=== PATIENT | male | born 1960 | race Caucasian/White ===

== ENCOUNTER 2019-01-29 16:12 | Inpatient (IN) | payer OTHER ==
[~2019-01-29] VITALS: Ht 177.8 cm; Wt 98.8 kg
[2019-01-29] VITALS (17 sets, daily range): BP systolic 98–142; BP diastolic 64–102; PULSE 56–97; RESP 18–21; Ht 177.8 cm; Wt 98.8 kg
[2019-01-29] MEDS ORDERED: ONDANSETRON 4 MG INJ IV STA (16:13)
[2019-01-29] MEDS ORDERED: morphine 4 MG/ML VIAL IV STA (16:13)
[2019-01-29] MEDS ORDERED: FUROSEMIDE 20 MG INJ IV STA (16:13)
[2019-01-29] MEDS ORDERED: NITROGLYCERIN 50 MG/D5W (PMX) 250 ML IV STA (16:13)
[2019-01-29] MEDS ORDERED: ASPIRIN 325 MG TAB PO STA (16:13)
[2019-01-29] MEDS ORDERED: DEXAMETHASONE 10 MG/ML 1 ML INJ IV STA (16:14)
[2019-01-29] MEDS ORDERED: MAGNESIUM SULFATE 2 GM/50 ML 50 ML IVPB STA (16:14)
[2019-01-29] MEDS ORDERED: ALBUTEROL 0.5% (NEB) 2.5 MG/0.5 ML AMP INH STA (16:14)
[2019-01-29] MEDS ORDERED: IPRATROPIUM (NEB) 0.5 MG/2.5 ML AMP INH STA (16:14)
[2019-01-29] MEDS ORDERED: NITROGLYCERIN (SL) 0.4 MG TAB SL PRN (16:30)
[2019-01-29] MEDS ORDERED: PROPOFOL 100 ML ONE (16:39)
[2019-01-29] MEDS ORDERED: PROPOFOL 100 ML IV STA (16:40)
[2019-01-29] MEDS ORDERED: CEFEPIME 2GM/50 ML (PMX) 50 ML IVPB STA (16:44)
[2019-01-29] MEDS ORDERED: SOD CHLORIDE 0.9% 1,000 ML IV STA (16:44)
[2019-01-29] MEDS ORDERED: MIDAZOLAM (DRIP) 50 mg/50 mL 50 ML IV STA (16:44)
[2019-01-29] MEDS ORDERED: FENTAnyl 50 MCG/ML VIAL ONE (16:49)
[2019-01-29] MEDS ORDERED: MIDAZOLAM 1 MG/ML 2 ML INJ ONE (16:55)
[2019-01-29] MEDS ORDERED: FENTAnyl 50 MCG/ML VIAL IV ONE ×2 (17:00→18:30)
[2019-01-29] MEDS ORDERED: SUCCINYLCHOLINE CHLORIDE 100 MG/5 ML SYG IV ONE ×2 (17:00→21:00)
[2019-01-29] MEDS ORDERED: FENTAnyl (DRIP) 1000 mcg/100mL 100 ML IV ONE (17:00)
[2019-01-29] MEDS ORDERED: ETOMIDATE 20 MG INJ IV ONE (17:00)
[2019-01-29] MEDS ORDERED: VANCOMYCIN 1 GM (PMX) 250 ML IVPB ONE (17:00)
[2019-01-29] MEDS ORDERED: MIDAZOLAM 1 MG/ML 2 ML INJ IV ONE ×3 (17:00→18:30)
[2019-01-29] MEDS ORDERED: NORepinephrine 8MG/250 ML (PMX 250 ML ONE (17:05)
[2019-01-29] MEDS ORDERED: ALBU90AE INHALATION (17:22)
[2019-01-29] MEDS ORDERED: ATOR20TA38 PO (17:23)
[2019-01-29] MEDS ORDERED: AZIT250T13 PO (17:24)
[2019-01-29] MEDS ORDERED: BUDE6HFA INHALATION (17:24)
[2019-01-29] MEDS ORDERED: DABI150C PO (17:25)
[2019-01-29] MEDS ORDERED: FURO20TA3 PO (17:25)
[2019-01-29] MEDS ORDERED: GUAI400T22 PO (17:26)
[2019-01-29] MEDS ORDERED: [UNRECOGNIZED DRUG - CODE] PO (17:26)
[2019-01-29] MEDS ORDERED: IRON200V IV (17:28)
[2019-01-29] MEDS ORDERED: LOPE-123 PO (17:28)
[2019-01-29] MEDS ORDERED: LURA40TA PO (17:29)
[2019-01-29] MEDS ORDERED: METF500T24 PO (17:29)
[2019-01-29] MEDS ORDERED: METO-336 PO (17:29)
[2019-01-29] MEDS ORDERED: OMEP40CA6 PO (17:30)
[2019-01-29] MEDS ORDERED: PRED10TA PO (17:32)
[2019-01-29] MEDS ORDERED: SPIR25TA PO (17:33)
[2019-01-29] MEDS ORDERED: VIA100 PO (17:33)
[2019-01-29] MEDS ORDERED: TRAZ-111 PO (17:34)
[2019-01-29] MEDS ORDERED: TIOT18CA INHALATION (17:34)
[2019-01-29] MEDS ORDERED: VALS160T20 PO (17:34)
[2019-01-29] MEDS ORDERED: NORepinephrine 8MG/250 ML (PMX 250 ML IV STA (17:39)
[2019-01-29] MEDS ORDERED: SODIUM CHLORIDE 0.9% 1L BAG IV* STA (17:39)
[2019-01-29] MEDS ORDERED: MIDAZOLAM 1 MG/ML 5 ML INJ IV ONE (18:30)
--- NOTE | 2019-01-29 19:03 | ERD ---
ER Documentation Chief Complaint Chief Complaint sob today, field ekg showed STEMI HPI 58-year-old gentleman presents via EMS for respiratory failure. History is provided by EMS and patient. Patient has a known history of CHF and COPD. It appears the patient has shortness of breath over the past 12 to 24 hours with significant work of breathing requiring positive pressure ventilation via EMS. Upon arrival the patient is in respiratory distress and blood pressure is greater than 200. Patient states this feels more like a COPD exacerbation and CHF but does note lower extremity pitting edema. He denies any chest pain or pr essure. No fevers or chills or cough. Remainder of HPI is very limited given critical nature of the patient. ROS Limited as documented above Medications Home Meds Reported Medications Valsartan* (Diovan*) 160 Mg Tablet, 160 MG PO BID, TAB 01/29/19 Trazodone Hcl* (Trazodone Hcl*) 50 Mg Tablet, 50 MG PO QHS, #30 TAB 01/29/19 Tiotropium [place]* (Spiriva*) 18 Mcg Cap.w.dev, 1 CAP INHALATION DAILY, #30 CAP 01/29/19 Spironolactone* (Aldactone*) 25 Mg Tablet, 25 MG PO DAILY, #30 TAB 01/29/19 Sildenafil Citrate* (Viagra*) 100 Mg Tablet, 100 MG PO TID PRN for FOR PULMONAREY HTN, TAB 01/29/19 Prednisone* (Prednisone*) 10 Mg Tab, 10 MG PO DIRECTED, TAB 2TAB DAILY-FOR 2 DAYS 1TAB DAILY-FOR 2 DAYS 01/29/19 Omeprazole* (Omeprazole*) 40 Mg Capsule.dr, 40 MG PO DAILY, #30 CAP 01/29/19 Metoprolol Succinate* (Toprol XL*) 100 Mg Tab.sr.24h, 100 MG PO DAILY, #30 TAB 01/29/19 Metformin Hcl* (Metformin Hcl*) 500 Mg Tablet, 500 MG PO WITH BREAKFAST DINNE, #60 TAB 01/29/19 Lurasidone Hcl (LATUDA) 40 Mg Tablet, 40 MG PO DAILY, #30 TAB 01/29/19 Loperamide Hcl* (Loperamide Hcl*) 2 Mg Cap, 2 MG PO Q6H, CAP 01/29/19 Iron Sucrose (Venofer) 200 Mg/10 Ml Vial, 10 ML IV Q7D, VIAL 01/29/19 Imatinib Mesylate* (Gleevec*) 100 Mg Tablet, 200 MG PO BID, TAB 01/29/19 Guaifenesin* (Refenesen*) 400 Mg Tablet, 400 MG PO BID PRN for COUGH, TAB 01/29/19 Furosemide* (Furosemide*) 20 Mg Tablet, 20 MG PO BID, #30 TAB 01/29/19 Dabigatran Etexilate Mesylate* (Pradaxa*) 150 Mg Capsule, 150 MG PO Q12H, CAP 01/29/19 Budesonide-Formoterol Fumarate* (Symbicort*) 160-4.5 Hfa.aer.ad, 2 PUFF INHALATION BID, #1 EACH 01/29/19 Azithromycin* (Azithromycin*) 250 Mg Tablet, 250 MG PO DAILY, #4 TAB THREE TIMES A WEEK FOR COPD 01/29/19 Atorvastatin Calcium* (Atorvastatin Calcium*) 20 Mg Tablet, 20 MG PO QHS, #30 TAB 01/29/19 Albuterol Sulfate (Proair Respiclick) 90 Mcg Aer.pow.ba, 2 PUFF INHALATION Q4 PRN for SHORTNESS OF BREATH, #1 BOTTLE 01/29/19 Allergies Allergies: Coded Allergies: No Known Allergy (Unverified , 01/29/19) PMhx/Soc History of Surgery: Yes (neck surgery) Hx Respiratory Disorders: Yes (copd) Hx Cardiac Disorders: Yes (chf) Smoking Status: Unknown if ever smoked FmHx Family History: No diabetes Physical Exam Vitals Vital Signs Date Temp Pulse Resp B/P (MAP) Pulse Ox O2 O2 Flow FiO2 Time Delivery Rate 01/29/19 99 10 100 100 17:05 01/29/19 122 99 100 16:23 01/29/19 121 30 111/82 99 CPAP 16:20 (92) 01/29/19 98.5 125 28 151/104 91 16:14 (120) Physical Exam General: Extreme respiratory distress and diaphoresis Head: Normocephalic, atraumatic. Eyes: Pupils equally reactive, EOM intact ENT: Moist mucous membranes Neck: Supple, no lymphadenopathy Respiratory: Decreased aeration bilaterally with increased work of breathing Cardiovascular: Tachycardia, no murmurs, rubs, or gallops Abdominal: Soft, non-tender, non-distended, no peritoneal signs : Deferred MSK: Bilateral lower extremity pitting edema, no unilateral swelling, 5/5 strength Neurologic: Alert and oriented, moving all extremities, limited exam Skin: No rash Psych: Normal mood Result Diagram: 01/29/19 1617 01/29/19 1617 Results 24 hrs Laboratory Tests Test 01/29/19 16:17 01/29/19 16:26 01/29/19 16:39 White Blood Count 28.8 10^3/ul Red Blood Count 3.79 10^6/ul Hemoglobin 12.4 g/dl Hematocrit 37.2 % Mean Corpuscular Volume 98.2 fl Mean Corpuscular Hemoglobin 32.7 pg Mean Corpuscular 33.3 g/dl Hemoglobin Concent Red Cell Distribution Width 11.9 % Platelet Count 290 10^3/UL Mean Platelet Volume 8.9 fl Immature Granulocytes % 1.200 % Neutrophils % % Segmented Neutrophils % (Manual) 93 % Band Neutrophils % (Manual) 1 % Lymphocytes % % Lymphocytes % (Manual) 6 % Monocytes % % Eosinophils % % Basophils % % Nucleated Red Blood Cells % 0.0 /100WBC Immature Granulocytes # 0.350 10^3/ul Neutrophils # 10^3/ul Neutrophils # (Manual) 26.8 10^3/ul Band Neutrophils # 0.2 10^3/ul Lymphocytes (Manual) 1.7 10^3/ul Lymphocytes # 10^3/ul Monocytes # 10^3/ul Eosinophils # 10^3/ul Basophils # 10^3/ul Nucleated Red Blood Cells # 10^3/ul Platelet Estimate NORMAL Prothrombin Time 13.0 Sec Prothrombin Time Ratio 1.0 INR International Normalized Ratio 0.97 Activated Partial Thromboplast 23.3 Sec Time Sodium Level 140 mmol/L Potassium Level 4.8 mmol/L Chloride Level 95 mmol/L Carbon Dioxide Level 37 mmol/L Anion Gap 8 Blood Urea Nitrogen 26 mg/dl Creatinine 0.82 mg/dl Est Glomerular Filtrat Rate mL/min > 60 mL/min Glucose Level 195 mg/dl Calcium Level 8.5 mg/dl Total Bilirubin 1.8 mg/dl Direct Bilirubin 0.00 mg/dl Indirect Bilirubin 1.8 mg/dl Aspartate Amino Transf (AST/SGOT) 58 IU/L Alanine 50 IU/L Aminotransferase (ALT/SGPT) Alkaline Phosphatase 90 IU/L Troponin I 0.047 ng/ml 0.046 ng/ml B-Type Natriuretic Peptide 1930 PG/ML Total Protein 6.4 g/dl Albumin 3.5 g/dl Globulin 2.90 g/dl Albumin/Globulin Ratio 1.20 POC Venous Lactate 2.6 mmol/L Creatine Kinase 394 IU/L Creatine Kinase Index 1.7 Creatinine Kinase MB (Mass) 6.57 ng/ml Current Medications Medications Dose Sig/Barb Start Time Status Last (Trade) Ordered Route PRN Stop Time Admin Dose Reason Admin Aspirin 325 mg ONCE STAT 01/29/19 DC (Aspirin) PO 16:13 01/29/19 16:14 1 tab Q5M UP TO 3 01/29/19 Nitroglycerin DOSES PRN 16:30 SL .CHEST (Nitroglyceri PAIN n (Sl Tab) 0.4 Mg) 250 ml @ 6 ONCE STAT 01/29/19 01/29/19 Nitroglycerin mls/hr IV 16:13 16:16 / Dextrose 01/31/19 09:52 Morphine 4 mg ONCE STAT 01/29/19 DC Sulfate IV 16:13 (morphine) 01/29/19 16:52 Ondansetron 4 mg ONCE STAT 01/29/19 DC HCl (Zofran IV 16:13 Inj) 01/29/19 16:14 Furosemide 60 mg ONCE STAT 01/29/19 DC (Lasix) IV 16:13 01/29/19 16:14 Albuterol 15 mg ONCE STAT 01/29/19 DC 01/29/19 (Proventil INH 16:14 16:22 0.5% (Neb)) 01/29/19 16:16 Ipratropium 2 mg ONCE STAT 01/29/19 DC 01/29/19 [place] INH 16:14 16:23 (Atrovent 01/29/19 16:17 0.02% (Neb)) 10 mg ONCE STAT 01/29/19 DC 01/29/19 Dexamethasone IV 16:14 16:53 (Decadron) 01/29/19 16:17 Magnesium 50 ml @ 25 ONCE STAT 01/29/19 DC 01/29/19 Sulfate mls/hr IVPB 16:14 16:52 01/29/19 18:13 Propofol 100 ml @ ud STK-MED 01/29/19 DC ONCE .ROUTE 16:39 01/29/19 16:40 Etomidate 20 mg ONCE ONCE 01/29/19 DC 01/29/19 (Amidate) IV 17:00 16:31 01/29/19 17:01 120 mg ONCE ONCE 01/29/19 DC 01/29/19 Succinylcholi IV 17:00 16:31 ne Chloride 01/29/19 17:01 (Anectine Syringe) Propofol 100 ml @ 3 ONCE STAT 01/29/19 DC mls/hr IV 16:40 01/29/19 16:52 Fentanyl 100 ml @ 5 CONTINUOUS 01/29/19 01/29/19 mls/hr DRIP ONCE 17:00 17:19 IV 01/30/19 12:59 Cefepime HCl 50 ml @ ONCE STAT 01/29/19 DC 01/29/19 100 mls/hr IVPB 16:44 17:44 01/29/19 17:13 Vancomycin 250 ml @ ONCE ONCE 01/29/19 01/29/19 HCl 125 mls/hr IVPB 17:00 18:22 01/29/19 18:59 Sodium 1,000 ml @ Q1H STAT 01/29/19 DC 01/29/19 Chloride 1,000 mls/hr IV 16:44 16:44 01/29/19 17:43 Fentanyl 100 mcg ONCE ONCE 01/29/19 DC 01/29/19 (Sublimaze) IV 17:00 17:06 01/29/19 17:01 Midazolam 2 mg ONCE ONCE 01/29/19 DC 01/29/19 HCl IV 17:00 17:06 (Versed) 01/29/19 17:01 Midazolam 50 ml @ 3 ONCE STAT 01/29/19 01/29/19 HCl mls/hr IV 16:44 17:25 01/30/19 09:23 Fentanyl 100 mcg STK-MED 01/29/19 DC (Sublimaze) ONCE .ROUTE 16:49 01/29/19 16:50 Midazolam 2 mg STK-MED 01/29/19 DC HCl ONCE .ROUTE 16:55 (Versed) 01/29/19 16:56 250 ml @ ud STK-MED 01/29/19 DC Norepinephrin ONCE .ROUTE 17:05 e 01/29/19 17:06 Sodium 2,000 ml BOLUS OVER 2 01/29/19 DC 01/29/19 Chloride HOURS STAT 17:39 17:30 (NS) IV* 01/29/19 17:41 250 ml @ ONCE STAT 01/29/19 01/29/19 Norepinephrin 7.5 mls/hr IV 17:39 17:30 e 01/31/19 02:58 Fentanyl 100 mcg ONCE ONCE 01/29/19 DC 01/29/19 (Sublimaze) IV 18:30 18:34 01/29/19 18:31 Midazolam 4 mg ONCE ONCE 01/29/19 DC HCl IV 18:30 (Versed) 01/29/19 18:30 Midazolam 2 mg ONCE ONCE 01/29/19 DC 01/29/19 HCl IV 18:30 17:12 (Versed) 01/29/19 18:31 Midazolam 4 mg ONCE ONCE 01/29/19 DC 01/29/19 HCl IV 18:30 18:34 (Versed) 01/29/19 18:31 Procedures/MDM EKG, MONITORS, & DIAGNOSTIC IMAGING: EKG #1 EKG: I reviewed and interpreted a 12-lead EKG. Rhythm: Sinus tachycardia, wide complex, possible left bundle branch block ST Changes: No contiguous ST segment elevations T waves: No contiguous T wave inversions Impression: Abnormal EKG EKG #2 EKG: I reviewed and interpreted a 12-lead EKG. Rhythm: Sinus tachycardia, left bundle branch block ST Changes: No contiguous ST segment elevations T waves: No contiguous T wave inversions Impression: Abnormal EKG Chest x-ray #1 Chest x-ray: I reviewed and interpreted a 1 view of the chest Mediastinum: No enlargement Cardiac silhouette: No cardiomegaly Airspace: Interstitial process, expanded lung reilly Bones: No evidence of fracture Chest x-ray #2 Chest x-ray: I reviewed and interpreted a 1 view of the chest Mediastinum: No enlargement Cardiac silhouette: No cardiomegaly Airspace: Endotracheal tube in good position, large right-sided pneumothorax Bones: No evidence of fracture Chest x-ray #3 Chest x-ray: I reviewed and interpreted a 1 view of the chest Mediastinum: No enlargement Cardiac silhouette: No cardiomegaly Airspace: Endotracheal tube in good position, resolution of large right-sided pneumothorax Bones: No evidence of fracture PROCEDURES: Intubation Note: Indication: Airway protection Consent: This was an emergent situation, implied consent was observed RSI Medications: Etomidate 20 mg, succinylcholine 120 mg Tube size: 8.0 Secured at: 24 at the mouth Procedure: Endotracheal intubation was performed. The patient was preoxygenated with supplemental oxygen, the room was set up with emergency airway equipment including [id number], suction, and adjunct airways. Direct visualization of the cords was performed with direct laryngoscopy using [video laryngoscope], however I was unable to manipulate the endotracheal tube to the vocal cords given positioning and body habitus of the patient. A bougie was inserted without difficulty and a 7.5 endotracheal tube was inserted without difficulty. However, the balloon of the endotracheal tube seem to have burst and would not stay inflated. The endotracheal tube was exchanged over a bougie with an 8.0 endotracheal tube successfully. Balloon was inflated. Bougie rem katie intact. Bilateral breath sounds were auscultated, color change was observed. The tube was then secured in a postintubation chest x-ray was ordered. The patient tolerated the procedure well there were no complications. Central Line Note: Consent: [Critical patient, unable to obtain informed consent] Indication: Critically ill patient requiring specialized vascular access for fluid or pressor management Location: Right femoral vein Indication: Difficult access given recent chest tube placement and intubation Procedure: Sterile procedure was observed throughout insertion of the central line. The insertion site was prepped with sterile solution. [place] technique was performed. Insertion of a needle into the vein was obtained with return of dark, nonpulsatile blood. The wire was then threaded through the needle without complication. A small skin incision was made, the needle was removed intact, dilation of the vein was performed and insertion of a triple lumen catheter was completed. The catheter was then sutured to the skin. All 3 ports naheed back and flushed without difficulty. A sterile dressing was applied. The patient tolerated the procedure well there were no complications. Chest Tube Placement by me: Patient was critically ill and intubated and cannot provide informed consent. Informed consent assumed. A sterile field was prepped Anesthesia: Patient intubated with sedation and pain medications intravenously Location: Mid-Anterior Axillary Line, approximate 5th intercostal Device: 20 [place] chest tube Technique: Vertical incision, blunt dissection above the superior rib border, tactile confirmation Results: Chest tube fogging Secured with suture and taping. No complications. Attached to hospital for special care. LAB INTERPRETATION: I reviewed the laboratory testing and it shows significant leukocytosis of 28.8 hemoglobin 12.4. Elevated lactic acid of 2.6, no evidence of renal failure. Indeterminate troponin of 0.047 downtrending. Elevated BNP of 1930 MEDICAL DECISION MAKING: The patient presents with significant hypertension, shortness of breath and respiratory failure. The patient was placed on positive pressure ventilation here in the emergency room setting. Given the patient's presentation of severe hypertension, peripheral edema and decreased duration the initial concern was for hypertensive emergency and acute flash pulmonary edema or CHF exacerbation. There is additional concern for COPD exacerbation. The patient was treated for both. Patient initially had an abnormal EKG that was reading acute [place]. However, the EKG did not seem to meet STEMI criteria. An emergent phone call was placed to Dr. Lees, on-call stamp maker. Initial conversation occurred around 4:16 PM. He agrees that the EKG does not fit criteria for STEMI or Supervisor Cloth Winding activation. Patient had no active chest pain or pressure. He recommends medical management, blood pressure control and reassessment. ER COURSE: * Based on the initial assessment the patient was treated for flash pulmonary edema with positive pressure ventilation, preload and afterload reduction including nitroglycerin, Lasix. * The patient had a dramatic improvement of blood pressure but still had significant respiratory distress. He was receiving in-line breathing treatments, steroids, magnesium. I did not feel that epinephrine was appropriate given his possible concomitant CHF and flash pulmonary edema. * The patient shortly after started to inform me that he was feeling tired and did not think that he could breathe on his own any longer. Decision was made to intubate. The patient was explained the risk benefits alternatives and he is agreeable. * Patient was intubated as documented above. * Chest x-ray after intubation showed large right-sided pneumothorax. Likely secondary to barotrauma secondary to positive pressure ventilation from BiPAP and ventilator. * A right-sided chest tube was inserted with inflation of 1 confirmed with chest x-ray imaging. The patient was hypotensive possibly secondary to pneumothorax but additionally possibly secondary to hypovolemia * There is initial concern that the patient would not tolerate volume given hesitation of pulmonary edema however at this point the patient is intubated. A full 30/kg bolus of saline was provided. Blood cultures were taken. Patient was given broad-spectrum antibiotics. I am not convinced this is infectious in etiology. Empiric coverage appropriate. * Patient's blood pressure warranted a central line and a femoral line was placed. Levo was initiated * At this time the patient is critically ill requiring pressors, antibiotics, respiratory support chest tube and central line. CONSULTATION: [None] DISPOSITION PLAN: Accepting care team and consultations: I discussed the current laboratory data, diagnostic imaging and emergency care provided. Admitting team: Dr. Doulgas Admitting team indication: Insurance directed Critical Care Note: Total time: 60min Indication/Organ System Threat: Acute respiratory failure, hypovolemia, shock, right-sided pneumothorax I spent the above amount of critical care time with the patient, not including billable procedures. This included chart review, consultations, repeat bedside evaluations, and titration of appropriate medications to prevent cardiopulmonary or respiratory collapse. Departure Diagnosis: Primary Impression: Acute respiratory failure Respiratory failure complication: hypoxia Qualified Codes: J96.01 - Acute respiratory failure with hypoxia Additional Impressions: Hypertensive emergency COPD exacerbation Pneumothorax, right Shock SIRS (systemic inflammatory response syndrome) Condition: Critical TI POLANCO MD January 29, 2019 19:02
--- NOTE | 2019-01-29 19:17 | HP ---
Date/Time of Note Date/Time of Note DATE: 01/29/19 TIME: 19:08 Assessment/Plan VTE Prophylaxis SCD applied (from Nsg): Yes Pharmacological prophylaxis: heparin Lines/Catheters IV Catheter Type (from Nrsg): Saline Lock Assessment/Plan Hospital Course 58 yo male with likley COPD and CHF though exact history unknown who presented w ith respiratory distress and hypercapneic respiratory failure. Was on BIPAP when decompensated and found to have pneumothorax. Now intubated and with R chest tube Acute hypercapenic respiratory failure: - likely from COPD per reports and respriatory acidosis. will give Bronchodilatros, steroids, abx - Mechanical ventilation per pulmonary Pneumothorax: - Chest tube per pulmonary Further management pendign clinical course To ICU Result Diagram: 01/29/19 1617 01/29/19 1617 Results 24hrs Laboratory Tests Test 01/29/19 16:17 01/29/19 16:26 01/29/19 16:39 01/29/19 16:40 White Blood Count 28.8 H Red Blood Count 3.79 L Hemoglobin 12.4 L Hematocrit 37.2 L Mean Corpuscular 98.2 Volume Mean Corpuscular 32.7 Hemoglobin Mean Corpuscular 33.3 Hemoglobin Concen t Red Cell 11.9 Distribution Width Platelet Count 290 Mean Platelet 8.9 Volume Immature 1.200 H Granulocytes % Neutrophils % Segmented 93 H Neutrophils % (Manual) Band Neutrophils 1 % (Manual) Lymphocytes % Lymphocytes % 6 L (Manual) Monocytes % Eosinophils % Basophils % Nucleated Red 0.0 Blood Cells % Immature 0.350 H Granulocytes # Neutrophils # Neutrophils # 26.8 H (Manual) Band Neutrophils 0.2 # Lymphocytes 1.7 (Manual) Lymphocytes # Monocytes # Eosinophils # Basophils # Nucleated Red Blood Cells # Platelet Estimate NORMAL Prothrombin Time 13.0 Prothrombin Time 1.0 Ratio INR International 0.97 Normalized Ratio Activated 23.3 Partial Thrombopl ast Time Sodium Level 140 Potassium Level 4.8 Chloride Level 95 L Carbon Dioxide 37 H Level Anion Gap 8 Blood Urea 26 H Nitrogen Creatinine 0.82 Est Glomerular > 60 Filtrat Rate mL/min Glucose Level 195 Calcium Level 8.5 Total Bilirubin 1.8 H Direct Bilirubin 0.00 Indirect 1.8 H Bilirubin Aspartate Amino 58 H Transf (AST/SGOT) Alanine 50 Aminotransferase (ALT/SGPT) Alkaline 90 Phosphatase Troponin I 0.047 0.046 B-Type 1930 H Natriuretic Peptide Total Protein 6.4 Albumin 3.5 Globulin 2.90 Albumin/Globulin 1.20 Ratio POC Venous 2.6 *H Lactate Creatine Kinase 394 H Creatine Kinase 1.7 Index Creatinine Kinase 6.57 H MB (Mass) Blood Gas Blood arterial Specimen Source Arterial Blood 01/29/2019 6:35:5 Date Drawn 1 PM Arterial Blood pH 7.237 *L (Temp corrected) Arterial Blood 67.2 H pCO2 (Temp correct) Arterial Blood 432.9 H pO2 (Temp corrected) Arterial Blood 28.0 H HCO3 Arterial Blood -0.5 Base Excess Arterial Blood 99.0 H Oxygen Saturation Adeel Test ACCEPTAB Arterial Blood Left Radial Gas Puncture Site Arterial 0.3 Blood Carboxyhemo globin Arterial Blood 0.3 Methemoglobin Blood Gas A-a O2 212.9 H Differential Oxyhemoglobin 98.4 Percent Blood Gas 37.0 Temperature Blood Gas 10.0 Respiration Rate Blood Gas Actual 10 Respiration Rate Blood Gas VENT - AC Modality FiO2 100.0 Blood Gas Tidal 800.0 Volume Blood Gas Low 5.0 PEEP Setting Blood Gas DR. POLANCO Critical Value Read Back Blood Gas José Manuel Notified Whom Blood Gas 01/29/2019 6:49:2 Notified Time 1 PM HPI/ROS Admit Date/Time Admit Date/Time Hx of Present Illness 58 yo male with unknown PMH who presented with respiratory distress From EMS notes patient was in respiratory distress in the field. Was wheeizng. Given BIPAP in the field and bronchodilators. On arrival here was given BIPAP for suspected COPD vs CHF. Then decompensated and XR showed large pneumothorax. Emergently intubated and now a R chest tube has been placed Pateint sedated on the ventilator at this time ROS Constitutional: no complaints, improved Eyes: no complaints ENT: no complaints Respiratory: no complaints Cardiovascular: no complaints Gastrointestinal: no complaints Genitourinary: no complaints Musculoskeletal: no complaints Skin: no complaints Neurologic: no complaints Endocrine: no complaints Lymphatic: no complaints Psychological: no complaints, nl mood/affect Immunologic: no complaints PMH/Family/Social Past Medical History Medical History: no pertinent history Medications Current Medications Nitroglycerin (Nitroglycerin (Sl Tab) 0.4 Mg) 1 tab Q5M UP TO 3 DOSES PRN SL .CHEST PAIN; Start 01/29/19 at 16:30 Nitroglycerin/ Dextrose 250 ml @ 6 mls/hr ONCE STAT IV Last administered on 01/29/19at 16:16; Admin Dose 30 MLS/HR; Start 01/29/19 at 16:13; Stop 01/31/19 at 09:52 Fentanyl 100 ml @ 5 mls/hr CONTINUOUS DRIP ONCE IV Last administered on 01/29/19at 17:19; Admin Dose 5 MLS/HR; Start 01/29/19 at 17:00; Stop 01/30/19 at 12:59 Midazolam HCl 50 ml @ 3 mls/hr ONCE STAT IV Last administered on 01/29/19at 17:25; Admin Dose 3 MLS/HR; Start 01/29/19 at 16:44; Stop 01/30/19 at 09:23 Norepinephrine 250 ml @ 7.5 mls/hr ONCE STAT IV Last administered on at 17:30; Admin Dose 7.5 MLS/HR; Start 01/29/19 at 17:39; Stop 01/31/19 at 02:58 Coded Allergies: No Known Allergy (Unverified , 01/29/19) Past Surgical History Past Surgical Hx: no surgical history Family History Significant Family History: no pertinent family hx Social History Alcohol Use: none Smoking Status: Unknown if ever smoked Drug Use: none Exam/Review of Systems Vital Signs Vitals Vital Signs Date Temp Pulse Resp B/P (MAP) Pulse Ox O2 O2 Flow FiO2 Time Delivery Rate 01/29/19 56 16 100 40 19:04 01/29/19 64/42 (49) Mechanical 18:45 Ventilator 01/29/19 98.5 16:14 Exam Exam Intubated, sedated Lungs clear anteriorly R sided chest tube RRR Soft nt nd Ext with mild edema, RE Strauss MD January 29, 2019 19:17
[2019-01-29] MEDS ORDERED: NACL 0.9% 3 ML SYG IV SCH (19:30)
[2019-01-29] MEDS ORDERED: LEVOFLOXACIN 750MG/D5W (PMX) 150 ML IVPB SCH (19:30)
[2019-01-29] MEDS ORDERED: NITROGLYCERIN (SL) 0.4 MG TAB ONE (21:00)
[2019-01-29] MEDS ORDERED: ETOMIDATE 20 MG INJ ONE (21:00)
[2019-01-29] MEDS ORDERED: ALBUTEROL/IPRATROPIUM (NEB) 3 ML AMP HHN SCH (21:00)
[2019-01-29] MEDS: MIDAZOLAM (DRIP) 50 mg/50 mL 50 ML IV SCH (21:35)
[2019-01-29] MEDS: METHYLPREDNISOLONE 40 MG INJ IV SCH (21:35)
[2019-01-29] MEDS: ALBUTEROL HFA 8 GM INHALER INH SCH (21:49)
[2019-01-29] MEDS: IPRATROPIUM (HFA) 12.9 GM INHALER INH SCH (21:49)
[2019-01-30] VITALS (97 sets, daily range): BP systolic 76–137; BP diastolic 49–117; PULSE 52–128; RESP 13–33
[2019-01-30] MEDS: FENTAnyl (DRIP) 1000 mcg/100mL 100 ML IV SCH ×3 (00:45→19:56)
[2019-01-30] MEDS: NORepinephrine 8MG/250 ML (PMX 250 ML IV SCH ×2 (00:57→11:09)
[2019-01-30] MEDS: IPRATROPIUM (HFA) 12.9 GM INHALER INH SCH ×6 (01:10→21:29)
[2019-01-30] MEDS: ALBUTEROL HFA 8 GM INHALER INH SCH ×3 (01:10→09:06)
[2019-01-30] MEDS: PROPOFOL 100 ML IV SCH ×2 (03:00→13:06)
[2019-01-30] MEDS: MIDAZOLAM (DRIP) 50 mg/50 mL 50 ML IV SCH ×4 (03:59→19:53)
[2019-01-30] MEDS: FUROSEMIDE 20 MG INJ IV SCH ×2 (05:21→18:03)
[2019-01-30] MEDS: METHYLPREDNISOLONE 40 MG INJ IV SCH ×3 (05:21→23:17)
--- NOTE | 2019-01-30 10:51 | PN ---
Date/Time of Note Date/Time of Note DATE: 01/30/19 TIME: 10:42 Assessment/Plan VTE Prophylaxis Risk score (from Ns)>0 risk: 5 SCD applied (from Ns): Yes Pharmacological prophylaxis: other Lines/Catheters IV Catheter Type (from Nrsg): Central Line Central line still needed: Yes Urinary Cath still in place: Yes Reason Cath still needed: urinary retention Assessment/Plan Hospital Course S: Patient still intubated, unable to get ABG this morning. About to be started on tube feeds. On pressor support as well. O: VS- see below PE: Intubated, sedated Lungs clear anteriorly R sided chest tube in place RRR Soft nt nd Ext with mild edema, wamr A/P: 58 yo male with likely COPD and CHF though exact history unknown who presented with respiratory distress and hypercapneic respiratory failure. Was on BIPAP when decompensated and found to have pneumothorax, intubated and with R chest tube. # Acute hypercapenic respiratory failure- likely from COPD per reports and respiratory acidosis -slowly improving -For now continue as needed Bronchodilatros, steroids, abx -Monitor white blood cell, continue mechanical ventilation per pulmonary # Pneumothorax: Found on chest x-ray yesterday, although chest x-ray this mo rning appears to not show any more pneumothorax. Chest tube placed yesterday in the ER. -Monitor, will consult CTS team for chest tube management -Also follow up pulmonary recommendations #Leukocytosis: No fevers. Patient is on steroids, however white blood cell count hovering in the 28-30 range. -Continue broad-spectrum antibiotics, also check UA and follow-up blood culture results -Consider infectious disease consult Dispo: Further management pending clinical course Result Diagram: 01/30/19 0446 01/30/19 0446 Results 24hrs Laboratory Tests Test 01/29/19 16:17 01/29/19 16:26 01/29/19 16:39 01/29/19 16:40 White Blood 28.8 H Count Red Blood Count 3.79 L Hemoglobin 12.4 L Hematocrit 37.2 L Mean 98.2 Corpuscular Volume Mean 32.7 Corpuscular Hemoglobin Mean 33.3 Corpuscular Hemoglobin Conc ent Red Cell 11.9 Distribution Width Platelet Count 290 Mean Platelet 8.9 Volume Immature 1.200 H Granulocytes % Neutrophils % 89.0 H Segmented 93 H Neutrophils % (Manual) Band 1 Neutrophils % (Manual) Lymphocytes % 5.9 L Lymphocytes % 6 L (Manual) Monocytes % 3.6 Eosinophils % 0.1 Basophils % 0.2 Nucleated Red 0.0 Blood Cells % Immature 0.350 H Granulocytes # Neutrophils # 25.7 H Neutrophils # 26.8 H (Manual) Band 0.2 Neutrophils # Lymphocytes 1.7 (Manual) Lymphocytes # 1.7 Monocytes # 1.1 H Eosinophils # 0.0 Basophils # 0.1 Nucleated Red 0.0 Blood Cells # Platelet NORMAL Estimate Prothrombin 13.0 Time Prothrombin 1.0 Time Ratio INR 0.97 International Normalized Rati o Activated 23.3 Partial Thrombo plast Time Sodium Level 140 Potassium Level 4.8 Chloride Level 95 L Carbon Dioxide 37 H Level Anion Gap 8 Blood Urea 26 H Nitrogen Creatinine 0.82 Est Glomerular > 60 Filtrat Rate mL/min Glucose Level 195 Calcium Level 8.5 Total Bilirubin 1.8 H Direct 0.00 Bilirubin Indirect 1.8 H Bilirubin Aspartate Amino 58 H Transf (AST/SGO T) Alanine 50 Aminotransferas e (ALT/SGPT) Alkaline 90 Phosphatase Troponin I 0.047 0.046 B-Type 1930 H Natriuretic Peptide Total Protein 6.4 Albumin 3.5 Globulin 2.90 Albumin/Globuli 1.20 n Ratio POC Venous 2.6 *H Lactate Creatine Kinase 394 H Creatine Kinase 1.7 Index Creatinine 6.57 H Kinase MB (Mass) Blood Gas Blood Specimen arterial Source Arterial Blood 01/29/2019 6:35 Date Drawn :51 PM Arterial Blood 7.237 *L pH (Temp corrected ) Arterial Blood 67.2 H pCO2 (Temp correct) Arterial Blood 432.9 H pO2 (Temp corrected ) Arterial Blood 28.0 H HCO3 Arterial Blood -0.5 Base Excess Arterial Blood 99.0 H Oxygen Saturati on Adeel Test ACCEPTAB Arterial Blood Left Radial Gas Puncture Site Arterial 0.3 Blood Carboxyhe moglobin Arterial Blood 0.3 Methemoglobin Blood Gas A-a 212.9 H O2 Differential Oxyhemoglobin 98.4 Percent Blood Gas 37.0 Temperature Blood Gas 10.0 Respiration Rate Blood Gas 10 Actual Respiration Rat e Blood Gas VENT - AC Modality FiO2 100.0 Blood Gas Tidal 800.0 Volume Blood Gas Low 5.0 PEEP Setting Blood Gas DR. POLANCO Critical Value Read Back Blood Gas José Manuel Notified Whom Blood Gas 01/29/2019 6:49 Notified Time :21 PM Test 01/29/19 18:54 01/29/19 19:30 01/30/19 01:04 01/30/19 04:46 Lactic Acid 2.4 *H 1.1 Level Blood Gas Blood arterial Specimen Source Arterial Blood 01/29/2019 7:45: Date Drawn 14 PM Arterial Blood 7.331 L pH (Temp corrected ) Arterial Blood 55.3 H pCO2 (Temp correct) Arterial Blood 113.0 H pO2 (Temp corrected ) Arterial Blood 28.6 H HCO3 Arterial Blood 1.8 Base Excess Arterial Blood 97.0 Oxygen Saturati on Adeel Test N/A Arterial Blood Right Brachial Gas Puncture Site Arterial 0.3 Blood Carboxyhe moglobin Arterial Blood 0.3 Methemoglobin Blood Gas A-a 108.6 H O2 Differential Oxyhemoglobin 96.4 Percent Blood Gas 37.0 Temperature Blood Gas 16.0 Respiration Rate Blood Gas 16 Actual Respiration Rat e Blood Gas VENT - AC Modality FiO2 40.0 Blood Gas Tidal 600.0 Volume Blood Gas Low 5.0 PEEP Setting Blood Gas MG Notified Whom Blood Gas 01/29/2019 7:52: Notified Time 10 PM Magnesium Level 2.6 H Creatine Kinase 299 H 233 H Creatine Kinase 3.3 3.6 Index Creatinine 9.72 H 8.46 H Kinase MB (Mass) Troponin I 0.050 0.054 White Blood 30.4 H Count Red Blood Count 3.19 L Hemoglobin 10.4 L Hematocrit 31.9 L Mean 100.0 Corpuscular Volume Mean 32.6 Corpuscular Hemoglobin Mean 32.6 Corpuscular Hemoglobin Conc ent Red Cell 12.2 Distribution Width Platelet Count 246 Mean Platelet 9.3 Volume Immature 1.300 H Granulocytes % Neutrophils % 96.5 H Lymphocytes % 0.8 L Monocytes % 1.3 Eosinophils % 0.0 Basophils % 0.1 Nucleated Red 0.0 Blood Cells % Immature 0.410 H Granulocytes # Neutrophils # 29.3 H Lymphocytes # 0.3 L Monocytes # 0.4 Eosinophils # 0.0 Basophils # 0.0 Nucleated Red 0.0 Blood Cells # Sodium Level 139 Potassium Level 4.8 Chloride Level 103 Carbon Dioxide 27 # Level Anion Gap 9 Blood Urea 24 H Nitrogen Creatinine 0.70 Est Glomerular > 60 Filtrat Rate mL/min Glucose Level 222 H Hemoglobin A1c 8.1 H Calcium Level 7.9 L Total Bilirubin 1.0 Direct 0.00 Bilirubin Indirect 1.0 Bilirubin Aspartate Amino 45 Transf (AST/SGO T) Alanine 74 H Aminotransferas e (ALT/SGPT) Alkaline 76 Phosphatase Total Protein 4.7 #L Albumin 2.7 L Globulin 2.00 Albumin/Globuli 1.35 n Ratio Test 01/30/19 07:00 Blood Gas Blood arterial Specimen Source Arterial Blood 01/30/2019 7:29: Date Drawn 50 AM Arterial Blood 7.373 pH (Temp corrected ) Arterial Blood 49.2 H pCO2 (Temp correct) Arterial Blood 66.3 L pO2 (Temp corrected ) Arterial Blood 28.0 H HCO3 Arterial Blood 2.1 Base Excess Arterial Blood 91.4 L Oxygen Saturati on Adeel Test ACCEPTAB Arterial Blood Left Radial Gas Puncture Site Arterial 0.3 Blood Carboxyhe moglobin Arterial Blood 0.4 Methemoglobin Blood Gas A-a 89.8 H O2 Differential Oxyhemoglobin 90.8 L Percent Blood Gas 37.0 Temperature Blood Gas 18.0 Respiration Rate Blood Gas 18 Actual Respiration Rat e Blood Gas VENT - AC Modality FiO2 30.0 Blood Gas Tidal 600.0 Volume Blood Gas Low 5.0 PEEP Setting Blood Gas TM Notified Whom Blood Gas 01/30/2019 7:55: Notified Time 32 AM Exam/Review of Systems Exam Vitals Vital Signs Date Temp Pulse Resp B/P (MAP) Pulse Ox O2 O2 Flow FiO2 Time Delivery Rate 01/30/19 67 18 96/67 (77) 99 10:15 01/30/19 Mechanical 10:00 Ventilator 01/30/19 30 09:40 01/30/19 97.7 07:00 Intake and Output 01/29/19 01/29/19 01/30/19 1515:00 23:00 07:00 IntakeIntake Total 3113 ml 240 ml OutputOutput Total 110 ml 293 ml BalanceBalance 3003 ml -53 ml Results Results 24hrs Laboratory Tests Test 01/29/19 16:17 01/29/19 16:26 01/29/19 16:39 01/29/19 16:40 White Blood 28.8 H Count Red Blood Count 3.79 L Hemoglobin 12.4 L Hematocrit 37.2 L Mean 98.2 Corpuscular Volume Mean 32.7 Corpuscular Hemoglobin Mean 33.3 Corpuscular Hemoglobin Conc ent Red Cell 11.9 Distribution Width Platelet Count 290 Mean Platelet 8.9 Volume Immature 1.200 H Granulocytes % Neutrophils % 89.0 H Segmented 93 H Neutrophils % (Manual) Band 1 Neutrophils % (Manual) Lymphocytes % 5.9 L Lymphocytes % 6 L (Manual) Monocytes % 3.6 Eosinophils % 0.1 Basophils % 0.2 Nucleated Red 0.0 Blood Cells % Immature 0.350 H Granulocytes # Neutrophils # 25.7 H Neutrophils # 26.8 H (Manual) Band 0.2 Neutrophils # Lymphocytes 1.7 (Manual) Lymphocytes # 1.7 Monocytes # 1.1 H Eosinophils # 0.0 Basophils # 0.1 Nucleated Red 0.0 Blood Cells # Platelet NORMAL Estimate Prothrombin 13.0 Time Prothrombin 1.0 Time Ratio INR 0.97 International Normalized Rati o Activated 23.3 Partial Thrombo plast Time Sodium Level 140 Potassium Level 4.8 Chloride Level 95 L Carbon Dioxide 37 H Level Anion Gap 8 Blood Urea 26 H Nitrogen Creatinine 0.82 Est Glomerular > 60 Filtrat Rate mL/min Glucose Level 195 Calcium Level 8.5 Total Bilirubin 1.8 H Direct 0.00 Bilirubin Indirect 1.8 H Bilirubin Aspartate Amino 58 H Transf (AST/SGO T) Alanine 50 Aminotransferas e (ALT/SGPT) Alkaline 90 Phosphatase Troponin I 0.047 0.046 B-Type 1930 H Natriuretic Peptide Total Protein 6.4 Albumin 3.5 Globulin 2.90 Albumin/Globuli 1.20 n Ratio POC Venous 2.6 *H Lactate Creatine Kinase 394 H Creatine Kinase 1.7 Index Creatinine 6.57 H Kinase MB (Mass) Blood Gas Blood Specimen arterial Source Arterial Blood 01/29/2019 6:35 Date Drawn :51 PM Arterial Blood 7.237 *L pH (Temp corrected ) Arterial Blood 67.2 H pCO2 (Temp correct) Arterial Blood 432.9 H pO2 (Temp corrected ) Arterial Blood 28.0 H HCO3 Arterial Blood -0.5 Base Excess Arterial Blood 99.0 H Oxygen Saturati on Adeel Test ACCEPTAB Arterial Blood Left Radial Gas Puncture Site Arterial 0.3 Blood Carboxyhe moglobin Arterial Blood 0.3 Methemoglobin Blood Gas A-a 212.9 H O2 Differential Oxyhemoglobin 98.4 Percent Blood Gas 37.0 Temperature Blood Gas 10.0 Respiration Rate Blood Gas 10 Actual Respiration Rat e Blood Gas VENT - AC Modality FiO2 100.0 Blood Gas Tidal 800.0 Volume Blood Gas Low 5.0 PEEP Setting Blood Gas DR. POLANCO Critical Value Read Back Blood Gas José Manuel Notified Whom Blood Gas 01/29/2019 6:49 Notified Time :21 PM Test 01/29/19 18:54 01/29/19 19:30 01/30/19 01:04 01/30/19 04:46 Lactic Acid 2.4 *H 1.1 Level Blood Gas Blood arterial Specimen Source Arterial Blood 01/29/2019 7:45: Date Drawn 14 PM Arterial Blood 7.331 L pH (Temp corrected ) Arterial Blood 55.3 H pCO2 (Temp correct) Arterial Blood 113.0 H pO2 (Temp corrected ) Arterial Blood 28.6 H HCO3 Arterial Blood 1.8 Base Excess Arterial Blood 97.0 Oxygen Saturati on Adeel Test N/A Arterial Blood Right Brachial Gas Puncture Site Arterial 0.3 Blood Carboxyhe moglobin Arterial Blood 0.3 Methemoglobin Blood Gas A-a 108.6 H O2 Differential Oxyhemoglobin 96.4 Percent Blood Gas 37.0 Temperature Blood Gas 16.0 Respiration Rate Blood Gas 16 Actual Respiration Rat e Blood Gas VENT - AC Modality FiO2 40.0 Blood Gas Tidal 600.0 Volume Blood Gas Low 5.0 PEEP Setting Blood Gas MG Notified Whom Blood Gas 01/29/2019 7:52: Notified Time 10 PM Magnesium Level 2.6 H Creatine Kinase 299 H 233 H Creatine Kinase 3.3 3.6 Index Creatinine 9.72 H 8.46 H Kinase MB (Mass) Troponin I 0.050 0.054 White Blood 30.4 H Count Red Blood Count 3.19 L Hemoglobin 10.4 L Hematocrit 31.9 L Mean 100.0 Corpuscular Volume Mean 32.6 Corpuscular Hemoglobin Mean 32.6 Corpuscular Hemoglobin Conc ent Red Cell 12.2 Distribution Width Platelet Count 246 Mean Platelet 9.3 Volume Immature 1.300 H Granulocytes % Neutrophils % 96.5 H Lymphocytes % 0.8 L Monocytes % 1.3 Eosinophils % 0.0 Basophils % 0.1 Nucleated Red 0.0 Blood Cells % Immature 0.410 H Granulocytes # Neutrophils # 29.3 H Lymphocytes # 0.3 L Monocytes # 0.4 Eosinophils # 0.0 Basophils # 0.0 Nucleated Red 0.0 Blood Cells # Sodium Level 139 Potassium Level 4.8 Chloride Level 103 Carbon Dioxide 27 # Level Anion Gap 9 Blood Urea 24 H Nitrogen Creatinine 0.70 Est Glomerular > 60 Filtrat Rate mL/min Glucose Level 222 H Hemoglobin A1c 8.1 H Calcium Level 7.9 L Total Bilirubin 1.0 Direct 0.00 Bilirubin Indirect 1.0 Bilirubin Aspartate Amino 45 Transf (AST/SGO T) Alanine 74 H Aminotransferas e (ALT/SGPT) Alkaline 76 Phosphatase Total Protein 4.7 #L Albumin 2.7 L Globulin 2.00 Albumin/Globuli 1.35 n Ratio Test 01/30/19 07:00 Blood Gas Blood arterial Specimen Source Arterial Blood 01/30/2019 7:29: Date Drawn 50 AM Arterial Blood 7.373 pH (Temp corrected ) Arterial Blood 49.2 H pCO2 (Temp correct) Arterial Blood 66.3 L pO2 (Temp corrected ) Arterial Blood 28.0 H HCO3 Arterial Blood 2.1 Base Excess Arterial Blood 91.4 L Oxygen Saturati on Adeel Test ACCEPTAB Arterial Blood Left Radial Gas Puncture Site Arterial 0.3 Blood Carboxyhe moglobin Arterial Blood 0.4 Methemoglobin Blood Gas A-a 89.8 H O2 Differential Oxyhemoglobin 90.8 L Percent Blood Gas 37.0 Temperature Blood Gas 18.0 Respiration Rate Blood Gas 18 Actual Respiration Rat e Blood Gas VENT - AC Modality FiO2 30.0 Blood Gas Tidal 600.0 Volume Blood Gas Low 5.0 PEEP Setting Blood Gas TM Notified Whom Blood Gas 01/30/2019 7:55: Notified Time 32 AM Medications Medication Current Medications IV Flush (NS 3 ml) 3 ml PER PROTOCOL IV ; Start 01/29/19 at 19:30 Methylprednisolone Sodium Succinate (Solu-Medrol) 30 mg Q8 IV Last administered on 01/30/19at 05:21; Admin Dose 30 MG; Start 01/29/19 at 22:00 Furosemide (Lasix) 20 mg BID DIURETICS IV Last administered on 01/30/19at 05:21; Admin Dose 20 MG; Start 01/30/19 at 06:00 Levofloxacin/ Dextrose 150 ml @ 100 mls/hr Q24H IVPB Last administered on 01/29/19at 20:04; Admin Dose 100 MLS/HR; Start 01/29/19 at 19:30 Norepinephrine 250 ml @ 1.875 mls/ hr TITRATE IV Last administered on 01/30/19a t 00:57; Admin Dose 26.25 MLS/HR; Start 01/29/19 at 21:00 Fentanyl 100 ml @ 2.5 mls/hr TITRATE IV Last administered on 01/30/19 00:45; Admin Dose 10 MLS/HR; Start 01/29/19 at 21:00 Midazolam HCl 50 ml @ 1 mls/hr TITRATE IV Last administered on 01/30/19 08:45; Admin Dose 10 MLS/HR; Start 01/29/19 at 21:00 Albuterol (Ventolin Hfa) 4 puff Q4H RESP THERAPY INH Last administered on 01/30/19 09:06; Admin Dose 4 PUFF; Start 01/29/19 at 21:27 Ipratropium Britton (Atrovent Hfa) 4 puff Q4H RESP THERAPY INH Last administered on 01/30/19 09:06; Admin Dose 4 PUFF; Start 01/29/19 at 21:28 Propofol 100 ml @ 2.964 mls/ hr Q12H IV Last administered on 01/30/19 03:00; Admin Dose 2.964 MLS/HR; Start 01/30/19 at 03:00 DUSTY VILLASENOR January 30, 2019 10:51
[2019-01-30] MEDS ORDERED: ALBUTEROL HFA 8 GM INHALER INH PRN (11:00)
[2019-01-30] MEDS ORDERED: VANCOMYCIN IV PER PHARMACY XX SCH (11:30)
--- NOTE | 2019-01-30 12:11 | CONS ---
Assessment/Plan Assessment/Plan Hospital Course (Demo Recall) Acute resp failure R PTX HCAP Hx recent C-spine surgery Leukocytosis Abx: Vanco Cefepime Plan: Stable on vent, continue abx, send bld/urine/sputum cx, procalcitonin level if cx's negative Consultation Date/Type/Reason Admit Date/Time Type of Consult id Requesting Provider: DUSTY VILLASENOR Date/Time of Note DATE: 01/30/19 TIME: 12:09 Past Medical History Medical History: no pertinent history Home Meds Reported Medications Valsartan* (Diovan*) 160 Mg Tablet, 160 MG PO BID, TAB 01/29/19 Trazodone Hcl* (Trazodone Hcl*) 50 Mg Tablet, 50 MG PO QHS, #30 TAB 01/29/19 Tiotropium [place]* (Spiriva*) 18 Mcg Cap.w.dev, 1 CAP INHALATION DAILY, #30 CAP 01/29/19 Spironolactone* (Aldactone*) 25 Mg Tablet, 25 MG PO DAILY, #30 TAB 01/29/19 Sildenafil Citrate* (Viagra*) 100 Mg Tablet, 100 MG PO TID PRN for FOR PULMONAREY HTN, TAB 01/29/19 Prednisone* (Prednisone*) 10 Mg Tab, 10 MG PO DIRECTED, TAB 2TAB DAILY-FOR 2 DAYS 1TAB DAILY-FOR 2 DAYS 01/29/19 Omeprazole* (Omeprazole*) 40 Mg Capsule.dr, 40 MG PO DAILY, #30 CAP 01/29/19 Metoprolol Succinate* (Toprol XL*) 100 Mg Tab.sr.24h, 100 MG PO DAILY, #30 TAB 01/29/19 Metformin Hcl* (Metformin Hcl*) 500 Mg Tablet, 500 MG PO WITH BREAKFAST DINNE, #60 TAB 01/29/19 Lurasidone Hcl (LATUDA) 40 Mg Tablet, 40 MG PO DAILY, #30 TAB 01/29/19 Loperamide Hcl* (Loperamide Hcl*) 2 Mg Cap, 2 MG PO Q6H, CAP 01/29/19 Iron Sucrose (Venofer) 200 Mg/10 Ml Vial, 10 ML IV Q7D, VIAL 01/29/19 Imatinib Mesylate* (Gleevec*) 100 Mg Tablet, 200 MG PO BID, TAB 01/29/19 Guaifenesin* (Refenesen*) 400 Mg Tablet, 400 MG PO BID PRN for COUGH, TAB 01/29/19 Furosemide* (Furosemide*) 20 Mg Tablet, 20 MG PO BID, #30 TAB 01/29/19 Dabigatran Etexilate Mesylate* (Pradaxa*) 150 Mg Capsule, 150 MG PO Q12H, CAP 01/29/19 Budesonide-Formoterol Fumarate* (Symbicort*) 160-4.5 Hfa.aer.ad, 2 PUFF INHALATION BID, #1 EACH 01/29/19 Azithromycin* (Azithromycin*) 250 Mg Tablet, 250 MG PO DAILY, #4 TAB THREE TIMES A WEEK FOR COPD 01/29/19 Atorvastatin Calcium* (Atorvastatin Calcium*) 20 Mg Tablet, 20 MG PO QHS, #30 TAB 01/29/19 Albuterol Sulfate (Proair Respiclick) 90 Mcg Aer.pow.ba, 2 PUFF INHALATION Q4 PRN for SHORTNESS OF BREATH, #1 BOTTLE 01/29/19 Medications Current Medications IV Flush (NS 3 ml) 3 ml PER PROTOCOL IV ; Start 01/29/19 at 19:30 Methylprednisolone Sodium Succinate (Solu-Medrol) 30 mg Q8 IV Last administered on 01/30/19at 05:21; Admin Dose 30 MG; Start 01/29/19 at 22:00 Furosemide (Lasix) 20 mg BID DIURETICS IV Last administered on 01/30/19at 05:21; Admin Dose 20 MG; Start 01/30/19 at 06:00 Norepinephrine 250 ml @ 1.875 mls/ hr TITRATE IV Last administered on 01/30/19 11:09; Admin Dose 18.75 MLS/HR; Start 01/29/19 at 21:00 Fentanyl 100 ml @ 2.5 mls/hr TITRATE IV Last administered on 01/30/19at 11:10; Admin Dose 10 MLS/HR; Start 01/29/19 at 21:00 Midazolam HCl 50 ml @ 1 mls/hr TITRATE IV Last administered on 01/30/19at 08:45; Admin Dose 10 MLS/HR; Start 01/29/19 at 21:00 Ipratropium [place] (Atrovent Hfa) 4 puff Q4H RESP THERAPY INH Last ad ministered on 01/30/19at 09:06; Admin Dose 4 PUFF; Start 01/29/19 at 21:28 Propofol 100 ml @ 2.964 mls/ hr Q12H IV Last administered on 01/30/19at 03:00; Admin Dose 2.964 MLS/HR; Start 01/30/19 at 03:00 Albuterol (Ventolin Hfa) 4 puff Q4H RESP THERAPY PRN INH SHORTNESS OF BREATH; Start 01/30/19 at 11:00 Cefepime HCl 50 ml @ 100 mls/hr Q12 IVPB ; Start 01/30/19 at 12:30 Vancomycin HCl (Vanco Iv Per Pharmacy) VANCOMYCIN PER PHARMACY PER PROTOCOL XX ; Start 01/30/19 at 11:30; Status UNV Allergies: Coded Allergies: No Known Allergy (Unverified , 01/29/19) Past Surgical History Past Surgical Hx: no surgical history Social History Alcohol Use: none Smoking Status: Unknown if ever smoked Drug Use: none Exam/Review of Systems Exam Vitals Vital Signs Date Temp Pulse Resp B/P (MAP) Pulse Ox O2 O2 Flow FiO2 Time Delivery Rate 01/30/19 67 18 96/67 (77) 99 10:15 01/30/19 Mechanical 10:00 Ventilator 01/30/19 30 09:40 01/30/19 97.7 07:00 Intake and Output 01/29/19 01/29/19 01/30/19 1515:00 23:00 07:00 IntakeIntake Total 3113 ml 240 ml OutputOutput Total 110 ml 293 ml BalanceBalance 3003 ml -53 ml Results Result Diagram: 01/30/19 0446 01/30/19 0446 Results 24hrs Laboratory Tests Test 01/29/19 16:17 01/29/19 16:26 01/29/19 16:39 01/29/19 16:40 White Blood 28.8 H Count Red Blood Count 3.79 L Hemoglobin 12.4 L Hematocrit 37.2 L Mean 98.2 Corpuscular Volume Mean 32.7 Corpuscular Hemoglobin Mean 33.3 Corpuscular Hemoglobin Conc ent Red Cell 11.9 Distribution Width Platelet Count 290 Mean Platelet 8.9 Volume Immature 1.200 H Granulocytes % Neutrophils % 89.0 H Segmented 93 H Neutrophils % (Manual) Band 1 Neutrophils % (Manual) Lymphocytes % 5.9 L Lymphocytes % 6 L (Manual) Monocytes % 3.6 Eosinophils % 0.1 Basophils % 0.2 Nucleated Red 0.0 Blood Cells % Immature 0.350 H Granulocytes # Neutrophils # 25.7 H Neutrophils # 26.8 H (Manual) Band 0.2 Neutrophils # Lymphocytes 1.7 (Manual) Lymphocytes # 1.7 Monocytes # 1.1 H Eosinophils # 0.0 Basophils # 0.1 Nucleated Red 0.0 Blood Cells # Platelet NORMAL Estimate Prothrombin 13.0 Time Prothrombin 1.0 Time Ratio INR 0.97 International Normalized Rati o Activated 23.3 Partial Thrombo plast Time Sodium Level 140 Potassium Level 4.8 Chloride Level 95 L Carbon Dioxide 37 H Level Anion Gap 8 Blood Urea 26 H Nitrogen Creatinine 0.82 Est Glomerular > 60 Filtrat Rate mL/min Glucose Level 195 Calcium Level 8.5 Total Bilirubin 1.8 H Direct 0.00 Bilirubin Indirect 1.8 H Bilirubin Aspartate Amino 58 H Transf (AST/SGO T) Alanine 50 Aminotransferas e (ALT/SGPT) Alkaline 90 Phosphatase Troponin I 0.047 0.046 B-Type 1930 H Natriuretic Peptide Total Protein 6.4 Albumin 3.5 Globulin 2.90 Albumin/Globuli 1.20 n Ratio POC Venous 2.6 *H Lactate Creatine Kinase 394 H Creatine Kinase 1.7 Index Creatinine 6.57 H Kinase MB (Mass) Blood Gas Blood Specimen arterial Source Arterial Blood 01/29/2019 6:35 Date Drawn :51 PM Arterial Blood 7.237 *L pH (Temp corrected ) Arterial Blood 67.2 H pCO2 (Temp correct) Arterial Blood 432.9 H pO2 (Temp corrected ) Arterial Blood 28.0 H HCO3 Arterial Blood -0.5 Base Excess Arterial Blood 99.0 H Oxygen Saturati on Adeel Test ACCEPTAB Arterial Blood Left Radial Gas Puncture Site Arterial 0.3 Blood Carboxyhe moglobin Arterial Blood 0.3 Methemoglobin Blood Gas A-a 212.9 H O2 Differential Oxyhemoglobin 98.4 Percent Blood Gas 37.0 Temperature Blood Gas 10.0 Respiration Rate Blood Gas 10 Actual Respiration Rat e Blood Gas VENT - AC Modality FiO2 100.0 Blood Gas Tidal 800.0 Volume Blood Gas Low 5.0 PEEP Setting Blood Gas DR. POLANCO Critical Value Read Back Blood Gas José Manuel Notified Whom Blood Gas 01/29/2019 6:49 Notified Time :21 PM Test 01/29/19 18:54 01/29/19 19:30 01/30/19 01:04 01/30/19 04:46 Lactic Acid 2.4 *H 1.1 Level Blood Gas Blood arterial Specimen Source Arterial Blood 01/29/2019 7:45: Date Drawn 14 PM Arterial Blood 7.331 L pH (Temp corrected ) Arterial Blood 55.3 H pCO2 (Temp correct) Arterial Blood 113.0 H pO2 (Temp corrected ) Arterial Blood 28.6 H HCO3 Arterial Blood 1.8 Base Excess Arterial Blood 97.0 Oxygen Saturati on Adeel Test N/A Arterial Blood Right Brachial Gas Puncture Site Arterial 0.3 Blood Carboxyhe moglobin Arterial Blood 0.3 Methemoglobin Blood Gas A-a 108.6 H O2 Differential Oxyhemoglobin 96.4 Percent Blood Gas 37.0 Temperature Blood Gas 16.0 Respiration Rate Blood Gas 16 Actual Respiration Rat e Blood Gas VENT - AC Modality FiO2 40.0 Blood Gas Tidal 600.0 Volume Blood Gas Low 5.0 PEEP Setting Blood Gas MG Notified Whom Blood Gas 01/29/2019 7:52: Notified Time 10 PM Magnesium Level 2.6 H Creatine Kinase 299 H 233 H Creatine Kinase 3.3 3.6 Index Creatinine 9.72 H 8.46 H Kinase MB (Mass) Troponin I 0.050 0.054 White Blood 30.4 H Count Red Blood Count 3.19 L Hemoglobin 10.4 L Hematocrit 31.9 L Mean 100.0 Corpuscular Volume Mean 32.6 Corpuscular Hemoglobin Mean 32.6 Corpuscular Hemoglobin Conc ent Red Cell 12.2 Distribution Width Platelet Count 246 Mean Platelet 9.3 Volume Immature 1.300 H Granulocytes % Neutrophils % 96.5 H Lymphocytes % 0.8 L Monocytes % 1.3 Eosinophils % 0.0 Basophils % 0.1 Nucleated Red 0.0 Blood Cells % Immature 0.410 H Granulocytes # Neutrophils # 29.3 H Lymphocytes # 0.3 L Monocytes # 0.4 Eosinophils # 0.0 Basophils # 0.0 Nucleated Red 0.0 Blood Cells # Sodium Level 139 Potassium Level 4.8 Chloride Level 103 Carbon Dioxide 27 # Level Anion Gap 9 Blood Urea 24 H Nitrogen Creatinine 0.70 Est Glomerular > 60 Filtrat Rate mL/min Glucose Level 222 H Hemoglobin A1c 8.1 H Calcium Level 7.9 L Total Bilirubin 1.0 Direct 0.00 Bilirubin Indirect 1.0 Bilirubin Aspartate Amino 45 Transf (AST/SGO T) Alanine 74 H Aminotransferas e (ALT/SGPT) Alkaline 76 Phosphatase Total Protein 4.7 #L Albumin 2.7 L Globulin 2.00 Albumin/Globuli 1.35 n Ratio Test 01/30/19 07:00 Blood Gas Blood arterial Specimen Source Arterial Blood 01/30/2019 7:29: Date Drawn 50 AM Arterial Blood 7.373 pH (Temp corrected ) Arterial Blood 49.2 H pCO2 (Temp correct) Arterial Blood 66.3 L pO2 (Temp corrected ) Arterial Blood 28.0 H HCO3 Arterial Blood 2.1 Base Excess Arterial Blood 91.4 L Oxygen Saturati on Adeel Test ACCEPTAB Arterial Blood Left Radial Gas Puncture Site Arterial 0.3 Blood Carboxyhe moglobin Arterial Blood 0.4 Methemoglobin Blood Gas A-a 89.8 H O2 Differential Oxyhemoglobin 90.8 L Percent Blood Gas 37.0 Temperature Blood Gas 18.0 Respiration Rate Blood Gas 18 Actual Respiration Rat e Blood Gas VENT - AC Modality FiO2 30.0 Blood Gas Tidal 600.0 Volume Blood Gas Low 5.0 PEEP Setting Blood Gas TM Notified Whom Blood Gas 01/30/2019 7:55: Notified Time 32 AM Medications Medication Current Medications IV Flush (NS 3 ml) 3 ml PER PROTOCOL IV ; Start 01/29/19 at 19:30 Methylprednisolone Sodium Succinate (Solu-Medrol) 30 mg Q8 IV Last administered on 01/30/19at 05:21; Admin Dose 30 MG; Start 01/29/19 at 22:00 Furosemide (Lasix) 20 mg BID DIURETICS IV Last administered on 01/30/19at 05:21; Admin Dose 20 MG; Start 01/30/19 at 06:00 Norepinephrine 250 ml @ 1.875 mls/ hr TITRATE IV Last administered on 01/30/19at 11:09; Admin Dose 18.75 MLS/HR; Start 01/29/19 at 21:00 Fentanyl 100 ml @ 2.5 mls/hr TITRATE IV Last administered on 01/30/19at 11:10; Admin Dose 10 MLS/HR; Start 01/29/19 at 21:00 Midazolam HCl 50 ml @ 1 mls/hr TITRATE IV Last administered on 01/30/19at 08:45; Admin Dose 10 MLS/HR; Start 01/29/19 at 21:00 Ipratropium [place] (Atrovent Hfa) 4 puff Q4H RESP THERAPY INH Last administered on 01/30/19at 09:06; Admin Dose 4 PUFF; Start 01/29/19 at 21:28 Propofol 100 ml @ 2.964 mls/ hr Q12H IV Last administered on 01/30/19at 03:00; Admin Dose 2.964 MLS/HR; Start 01/30/19 at 03:00 Albuterol (Ventolin Hfa) 4 puff Q4H RESP THERAPY PRN INH SHORTNESS OF BREATH; Start 01/30/19 at 11:00 Cefepime HCl 50 ml @ 100 mls/hr Q12 IVPB ; Start 01/30/19 at 12:30 Vancomycin HCl (Vanco Iv Per Pharmacy) VANCOMYCIN PER PHARMACY PER PROTOCOL XX ; Start 01/30/19 at 11:30; Status MARIO GILMORE NP January 30, 2019 12:11
--- NOTE | 2019-01-30 12:14 | RADRPT ---
Echocardiogram Report Patient Name: PATRICIA MANZANARESPatient ID: [id number] : 1960 (58y 5m)Study Date: 01/30/2019 7:44:08 AM Gender: MAccession #: [id number] Tech: LE Location: [facility] Ref.Physician: RE MOE Height(Cm): BSA: Weight(Kg): Quality: GoodOrder Physician: RE MOE Account #: Procedures: Echocardiographic Report: Transthoracic echocardiogram with complete 2D, M-Mode, and doppler examination. Indications: Resp. Failure. Measurements: 2D/M Mode Doppler Measurement Value Normal Range Measurement Value Normal Range LVIDd 2D 5.1 [ 4.2 - 5.8 ] cm AV Mean Jhonny 1.0 [ 70.0 - 90.0 ] cm/sec LVIDs 2D 3.7 [ 2.5 - 4.0 ] cm AV Mean PG 4.0 [ 2.0 - 4.0 ] mmHg LVPWd 2D 1.1 [ 0.6 - 1.0 ] cm AV Peak Jhonny 1.2 [ 100.0 - 170.0 ] cm/sec IVSd 2D 1.1 [ 0.6 - 1.0 ] cm AV Peak PG 6.0 [ 2.0 - 9.0 ] mmHg EF 2D 51.9 [ 52.0 - 72.0 ] percent AV VTI 20.0 cm LVOT Diam 2.0 [ 2.3 - 2.9 ] cm LVOT Peak Jhonny 0.8 [ 70.0 - 110.0 ] cm/sec LVOT Peak PG 3.0 [ 2.0 - 6.0 ] mmHg MV E Peak Jhonny 0.7 [ 60.0 - 130.0 ] cm/sec MV A Peak Jhonny 0.4 [ 100.0 - 120.0 ] cm/sec MV E/A 1.9 [ 0.8 - 1.5 ] ratio MV Decel Time 204 [ 104 - 258 ] msec Lat E` Jhonny 0.1 [ 10.0 - 15.0 ] cm/sec Lateral E/E` 11.5 [ 1.0 - 2.0 ] ratio Med E` Jhonny 0.1 cm/sec MV E/A 1.9 [ 0.8 - 1.5 ] ratio TR Peak Jhonny 3.6 [ 100.0 - 280.0 ] cm/sec TR Peak PG 52.0 mmHg PV Peak Jhonny 1.1 [ 40.0 - 80.0 ] cm/sec PV Peak PG 5.0 mmHg Findings: Left Ventricle: Normal left ventricular cavity size. Normal left ventricular wall thickness. Mild left ventricular systolic dysfunction. Ejection fraction is visually estimated at 45 %. Abnormal Diastolic Function. Right Ventricle: Normal right ventricular size. Normal right ventricular systolic function. Left Atrium: The left atrium is normal in size. Right Atrium: The right atrium is normal in size. Atrial Septum: Normal atrial septum. Mitral Valve: Normal appearance of the mitral valve. Trace mitral regurgitation. Aortic Valve: Normal appearance of the aortic valve. No significant aortic stenosis or insufficiency. Tricuspid Valve: Normal appearance of the tricuspid valve. Estimated peak PA systolic pressure 67 mmHg. There is mild tricuspid regurgitation. Pulmonic Valve: Normal pulmonic valve appearance. No evidence of pulmonic regurgitation. Pericardium: Normal pericardium with no significant pericardial effusion. Aorta: Normal aortic root. IVC: Dilated IVC without respiratory collapse consistent with elevated right atrial pressure. Conclusions: Normal left ventricular cavity size. Normal left ventricular wall thickness. Mild left ventricular systolic dysfunction. Ejection fraction is visually estimated at 45 %. Abnormal Diastolic Function. Normal right ventricular size. Normal right ventricular systolic function. The left atrium is normal in size. The right atrium is normal in size. Normal appearance of the tricuspid valve. Estimated peak PA systolic pressure 67 mmHg. There is mild tricuspid regurgitation. No significant valvular stenosis or regurgitation seen of remaining visualized valves. Normal pericardium with no significant pericardial effusion. Electronically Signed By: Jake Lees 2019-01-30 12:13:32 PDT
[2019-01-30] MEDS: CEFEPIME 2GM/50 ML (PMX) 50 ML IVPB SCH ×2 (13:38→21:27)
--- NOTE | 2019-01-30 13:56 | CONS ---
DATE OF ADMISSION: 01/29/2019 DATE OF CONSULTATION: 01/30/2019 TYPE OF CONSULTATION: Pulmonary. REASON FOR CONSULTATION: Ventilator management. Thank you, Dr. Douglas, for this consultation. HISTORY OF PRESENT ILLNESS: This is a 58-year-old gentleman with a history of COPD, CHF, came in wit h increasing respiratory distress and wheezing. Initially placed on bilevel ventilation. Subsequent ly, developed large right pneumothorax requiring chest tube placement. The patient was emergently in tubated also for respiratory distress. Few further details are available. PAST MEDICAL HISTORY: As above. MEDICATIONS: Per chart. ALLERGIES: NONE. SOCIAL HISTORY: Nonsmoker, no alcohol, no history of drug use. FAMILY HISTORY: Noncontributory. SYSTEMS REVIEW: A 12-point review of systems currently unable to perform. PHYSICAL EXAMINATION: GENERAL: Moderately obese gentleman, intubated on mechanical ventilation, appears comfortable at res t. VITAL SIGNS: Currently afebrile, pulse 67, blood pressure 96/67, O2 saturation 99%, FIO2 30%, orally intubated. NECK: Supple. No JVD or lymphadenopathy. CARDIAC: S1, S2, no added sounds or murmurs. CHEST: Diminished air entry bilaterally. ABDOMEN: Soft, nontender. No guarding or rebound. EXTREMITIES: No cyanosis, clubbing or edema. NEUROLOGIC: Generalized weakness. LABORATORY DATA: White count 30.4, hemoglobin 10.4. Chemistry: BUN 24, creatinine 324, creatinine 0.7. Chest x-ray shows resolved right pneumothorax. ABG: pH 7.37, pCO2 of 49, pO2 of 66. IMPRESSION AND PLAN: 1. Chronic obstructive pulmonary disease exacerbation. 2. Right pneumothorax, likely secondary to positive pressure ventilation. 3. Possible underlying bullous lung disease. 4. Morbid obesity. 5. Incomplete data. The patient will require: 1. Steroids. 2. Bronchodilators. 3. Antibiotics. 4. CT chest, noncontrast, to evaluate lung parenchyma. 5. Vasopressors as needed. 6. Deep vein thrombosis and gastrointestinal prophylaxis. 7. Cardiothoracic surgery evaluation for chest tube management. Dictated By: YESENIA ALCANTAR MD SV/NTS Conf#: [id number] DID#: [id number] CC: RE DOUGLAS MD;*EndCC*
[2019-01-30] MEDS ORDERED: DEXTROSE 50% 50 ML SYRINGE IV PRN ×2 (15:00)
[2019-01-30] MEDS ORDERED: GLUCAGON 1 MG INJ IM PRN (15:00)
[2019-01-30] MEDS ORDERED: GLUCOSE GEL 15 GRAM TUBE PO PRN ×2 (15:00)
[2019-01-30] MEDS ORDERED: GLUCOSE GEL 15 GRAM TUBE BUCCAL PRN (15:00)
[2019-01-30] MEDS: VANCOMYCIN HCL 1.25 GM in SOD CHLORIDE 0.9% 250 ML IVPB SCH (16:03)
[2019-01-30] MEDS: INSULIN ASPART [NOVOLOG] 3 ML PEN SC SCH ×2 (18:01→21:36)
[2019-01-30] MEDS ORDERED: INSULIN GLARGINE [LANTus] (100 UNITS/ML) SYG SC SCH (20:00)
--- NOTE | 2019-01-30 20:05 | CONS ---
Assessment/Plan Assessment/Plan Assessment/Plan (Daily) Pneumothorax after laminectomy and intubation Still has been placed Thorax has been resolved Tube with minimal drainage no air leak Continue chest tube suction repeat x-ray in the morning Consultation Date/Type/Reason Admit Date/Time Date of Consultation: January 30, 2019 Type of Consult Thoracic surgery Reason for Consultation Pneumothorax Date/Time of Note DATE: 01/30/19 TIME: 20:04 Hx of Present Illness 58-year-old male who underwent a laminectomy was discharged home subsequently was admitted with a large pneumothorax chest tube has been placed pneumothorax has been resolved the chest tube has minimal drainage no air leak ENT: no complaints Respiratory: no complaints Cardiovascular: no complaints Gastrointestinal: no complaints Musculoskeletal: no complaints Skin: no complaints Neurologic: no complaints Past Medical History Medical History: no pertinent history Home Meds Reported Medications Valsartan* (Diovan*) 160 Mg Tablet, 160 MG PO BID, TAB 01/29/19 Trazodone Hcl* (Trazodone Hcl*) 50 Mg Tablet, 50 MG PO QHS, #30 TAB 01/29/19 Tiotropium [place]* (Spiriva*) 18 Mcg Cap.w.dev, 1 CAP INHALATION DAILY, #30 CAP 01/29/19 Spironolactone* (Aldactone*) 25 Mg Tablet, 25 MG PO DAILY, #30 TAB 01/29/19 Sildenafil Citrate* (Viagra*) 100 Mg Tablet, 100 MG PO TID PRN for FOR PULMONAREY HTN, TAB 01/29/19 Prednisone* (Prednisone*) 10 Mg Tab, 10 MG PO DIRECTED, TAB 2TAB DAILY-FOR 2 DAYS 1TAB DAILY-FOR 2 DAYS 01/29/19 Omeprazole* (Omeprazole*) 40 Mg Capsule.dr, 40 MG PO DAILY, #30 CAP 01/29/19 Metoprolol Succinate* (Toprol XL*) 100 Mg Tab.sr.24h, 100 MG PO DAILY, #30 TAB 01/29/19 Metformin Hcl* (Metformin Hcl*) 500 Mg Tablet, 500 MG PO WITH BREAKFAST DINNE, #60 TAB 01/29/19 Lurasidone Hcl (LATUDA) 40 Mg Tablet, 40 MG PO DAILY, #30 TAB 01/29/19 Loperamide Hcl* (Loperamide Hcl*) 2 Mg Cap, 2 MG PO Q6H, CAP 01/29/19 Iron Sucrose (Venofer) 200 Mg/10 Ml Vial, 10 ML IV Q7D, VIAL 01/29/19 Imatinib Mesylate* (Gleevec*) 100 Mg Tablet, 200 MG PO BID, TAB 01/29/19 Guaifenesin* (Refenesen*) 400 Mg Tablet, 400 MG PO BID PRN for COUGH, TAB 01/29/19 Furosemide* (Furosemide*) 20 Mg Tablet, 20 MG PO BID, #30 TAB 01/29/19 Dabigatran Etexilate Mesylate* (Pradaxa*) 150 Mg Capsule, 150 MG PO Q12H, CAP 01/29/19 Budesonide-Formoterol Fumarate* (Symbicort*) 160-4.5 Hfa.aer.ad, 2 PUFF INHALATION BID, #1 EACH 01/29/19 Azithromycin* (Azithromycin*) 250 Mg Tablet, 250 MG PO DAILY, #4 TAB THREE TIMES A WEEK FOR COPD 01/29/19 Atorvastatin Calcium* (Atorvastatin Calcium*) 20 Mg Tablet, 20 MG PO QHS, #30 TAB 01/29/19 Albuterol Sulfate (Proair Respiclick) 90 Mcg Aer.pow.ba, 2 PUFF INHALATION Q4 PRN for SHORTNESS OF BREATH, #1 BOTTLE 01/29/19 Medications Current Medications IV Flush (NS 3 ml) 3 ml PER PROTOCOL IV ; Start 01/29/19 at 19:30 Methylprednisolone Sodium Succinate (Solu-Medrol) 30 mg Q8 IV Last administered on 01/30/19at 13:10; Admin Dose 30 MG; Start 01/29/19 at 22:00 Furosemide (Lasix) 20 mg BID DIURETICS IV Last administered on 01/30/19at 18:03; Admin Dose 20 MG; Start 01/30/19 at 06:00 Norepinephrine 250 ml @ 1.875 mls/ hr TITRATE IV Last administered on 01/30/19at 11:09; Admin Dose 18.75 MLS/HR; Start 01/29/19 at 21:00 Fentanyl 100 ml @ 2.5 mls/hr TITRATE IV Last administered on 01/30/19at 19:56; Admin Dose 10 MLS/HR; Start 01/29/19 at 21:00 Midazolam HCl 50 ml @ 1 mls/hr TITRATE IV Last administered on 01/30/19at 19:53; Admin Dose 10 MLS/HR; Start 01/29/19 at 21:00 Ipratropium [place] (Atrovent Hfa) 4 puff Q4H RESP THERAPY INH Last administered on 01/30/19at 09:06; Admin Dose 4 PUFF; Start 01/29/19 at 21:28 Propofol 100 ml @ 2.964 mls/ hr Q12H IV Last administered on 01/30/19at 13:06; Admin Dose 5.928 MLS/HR; Start 01/30/19 at 03:00 Albuterol (Ventolin Hfa) 4 puff Q4H RESP THERAPY PRN INH SHORTNESS OF BREATH; Start 01/30/19 at 11:00 Cefepime HCl 50 ml @ 100 mls/hr Q12 IVPB Last administered on 01/30/19at 13:38; Admin Dose 100 MLS/HR; Start 01/30/19 at 12:30 Vancomycin HCl (Vanco Iv Per Pharmacy) VANCOMYCIN PER PHARMACY PER PROTOCOL XX ; Start 01/30/19 at 11:30 Vancomycin HCl 1.25 gm/Sodium Chloride 250 ml @ 83.333 mls/ hr Q12H IVPB Last administered on 01/30/19at 16:03; Admin Dose 83.333 MLS/HR; Start 01/30/19 at 14:00 Atorvastatin Calcium (Lipitor) 20 mg QHS PO ; Start 01/30/19 at 21:00 Insulin Aspart (Novolog Insulin Pen) NOVOLOG *MILD* ALGORITHM WITH MEALS BEDTIME SC Last administered on 01/30/19at 18:01; Admin Dose 3 UNIT; Start 01/30/19 at 17:35 Diagnostic Test (Pha) (Accu-Chek) 1 ea 02 XX ; Start 01/31/19 at 02:00 Insulin Glargine (Lantus) 15 units DAILY@2000 SC ; Start 01/30/19 at 20:00 Miscellaneous Information 1 ea NOTE XX ; Start 01/30/19 at 15:00 Glucose (Glutose) 15 gm Q15M PRN PO DECREASED GLUCOSE; Start 01/30/19 at 15:00 Glucose (Glutose) 22.5 gm Q15M PRN PO DECREASED GLUCOSE; Start 01/30/19 at 15:00 Dextrose (D50w Syringe) 25 ml Q15M PRN IV DECREASED GLUCOSE; Start 01/30/19 at 15:00 Dextrose (D50w Syringe) 50 ml Q15M PRN IV DECREASED GLUCOSE; Start 01/30/19 at 15:00 Glucagon (Glucagen) 1 mg Q15M PRN IM DECREASED GLUCOSE; Start 01/30/19 at 15:00 Glucose (Glutose) 15 gm Q15M PRN BUCCAL DECREASED GLUCOSE; Start 01/30/19 at 15:00 Allergies: Coded Allergies: No Known Allergy (Unverified , 01/29/19) Past Surgical History Past Surgical Hx: no surgical history Social History Alcohol Use: none Smoking Status: Unknown if ever smoked Drug Use: none Exam/Review of Systems Exam Vitals Vital Signs Date Temp Pulse Resp B/P (MAP) Pulse Ox O2 O2 Flow FiO2 Time Delivery Rate 01/30/19 86 18 100 30 18:22 01/30/19 96/57 (70) 16:45 01/30/19 98.9 Mechanical 16:00 Ventilator Intake and Output 01/29/19 01/29/19 01/30/19 1515:00 23:00 07:00 IntakeIntake Total 3113 ml 285.5 ml OutputOutput Total 110 ml 393 ml BalanceBalance 3003 ml -107.5 ml Head: normocephalic, atraumatic Eyes: nl conjunctiva, EOMI, nl lids, nl sclera, PERRL ENMT: nl external ears & nose, nl lips & teeth, nl nasal mucosa & septum Neck: supple, non-tender Respiratory: clear to auscultation, normal air movement Cardiovascular: regular rate and rhythm, nl pulses Gastrointestinal: soft, nl liver, spleen, non-tender Musculoskeletal: nl extremities to inspection, nl gait and stance Extremities: normal pulses Results Result Diagram: 01/30/19 0446 01/30/19 0446 Results 24hrs Laboratory Tests Test 01/30/19 01:04 01/30/19 04:46 01/30/19 07:00 01/30/19 12:54 Lactic Acid 1.1 Level Magnesium Level 2.6 H Creatine Kinase 299 H 233 H Creatine Kinase 3.3 3.6 Index Creatinine 9.72 H 8.46 H Kinase MB (Mass) Troponin I 0.050 0.054 White Blood 30.4 H Count Red Blood Count 3.19 L Hemoglobin 10.4 L Hematocrit 31.9 L Mean Corpuscular 100.0 Volume Mean Corpuscular 32.6 Hemoglobin Mean Corpuscular 32.6 Hemoglobin Bonnie nt Red Cell 12.2 Distribution Width Platelet Count 246 Mean Platelet 9.3 Volume Immature 1.300 H Granulocytes % Neutrophils % 96.5 H Lymphocytes % 0.8 L Monocytes % 1.3 Eosinophils % 0.0 Basophils % 0.1 Nucleated Red 0.0 Blood Cells % Immature 0.410 H Granulocytes # Neutrophils # 29.3 H Lymphocytes # 0.3 L Monocytes # 0.4 Eosinophils # 0.0 Basophils # 0.0 Nucleated Red 0.0 Blood Cells # Sodium Level 139 Potassium Level 4.8 Chloride Level 103 Carbon Dioxide 27 # Level Anion Gap 9 Blood Urea 24 H Nitrogen Creatinine 0.70 Est Glomerular > 60 Filtrat Rate mL/min Glucose Level 222 H Hemoglobin A1c 8.1 H Calcium Level 7.9 L Total Bilirubin 1.0 Direct Bilirubin 0.00 Indirect 1.0 Bilirubin Aspartate Amino 45 Transf (AST/SGOT ) Alanine 74 H Aminotransferase (ALT/SGPT) Alkaline 76 Phosphatase Total Protein 4.7 #L Albumin 2.7 L Globulin 2.00 Albumin/Globulin 1.35 Ratio Blood Gas Blood arterial Specimen Source Arterial Blood 01/30/2019 7:29: Date Drawn 50 AM Arterial Blood 7.373 pH (Temp corrected) Arterial Blood 49.2 H pCO2 (Temp correct) Arterial Blood 66.3 L pO2 (Temp corrected) Arterial Blood 28.0 H HCO3 Arterial Blood 2.1 Base Excess Arterial Blood 91.4 L Oxygen Saturatio n Adeel Test ACCEPTAB Arterial Blood Left Radial Gas Puncture Site Arterial 0.3 Blood Carboxyhem oglobin Arterial Blood 0.4 Methemoglobin Blood Gas A-a O2 89.8 H Differential Oxyhemoglobin 90.8 L Percent Blood Gas 37.0 Temperature Blood Gas 18.0 Respiration Rate Blood Gas Actual 18 Respiration Rate Blood Gas VENT - AC Modality FiO2 30.0 Blood Gas Tidal 600.0 Volume Blood Gas Low 5.0 PEEP Setting Blood Gas TM Notified Whom Blood Gas 01/30/2019 7:55: Notified Time 32 AM Urine Color YELLOW Urine Clarity SLIGHTLY CLOUDY A Urine pH 5.0 Urine Specific 1.017 [place] Urine Ketones 1+ H Urine Nitrite NEGATIVE Urine Bilirubin NEGATIVE Urine NEGATIVE Urobilinogen Urine Leukocyte NEGATIVE Esterase Urine 0 Microscopic RBC Urine 0 Microscopic WBC Urine Mucus FEW A Urine Hemoglobin NEGATIVE Urine Glucose NEGATIVE Urine Total NEGATIVE Protein Test 01/30/19 17:58 Bedside Glucose 246 H Medications Medication Current Medications IV Flush (NS 3 ml) 3 ml PER PROTOCOL IV ; Start 01/29/19 at 19:30 Methylprednisolone Sodium Succinate (Solu-Medrol) 30 mg Q8 IV Last administered on 01/30/19 13:10; Admin Dose 30 MG; Start 01/29/19 at 22:00 Furosemide (Lasix) 20 mg BID DIURETICS IV Last administered on 01/30/19 18:03; Admin Dose 20 MG; Start 01/30/19 at 06:00 Norepinephrine 250 ml @ 1.875 mls/ hr TITRATE IV Last administered on 9at 11:09; Admin Dose 18.75 MLS/HR; Start 01/29/19 at 21:00 Fentanyl 100 ml @ 2.5 mls/hr TITRATE IV Last administered on 01/30/19 19:56; Admin Dose 10 MLS/HR; Start 01/29/19 at 21:00 Midazolam HCl 50 ml @ 1 mls/hr TITRATE IV Last administered on 01/30/19 19:53; Admin Dose 10 MLS/HR; Start 01/29/19 at 21:00 Ipratropium [place] (Atrovent Hfa) 4 puff Q4H RESP THERAPY INH Last administered on 01/30/19 09:06; Admin Dose 4 PUFF; Start 01/29/19 at 21:28 Propofol 100 ml @ 2.964 mls/ hr Q12H IV Last administered on 01/30/19 13:06; Admin Dose 5.928 MLS/HR; Start 01/30/19 at 03:00 Albuterol (Ventolin Hfa) 4 puff Q4H RESP THERAPY PRN INH SHORTNESS OF BREATH; Start 01/30/19 at 11:00 Cefepime HCl 50 ml @ 100 mls/hr Q12 IVPB Last administered on 01/30/19 13:38; Admin Dose 100 MLS/HR; Start 01/30/19 at 12:30 Vancomycin HCl (Vanco Iv Per Pharmacy) VANCOMYCIN PER PHARMACY PER PROTOCOL XX ; Start 01/30/19 at 11:30 Vancomycin HCl 1.25 gm/Sodium Chloride 250 ml @ 83.333 mls/ hr Q12H IVPB Last administered on 5/20/19at 16:03; Admin Dose 83.333 MLS/HR; Start 01/30/19 at 14:00 Atorvastatin Calcium (Lipitor) 20 mg QHS PO ; Start 01/30/19 at 21:00 Insulin Aspart (Novolog Insulin Pen) NOVOLOG *MILD* ALGORITHM WITH MEALS BEDTIME SC Last administered on 01/30/19at 18:01; Admin Dose 3 UNIT; Start 01/30/19 at 17:35 Diagnostic Test (Pha) (Accu-Chek) 1 ea 02 XX ; Start 01/31/19 at 02:00 Insulin Glargine (Lantus) 15 units DAILY@2000 SC ; Start 01/30/19 at 20:00 Miscellaneous Information 1 ea NOTE XX ; Start 01/30/19 at 15:00 Glucose (Glutose) 15 gm Q15M PRN PO DECREASED GLUCOSE; Start 01/30/19 at 15:00 Glucose (Glutose) 22.5 gm Q15M PRN PO DECREASED GLUCOSE; Start 01/30/19 at 15:00 Dextrose (D50w Syringe) 25 ml Q15M PRN IV DECREASED GLUCOSE; Start 01/30/19 at 15:00 Dextrose (D50w Syringe) 50 ml Q15M PRN IV DECREASED GLUCOSE; Start 01/30/19 at 15:00 Glucagon (Glucagen) 1 mg Q15M PRN IM DECREASED GLUCOSE; Start 01/30/19 at 15:00 Glucose (Glutose) 15 gm Q15M PRN BUCCAL DECREASED GLUCOSE; Start 01/30/19 at 15:00 GAYLA BURLESON MD January 30, 2019 20:05
[2019-01-30] MEDS ORDERED: ADENOSINE 3 MG/ML SYRINGE IV ONE (20:29)
[2019-01-30] MEDS ORDERED: AMIODARONE 150MG/D5W BOLUS 100 ML ONE (20:31)
[2019-01-30] MEDS ORDERED: AMIODARONE 900 MG in DEXTROSE 5% 482 ML IV SCH (21:00)
[2019-01-30] MEDS ORDERED: AMIODARONE 150MG/D5W BOLUS 100 ML IV ONE (21:00)
[2019-01-30] MEDS: ATORVASTATIN 20 MG TAB PO SCH (21:25)
[2019-01-30] MEDS: PHENYLephrine 20MG IN 250 ML 250 ML IV SCH (21:36)
[2019-01-31] VITALS (102 sets, daily range): BP systolic 72–153; BP diastolic 45–137; PULSE 51–112; RESP 12–27
[2019-01-31] MEDS: PROPOFOL 100 ML IV SCH ×3 (00:33→17:59)
--- NOTE | 2019-01-31 00:45 | CONS ---
DATE OF ADMISSION: 01/29/2019 DATE OF CONSULTATION: 01/30/2019 TYPE OF CONSULTATION: Infectious disease. REASON FOR CONSULTATION: Antibiotic management. HISTORY OF PRESENT ILLNESS: Jim Mcdowell is a 58-year-old male who was brought to the emergency r o with shortness of breath. Field EKG showed a STEMI. The patient presented with respiratory fail ure. He has known history of CHF and COPD with shortness of breath over the past 12 to 24 hours requ iring positive pressure ventilation. His blood pressure is greater than 200. The patient states thi s feels more like a COPD exacerbation and CHF, but notes lower extremity pitting edema. Denies chest pain or pressure. His past surgeries include neck surgery. He has a history of COPD and CHF. He n ever smoked. On admission, his white count was 28.8, H and H 12.4 and 37.2, platelet count 290,000. BUN and creatinine 26/0.82 and glucose of 195. He had 93% neutrophils, 1% band for a left shift wit h a white count of 28.8. A soft tissue showed right laminectomies C3 through C6 with internal fixati on plate and screws, nondisplaced fracture of C3-C6 left lamina, small right pneumothorax with chest tube in place, bilateral subsegmental atelectasis involving the upper lobes and postsurgical edema an d scar located in the midline of C2 through C6. So the patient had a right pneumothorax and had a ch est tube in place. He had an endotracheal tube and ET tubes in place as well. The paranasal sinuses showed left maxillary sinus retention cysts or polyps. He has bilateral lens implant surgeries. Hi s chest x-ray today shows consolidation of the right medial lung base, not significantly changed when compared to prior exam, mild prominence of interstitial markings which may reflect mild underlying i nterstitial edema or chronic lung changes. ET tube was present. Enteric tube is also present as wel l as a right chest tube. Blood cultures are negative. The patient was started on vancomycin and cef epime. White count today was 30.4. Urine was negative for leukocyte esterase. The patient was seen by Dr. Alvarado, who noted he developed large right pneumothorax requiring chest tube placement. He was emergently intubated also for respiratory distress. PHYSICAL EXAMINATION: GENERAL: The patient is a moderately obese male, intubated with an NG tube in place and a right ches t tube. SKIN: Without generalized rash. HEENT: Within normal limits. NECK: Supple. LYMPH NODES: None palpable. CHEST: Decreased breath sounds at the bases. HEART: Without murmur or gallop. ABDOMEN: Soft, nontender, without organosplenomegaly or masses. EXTREMITIES: Without cyanosis, clubbing, or edema. RECTAL AND GENITAL: Deferred. NEUROLOGIC: No focal neurological abnormality. As noted, his white count was up to 30.4. IMPRESSION AND PLAN: The patient will require steroids, bronchodilators, antibiotics. He was also s een by Dr. Mac, who noted that he developed a large pneumothorax for which a chest tube had to be placed. We will continue him on his current therapy. A procalcitonin level was considered if cul tures are negative. I will dictate my findings to the hospitalist, to Dr. Alvarado and Dr. Mac. Dictated By: JUDY CUNNINGHAM MD, JD/[place] Conf#: [id number] DID#: [id number] CC: RE MOE MD;*EndCC*
[2019-01-31] MEDS: IPRATROPIUM (HFA) 12.9 GM INHALER INH SCH ×6 (01:12→21:37)
[2019-01-31] MEDS: ACCU-CHEK XX SCH (01:33)
[2019-01-31] MEDS: VANCOMYCIN HCL 1.25 GM in SOD CHLORIDE 0.9% 250 ML IVPB SCH ×2 (01:46→14:58)
[2019-01-31] MEDS: PHENYLephrine 20MG IN 250 ML 250 ML IV SCH ×4 (01:49→19:33)
[2019-01-31] MEDS: FUROSEMIDE 20 MG INJ IV SCH ×2 (05:09→18:01)
[2019-01-31] MEDS: METHYLPREDNISOLONE 40 MG INJ IV SCH ×3 (05:11→21:54)
[2019-01-31] MEDS: INSULIN ASPART [NOVOLOG] 3 ML PEN SC SCH ×4 (08:07→20:31)
--- NOTE | 2019-01-31 08:54 | CONS ---
Consult Date/Type/Reason Admit Date/Time January 29, 2019 at 18:27 Initial Consult Date 01/30/19 Type of Consult Pulmonary Requesting Provider: DUSTY VILLASENOR Date/Time of Note DATE: 01/31/19 TIME: 08:52 Subjective Remains intubated sedated on mechanical ventilation. Episodes of ventricular tachycardia noted overnight continues propofol and Sebastien-Synephrine. FiO2 decreased to 40%. Tube feeding as tolerated. Objective Vital Signs Date Temp Pulse Resp B/P (MAP) Pulse Ox O2 O2 Flow FiO2 Time Delivery Rate 01/31/19 72 18 100 40 08:28 01/31/19 124/55 05:45 (78) 01/31/19 98.4 04:00 01/30/19 Mechanical 16:00 Ventilator Intake and Output 01/30/19 01/30/19 01/31/19 1515:00 23:00 07:00 IntakeIntake Total 444.0 ml 1849.4 ml 585.3 ml OutputOutput Total 800 ml 755 ml 700 ml BalanceBalance -356.0 ml 1094.4 ml -114.7 ml Exam GENERAL: Obese elderly gentleman orally intubated on mechanical ventilation appears comfortable at rest VITAL SIGNS: per chart NECK: Supple. No JVD or lymphadenopathy. CARDIAC EXAM: S1, S2. No added sounds or murmurs. CHEST: Diminished air entry bilaterally ABDOMEN: Soft, nontender. No guarding or rebound. Obese soft nontender EXTREMITIES: No cyanosis, clubbing or edema. NEUROLOGIC: Generalized weakness. No focal deficits. Vent Setting Ventilator Support Mode: AC Fraction of Inspired Oxygen pe: 40 Positive End Expiratory Pressu: 5.0 Results/Medications Result Diagram: 01/31/19 0500 01/31/19 0500 Results 24 hrs Laboratory Tests Test 01/30/19 12:54 01/30/19 17:58 01/30/19 20:40 01/30/19 21:17 Urine Color YELLOW Urine Clarity SLIGHTLY CLOUDY A Urine pH 5.0 Urine Specific 1.017 [place] Urine Ketones 1+ H Urine Nitrite NEGATIVE Urine Bilirubin NEGATIVE Urine NEGATIVE Urobilinogen Urine Leukocyte NEGATIVE Esterase Urine 0 Microscopic RBC Urine 0 Microscopic WBC Urine Mucus FEW A Urine Hemoglobin NEGATIVE Urine Glucose NEGATIVE Urine Total NEGATIVE Protein Bedside Glucose 246 H 296 H Sodium Level 140 Potassium Level 4.8 Chloride Level 105 Carbon Dioxide 31 Level Anion Gap 4 L Blood Urea 28 H Nitrogen Creatinine 0.88 Est Glomerular > 60 Filtrat Rate mL/min Glucose Level 259 H Calcium Level 8.1 L Phosphorus Level 3.0 Magnesium Level 2.5 Creatinine 5.63 H Kinase MB (Mass) Troponin I 0.066 Test 01/31/19 05:00 01/31/19 07:00 01/31/19 08:03 White Blood 20.2 #H Count Red Blood Count 2.64 L Hemoglobin 8.7 L Hematocrit 26.4 L Mean Corpuscular 100.0 Volume Mean Corpuscular 33.0 Hemoglobin Mean Corpuscular 33.0 Hemoglobin Bonnie nt Red Cell 12.5 Distribution Width Platelet Count 211 Mean Platelet 9.3 Volume Immature 1.300 H Granulocytes % Neutrophils % 93.0 H Lymphocytes % 1.7 L Monocytes % 3.9 Eosinophils % 0.0 Basophils % 0.1 Nucleated Red 0.0 Blood Cells % Immature 0.270 H Granulocytes # Neutrophils # 18.8 H Lymphocytes # 0.3 L Monocytes # 0.8 Eosinophils # 0.0 Basophils # 0.0 Nucleated Red 0.0 Blood Cells # Sodium Level 141 Potassium Level 4.4 Chloride Level 105 Carbon Dioxide 33 H Level Anion Gap 3 L Blood Urea 31 H Nitrogen Creatinine 0.93 Est Glomerular > 60 Filtrat Rate mL/min Glucose Level 235 H Calcium Level 8.2 L Phosphorus Level 2.7 Magnesium Level 2.6 H Total Bilirubin 0.6 Direct Bilirubin 0.00 Indirect 0.6 Bilirubin Aspartate Amino 21 # Transf (AST/SGOT ) Alanine 51 Aminotransferase (ALT/SGPT) Alkaline 64 Phosphatase Creatine Kinase 75 # Total Protein 4.8 L Albumin 2.6 L Globulin 2.20 Albumin/Globulin 1.18 Ratio Blood Gas Blood arterial Specimen Source Arterial Blood 01/31/2019 7:25: Date Drawn 18 AM Arterial Blood 7.404 pH (Temp corrected) Arterial Blood 48.6 H pCO2 (Temp correct) Arterial Blood 230.9 H pO2 (Temp corrected) Arterial Blood 29.7 H HCO3 Arterial Blood 4.3 H Base Excess Arterial Blood 98.8 H Oxygen Saturatio n Adeel Test ACCEPTAB Arterial Blood Right Radial Gas Puncture Site Arterial 0.2 Blood Carboxyhem oglobin Arterial Blood 0.4 Methemoglobin Blood Gas A-a O2 143.4 H Differential Oxyhemoglobin 98.2 Percent Blood Gas 37.0 Temperature Blood Gas 18.0 Respiration Rate Blood Gas Actual 18 Respiration Rate Blood Gas VENT - AC Modality FiO2 60.0 Blood Gas Tidal 600.0 Volume Blood Gas Low 5.0 PEEP Setting Blood Gas TM Notified Whom Blood Gas 01/31/2019 7:45: Notified Time 56 AM Bedside Glucose 254 H Medications Current Medications IV Flush (NS 3 ml) 3 ml PER PROTOCOL IV ; Start 01/29/19 at 19:30 Methylprednisolone Sodium Succinate (Solu-Medrol) 30 mg Q8 IV Last administered on 01/31/19 05:11; Admin Dose 30 MG; Start 01/29/19 at 22:00 Furosemide (Lasix) 20 mg BID DIURETICS IV Last administered on 01/31/19 05:09; Admin Dose 20 MG; Start 01/30/19 at 06:00 Norepinephrine 250 ml @ 1.875 mls/ hr TITRATE IV Last administered on 11:09; Admin Dose 18.75 MLS/HR; Start 01/29/19 at 21:00 Fentanyl 100 ml @ 2.5 mls/hr TITRATE IV Last administered on 01/30/19 19:56; Admin Dose 10 MLS/HR; Start 01/29/19 at 21:00 Midazolam HCl 50 ml @ 1 mls/hr TITRATE IV Last administered on 01/30/19 19:53; Admin Dose 10 MLS/HR; Start 01/29/19 at 21:00 Ipratropium [place] (Atrovent Hfa) 4 puff Q4H RESP THERAPY INH Last administered on 01/31/19 08:39; Admin Dose 4 PUFF; Start 01/29/19 at 21:28 Propofol 100 ml @ 2.964 mls/ hr Q12H IV Last administered on 01/31/19 00:33; Admin Dose 8.892 MLS/HR; Start 01/30/19 at 03:00 Albuterol (Ventolin Hfa) 4 puff Q4H RESP THERAPY PRN INH SHORTNESS OF BREATH; Start 01/30/19 at 11:00 Cefepime HCl 50 ml @ 100 mls/hr Q12 IVPB Last administered on 01/30/19 21:27; Admin Dose 100 MLS/HR; Start 01/30/19 at 12:30 Vancomycin HCl (Vanco Iv Per Pharmacy) VANCOMYCIN PER PHARMACY PER PROTOCOL XX ; Start 01/30/19 at 11:30 Vancomycin HCl 1.25 gm/Sodium Chloride 250 ml @ 83.333 mls/ hr Q12H IVPB Last administered on 01/31/19at 01:46; Admin Dose 83.333 MLS/HR; Start 01/30/19 at 14:00 Atorvastatin Calcium (Lipitor) 20 mg QHS PO Last administered on 01/30/19at 21:25; Admin Dose 20 MG; Start 01/30/19 at 21:00 Insulin Aspart (Novolog Insulin Pen) NOVOLOG *MILD* ALGORITHM WITH MEALS BEDTIME SC Last administered on 01/31/19at 08:07; Admin Dose 3 UNIT; Start 01/30/19 at 17:35 Diagnostic Test (Pha) (Accu-Chek) 1 ea 02 XX ; Start 01/31/19 at 02:00 Insulin Glargine (Lantus) 15 units DAILY@2000 SC Last administered on 01/30/19at 21:36; Admin Dose 15 UNITS; Start 01/30/19 at 20:00 Miscellaneous Information 1 ea NOTE XX ; Start 01/30/19 at 15:00 Glucose (Glutose) 15 gm Q15M PRN PO DECREASED GLUCOSE; Start 01/30/19 at 15:00 Glucose (Glutose) 22.5 gm Q15M PRN PO DECREASED GLUCOSE; Start 01/30/19 at 15:00 Dextrose (D50w Syringe) 25 ml Q15M PRN IV DECREASED GLUCOSE; Start 01/30/19 at 15:00 Dextrose (D50w Syringe) 50 ml Q15M PRN IV DECREASED GLUCOSE; Start 01/30/19 at 15:00 Glucagon (Glucagen) 1 mg Q15M PRN IM DECREASED GLUCOSE; Start 01/30/19 at 15:00 Glucose (Glutose) 15 gm Q15M PRN BUCCAL DECREASED GLUCOSE; Start 01/30/19 at 15:00 Amiodarone HCl 900 mg/Dextrose 500 ml @ 0 mls/hr Q0M IV Last administered on 01/30/19at 20:59; Admin Dose 33.3 MLS/HR; Start 01/30/19 at 21:00 Phenylephrine HCl 250 ml @ 75 mls/hr TITRATE IV Last administered on 01/31/19at 01:49; Admin Dose 52.5 MLS/HR; Start 01/30/19 at 21:30 Assessment/Plan Hospital Course (Demo Recall) IMPRESSION 1. Chronic obstructive pulmonary disease exacerbation. 2. Right pneumothorax, likely secondary to positive pressure ventilation. Still with persistent air leak. Small pneumothorax on chest x-ray this morning. 3. Possible underlying bullous lung disease. 4. Morbid obesity. 5. Septic shock source unclear at present. Plan 1. Steroids. 2. Bronchodilators. 3. Antibiotics. 4. CT chest, noncontrast, to evaluate lung parenchyma. 5. Vasopressors as needed. 6. Deep vein thrombosis and gastrointestinal prophylaxis. 7. Cardiothoracic surgery evaluation for chest tube management. Chest tube will need to be repositioned as it is almost out. Will require continued chest tube in situ until patient is off mechanical ventilation and hopefully resolution of bronchopleural fistula. Critical care time 40 minutes. YESENIA ALCANTAR MD, [facility] January 31, 2019 08:54
[2019-01-31] MEDS: CEFEPIME 2GM/50 ML (PMX) 50 ML IVPB SCH ×2 (09:17→20:26)
--- NOTE | 2019-01-31 11:59 | PN ---
Date/Time of Note Date/Time of Note DATE: 01/31/19 TIME: 11:41 Assessment/Plan VTE Prophylaxis Risk score (from Ns)>0 risk: 5 SCD applied (from Nsg): Yes Pharmacological prophylaxis: other Lines/Catheters IV Catheter Type (from Nrsg): Central Line Central line still needed: Yes Urinary Cath still in place: Yes Reason Cath still needed: urinary retention Assessment/Plan Hospital Course S: Patient still intubated, had V. tach last night and started on amiodarone drip, now appears to be rate controlled. Seen by ID team yesterday, off levo fed yesterday and now on Sebastien-Synephrine. O: VS- see below PE: Intubated, sedated Lungs clear anteriorly R sided chest tube in place RRR Soft nt nd Ext with mild edema, warm CT neck January 29, 2019: IMPRESSION: 1. Right laminectomies of C3 - C6 with internal fixation plate and screws. 2. Nondisplaced fractures of the C3 - C6 left lamina. 3. Small right pneumothorax with chest tube in place. 4. Bilateral subsegmental atelectasis involving the upper lobes . 5. Postsurgical edema and scar located in the midline of C2 - C6. A/P: 58 yo male with likely COPD and CHF though exact history unknown who presented with respiratory distress and hypercapnic respiratory failure. Was on BIPAP when decompensated and found to have pneumothorax, intubated and with R chest tube. # Acute hypercapnic respiratory failure- likely from COPD per reports and respiratory acidosis - slowly improving -For now continue as needed Bronchodilators, steroids, abx -Monitor white blood cell, continue mechanical ventilation per pulmonary # Pneumothorax: Found on chest x-ray 2 days ago, although chest x-ray this morning now shows small new minimal right pneumothorax, less than 1%. chest tube placed 2 days ago in the ER. -Monitor, follow-up further recommendations from CTS team for chest tube management -Also follow up pulmonary recommendations #Leukocytosis: No fevers. Patient is on steroids, white blood cell count improved today down to 20,000 -Continue broad-spectrum antibiotics, follow-up final results of UA and follow-up blood culture results -Follow-up further recommendations from infectious disease consult # C-spine sx -occurred at outside hospital recently within the last one 1 week apparently -Again, awaiting medical records from [facility] for further in vestigate this since the patient with stress there, per family, and discharged from there 4 days ago after being treated there for C neck pathology and apparently had surgery there at that time on the cervical spine. -Consider PT eval Dispo: Further management pending clinical course Critical care time spent in patient care today equals 45 minutes. Result Diagram: 01/31/19 0500 01/31/19 0500 Results 24hrs Laboratory Tests Test 01/30/19 12:54 01/30/19 17:58 01/30/19 20:40 01/30/19 21:17 Urine Color YELLOW Urine Clarity SLIGHTLY CLOUDY A Urine pH 5.0 Urine Specific 1.017 [place] Urine Ketones 1+ H Urine Nitrite NEGATIVE Urine Bilirubin NEGATIVE Urine NEGATIVE Urobilinogen Urine Leukocyte NEGATIVE Esterase Urine 0 Microscopic RBC Urine 0 Microscopic WBC Urine Mucus FEW A Urine Hemoglobin NEGATIVE Urine Glucose NEGATIVE Urine Total NEGATIVE Protein Bedside Glucose 246 H 296 H Sodium Level 140 Potassium Level 4.8 Chloride Level 105 Carbon Dioxide 31 Level Anion Gap 4 L Blood Urea 28 H Nitrogen Creatinine 0.88 Est Glomerular > 60 Filtrat Rate mL/min Glucose Level 259 H Calcium Level 8.1 L Phosphorus Level 3.0 Magnesium Level 2.5 Creatinine 5.63 H Kinase MB (Mass) Troponin I 0.066 Test 01/31/19 05:00 01/31/19 07:00 01/31/19 08:03 White Blood 20.2 #H Count Red Blood Count 2.64 L Hemoglobin 8.7 L Hematocrit 26.4 L Mean Corpuscular 100.0 Volume Mean Corpuscular 33.0 Hemoglobin Mean Corpuscular 33.0 Hemoglobin Bonnie nt Red Cell 12.5 Distribution Width Platelet Count 211 Mean Platelet 9.3 Volume Immature 1.300 H Granulocytes % Neutrophils % 93.0 H Lymphocytes % 1.7 L Monocytes % 3.9 Eosinophils % 0.0 Basophils % 0.1 Nucleated Red 0.0 Blood Cells % Immature 0.270 H Granulocytes # Neutrophils # 18.8 H Lymphocytes # 0.3 L Monocytes # 0.8 Eosinophils # 0.0 Basophils # 0.0 Nucleated Red 0.0 Blood Cells # Sodium Level 141 Potassium Level 4.4 Chloride Level 105 Carbon Dioxide 33 H Level Anion Gap 3 L Blood Urea 31 H Nitrogen Creatinine 0.93 Est Glomerular > 60 Filtrat Rate mL/min Glucose Level 235 H Calcium Level 8.2 L Phosphorus Level 2.7 Magnesium Level 2.6 H Total Bilirubin 0.6 Direct Bilirubin 0.00 Indirect 0.6 Bilirubin Aspartate Amino 21 # Transf (AST/SGOT ) Alanine 51 Aminotransferase (ALT/SGPT) Alkaline 64 Phosphatase Creatine Kinase 75 # Total Protein 4.8 L Albumin 2.6 L Globulin 2.20 Albumin/Globulin 1.18 Ratio Blood Gas Blood arterial Specimen Source Arterial Blood 01/31/2019 7:25: Date Drawn 18 AM Arterial Blood 7.404 pH (Temp corrected) Arterial Blood 48.6 H pCO2 (Temp correct) Arterial Blood 230.9 H pO2 (Temp corrected) Arterial Blood 29.7 H HCO3 Arterial Blood 4.3 H Base Excess Arterial Blood 98.8 H Oxygen Saturatio n Adeel Test ACCEPTAB Arterial Blood Right Radial Gas Puncture Site Arterial 0.2 Blood Carboxyhem oglobin Arterial Blood 0.4 Methemoglobin Blood Gas A-a O2 143.4 H Differential Oxyhemoglobin 98.2 Percent Blood Gas 37.0 Temperature Blood Gas 18.0 Respiration Rate Blood Gas Actual 18 Respiration Rate Blood Gas VENT - AC Modality FiO2 60.0 Blood Gas Tidal 600.0 Volume Blood Gas Low 5.0 PEEP Setting Blood Gas TM Notified Whom Blood Gas 01/31/2019 7:45: Notified Time 56 AM Bedside Glucose 254 H Exam/Review of Systems Exam Vitals Vital Signs Date Temp Pulse Resp B/P (MAP) Pulse Ox O2 O2 Flow FiO2 Time Delivery Rate 01/31/19 64 18 127/75 100 Mechanical 11:15 (92) Ventilator 01/31/19 40 08:28 01/31/19 97.9 08:00 Intake and Output 01/30/19 01/30/19 01/31/19 1515:00 23:00 07:00 IntakeIntake Total 444.0 ml 1849.4 ml 625.8 ml OutputOutput Total 800 ml 755 ml 700 ml BalanceBalance -356.0 ml 1094.4 ml -74.2 ml Results Results 24hrs Laboratory Tests Test 01/30/19 12:54 01/30/19 17:58 01/30/19 20:40 01/30/19 21:17 Urine Color YELLOW Urine Clarity SLIGHTLY CLOUDY A Urine pH 5.0 Urine Specific 1.017 [place] Urine Ketones 1+ H Urine Nitrite NEGATIVE Urine Bilirubin NEGATIVE Urine NEGATIVE Urobilinogen Urine Leukocyte NEGATIVE Esterase Urine 0 Microscopic RBC Urine 0 Microscopic WBC Urine Mucus FEW A Urine Hemoglobin NEGATIVE Urine Glucose NEGATIVE Urine Total NEGATIVE Protein Bedside Glucose 246 H 296 H Sodium Level 140 Potassium Level 4.8 Chloride Level 105 Carbon Dioxide 31 Level Anion Gap 4 L Blood Urea 28 H Nitrogen Creatinine 0.88 Est Glomerular > 60 Filtrat Rate mL/min Glucose Level 259 H Calcium Level 8.1 L Phosphorus Level 3.0 Magnesium Level 2.5 Creatinine 5.63 H Kinase MB (Mass) Troponin I 0.066 Test 01/31/19 05:00 01/31/19 07:00 01/31/19 08:03 White Blood 20.2 #H Count Red Blood Count 2.64 L Hemoglobin 8.7 L Hematocrit 26.4 L Mean Corpuscular 100.0 Volume Mean Corpuscular 33.0 Hemoglobin Mean Corpuscular 33.0 Hemoglobin Bonnie nt Red Cell 12.5 Distribution Width Platelet Count 211 Mean Platelet 9.3 Volume Immature 1.300 H Granulocytes % Neutrophils % 93.0 H Lymphocytes % 1.7 L Monocytes % 3.9 Eosinophils % 0.0 Basophils % 0.1 Nucleated Red 0.0 Blood Cells % Immature 0.270 H Granulocytes # Neutrophils # 18.8 H Lymphocytes # 0.3 L Monocytes # 0.8 Eosinophils # 0.0 Basophils # 0.0 Nucleated Red 0.0 Blood Cells # Sodium Level 141 Potassium Level 4.4 Chloride Level 105 Carbon Dioxide 33 H Level Anion Gap 3 L Blood Urea 31 H Nitrogen Creatinine 0.93 Est Glomerular > 60 Filtrat Rate mL/min Glucose Level 235 H Calcium Level 8.2 L Phosphorus Level 2.7 Magnesium Level 2.6 H Total Bilirubin 0.6 Direct Bilirubin 0.00 Indirect 0.6 Bilirubin Aspartate Amino 21 # Transf (AST/SGOT ) Alanine 51 Aminotransferase (ALT/SGPT) Alkaline 64 Phosphatase Creatine Kinase 75 # Total Protein 4.8 L Albumin 2.6 L Globulin 2.20 Albumin/Globulin 1.18 Ratio Blood Gas Blood arterial Specimen Source Arterial Blood 01/31/2019 7:25: Date Drawn 18 AM Arterial Blood 7.404 pH (Temp corrected) Arterial Blood 48.6 H pCO2 (Temp correct) Arterial Blood 230.9 H pO2 (Temp corrected) Arterial Blood 29.7 H HCO3 Arterial Blood 4.3 H Base Excess Arterial Blood 98.8 H Oxygen Saturatio n Adeel Test ACCEPTAB Arterial Blood Right Radial Gas Puncture Site Arterial 0.2 Blood Carboxyhem oglobin Arterial Blood 0.4 Methemoglobin Blood Gas A-a O2 143.4 H Differential Oxyhemoglobin 98.2 Percent Blood Gas 37.0 Temperature Blood Gas 18.0 Respiration Rate Blood Gas Actual 18 Respiration Rate Blood Gas VENT - AC Modality FiO2 60.0 Blood Gas Tidal 600.0 Volume Blood Gas Low 5.0 PEEP Setting Blood Gas TM Notified Whom Blood Gas 01/31/2019 7:45: Notified Time 56 AM Bedside Glucose 254 H Medications Medication Current Medications IV Flush (NS 3 ml) 3 ml PER PROTOCOL IV ; Start 01/29/19 at 19:30 Methylprednisolone Sodium Succinate (Solu-Medrol) 30 mg Q8 IV Last administered on 01/31/19 05:11; Admin Dose 30 MG; Start 01/29/19 at 22:00 Furosemide (Lasix) 20 mg BID DIURETICS IV Last administered on 01/31/19 05:09; Admin Dose 20 MG; Start 01/30/19 at 06:00 Norepinephrine 250 ml @ 1.875 mls/ hr TITRATE IV Last administered on 01/30/19 11:09; Admin Dose 18.75 MLS/HR; Start 01/29/19 at 21:00 Fentanyl 100 ml @ 2.5 mls/hr TITRATE IV Last administered on 01/30/19 19:56; Admin Dose 10 MLS/HR; Start 01/29/19 at 21:00 Midazolam HCl 50 ml @ 1 mls/hr TITRATE IV Last administered on 01/30/19 19:53; Admin Dose 10 MLS/HR; Start 01/29/19 at 21:00 Ipratropium [place] (Atrovent Hfa) 4 puff Q4H RESP THERAPY INH Last administered on 01/31/19 08:39; Admin Dose 4 PUFF; Start 01/29/19 at 21:28 Propofol 100 ml @ 2.964 mls/ hr Q12H IV Last administered on 01/31/19 10:19; Admin Dose 5.928 MLS/HR; Start 01/30/19 at 03:00 Albuterol (Ventolin Hfa) 4 puff Q4H RESP THERAPY PRN INH SHORTNESS OF BREATH; Start 01/30/19 at 11:00 Cefepime HCl 50 ml @ 100 mls/hr Q12 IVPB Last administered on 01/31/19at 09:17; Admin Dose 100 MLS/HR; Start 01/30/19 at 12:30 Vancomycin HCl (Vanco Iv Per Pharmacy) VANCOMYCIN PER PHARMACY PER PROTOCOL XX ; Start 01/30/19 at 11:30 Vancomycin HCl 1.25 gm/Sodium Chloride 250 ml @ 83.333 mls/ hr Q12H IVPB Last administered on 01/31/19at 01:46; Admin Dose 83.333 MLS/HR; Start 01/30/19 at 14:00 Atorvastatin Calcium (Lipitor) 20 mg QHS PO Last administered on 01/30/19at 21:25; Admin Dose 20 MG; Start 01/30/19 at 21:00 Insulin Aspart (Novolog Insulin Pen) NOVOLOG *MILD* ALGORITHM WITH MEALS BEDTIME SC Last administered on 01/31/19at 11:28; Admin Dose 4 UNIT; Start 01/30/19 at 17:35 Diagnostic Test (Pha) (Accu-Chek) 1 ea 02 XX ; Start 01/31/19 at 02:00 Insulin Glargine (Lantus) 15 units DAILY@2000 SC Last administered on 01/30/19at 21:36; Admin Dose 15 UNITS; Start 01/30/19 at 20:00 Miscellaneous Information 1 ea NOTE XX ; Start 01/30/19 at 15:00 Glucose (Glutose) 15 gm Q15M PRN PO DECREASED GLUCOSE; Start 01/30/19 at 15:00 Glucose (Glutose) 22.5 gm Q15M PRN PO DECREASED GLUCOSE; Start 01/30/19 at 15:00 Dextrose (D50w Syringe) 25 ml Q15M PRN IV DECREASED GLUCOSE; Start 01/30/19 at 15:00 Dextrose (D50w Syringe) 50 ml Q15M PRN IV DECREASED GLUCOSE; Start 01/30/19 at 15:00 Glucagon (Glucagen) 1 mg Q15M PRN IM DECREASED GLUCOSE; Start 01/30/19 at 15:00 Glucose (Glutose) 15 gm Q15M PRN BUCCAL DECREASED GLUCOSE; Start 01/30/19 at 15:00 Amiodarone HCl 900 mg/Dextrose 500 ml @ 0 mls/hr Q0M IV Last administered on 01/30/19at 20:59; Admin Dose 33.3 MLS/HR; Start 01/30/19 at 21:00 Phenylephrine HCl 250 ml @ 75 mls/hr TITRATE IV Last administered on 01/31/19at 10:18; Admin Dose 160 MLS/HR; Start 01/30/19 at 21:30 DUSTY VILLASENOR January 31, 2019 11:51
--- NOTE | 2019-01-31 13:43 | CONS ---
Assessment/Plan Assessment/Plan Hospital Course (Demo Recall) No acute changes overnight patient remains intubated sedated on Sebastien-Synephrine drip he is afebrile WBC today 20.2 platelets 211 neutrophils 93 BUN 31 creatinine 0.93 Blood and urine cultures remain negative Chest x-ray revealed unchanged bibasilar atelectasis Indwelling: Endotracheal tube NG tube Ferrera right chest tube Antimicrobials: Vancomycin, cefepime Physical examination: Obese well-developed middle-aged man who is intubated sedated in no distress. Head atraumatic normocephalic sclera nonicteric. Neck is supple chest rise symmetrical breath sounds diminished bases. Heart: S1-S2. Abdomen soft bowel sounds hypoactive. Extremities with bilateral trace edema Assessment: 1. Septic shock questionable etiology 2. Acute hypoxemic respiratory failure/COPD exacerbation 3. Right pneumothorax 4. History of recent C-spine surgery 5. Obesity 6. Persistent leukocytosis, patient is on IV steroids Abx: Vanco Cefepime Plan: Patient remains unchanged, so far all cultures negative, will check procalcitonin level, continue on current antibiotics, await for sputum culture Consultation Date/Type/Reason Admit Date/Time January 29, 2019 at 18:27 Initial Consult Date 01/30/19 Type of Consult id Requesting Provider: DUSTY VILLASENOR Date/Time of Note DATE: 01/31/19 TIME: 13:41 Exam/Review of Systems Exam Vitals Vital Signs Date Temp Pulse Resp B/P (MAP) Pulse Ox O2 O2 Flow FiO2 Time Delivery Rate 01/31/19 70 18 100 40 13:35 01/31/19 127/75 Mechanical 11:15 (92) Ventilator 01/31/19 97.9 08:00 Intake and Output 01/30/19 01/30/19 01/31/19 1515:00 23:00 07:00 IntakeIntake Total 444.0 ml 1849.4 ml 670.8 ml OutputOutput Total 800 ml 755 ml 780 ml BalanceBalance -356.0 ml 1094.4 ml -109.2 ml Results Result Diagram: 01/31/19 0500 01/31/19 0500 Results 24hrs Laboratory Tests Test 01/30/19 17:58 01/30/19 20:40 01/30/19 21:17 01/31/19 05:00 Bedside Glucose 246 H 296 H Sodium Level 140 141 Potassium Level 4.8 4.4 Chloride Level 105 105 Carbon Dioxide 31 33 H Level Anion Gap 4 L 3 L Blood Urea 28 H 31 H Nitrogen Creatinine 0.88 0.93 Est Glomerular > 60 > 60 Filtrat Rate mL/min Glucose Level 259 H 235 H Calcium Level 8.1 L 8.2 L Phosphorus Level 3.0 2.7 Magnesium Level 2.5 2.6 H Creatinine Kinase 5.63 H MB (Mass) Troponin I 0.066 White Blood Count 20.2 #H Red Blood Count 2.64 L Hemoglobin 8.7 L Hematocrit 26.4 L Mean Corpuscular 100.0 Volume Mean Corpuscular 33.0 Hemoglobin Mean Corpuscular 33.0 Hemoglobin Concen t Red Cell 12.5 Distribution Width Platelet Count 211 Mean Platelet 9.3 Volume Immature 1.300 H Granulocytes % Neutrophils % 93.0 H Lymphocytes % 1.7 L Monocytes % 3.9 Eosinophils % 0.0 Basophils % 0.1 Nucleated Red 0.0 Blood Cells % Immature 0.270 H Granulocytes # Neutrophils # 18.8 H Lymphocytes # 0.3 L Monocytes # 0.8 Eosinophils # 0.0 Basophils # 0.0 Nucleated Red 0.0 Blood Cells # Total Bilirubin 0.6 Direct Bilirubin 0.00 Indirect 0.6 Bilirubin Aspartate Amino 21 # Transf (AST/SGOT) Alanine 51 Aminotransferase (ALT/SGPT) Alkaline 64 Phosphatase Creatine Kinase 75 # Total Protein 4.8 L Albumin 2.6 L Globulin 2.20 Albumin/Globulin 1.18 Ratio Test 01/31/19 07:00 01/31/19 08:03 01/31/19 11:25 Blood Gas Blood arterial Specimen Source Arterial Blood 01/31/2019 7:25:1 Date Drawn 8 AM Arterial Blood pH 7.404 (Temp corrected) Arterial Blood 48.6 H pCO2 (Temp correct) Arterial Blood 230.9 H pO2 (Temp corrected) Arterial Blood 29.7 H HCO3 Arterial Blood 4.3 H Base Excess Arterial Blood 98.8 H Oxygen Saturation Adeel Test ACCEPTAB Arterial Blood Right Radial Gas Puncture Site Arterial 0.2 Blood Carboxyhemo globin Arterial Blood 0.4 Methemoglobin Blood Gas A-a O2 143.4 H Differential Oxyhemoglobin 98.2 Percent Blood Gas 37.0 Temperature Blood Gas 18.0 Respiration Rate Blood Gas Actual 18 Respiration Rate Blood Gas VENT - AC Modality FiO2 60.0 Blood Gas Tidal 600.0 Volume Blood Gas Low 5.0 PEEP Setting Blood Gas TM Notified Whom Blood Gas 01/31/2019 7:45:5 Notified Time 6 AM Bedside Glucose 254 H 281 H Medications Medication Current Medications IV Flush (NS 3 ml) 3 ml PER PROTOCOL IV ; Start 01/29/19 at 19:30 Methylprednisolone Sodium Succinate (Solu-Medrol) 30 mg Q8 IV Last administered on 01/31/19 05:11; Admin Dose 30 MG; Start 01/29/19 at 22:00 Furosemide (Lasix) 20 mg BID DIURETICS IV Last administered on 01/31/19 05:09; Admin Dose 20 MG; Start 01/30/19 at 06:00 Norepinephrine 250 ml @ 1.875 mls/ hr TITRATE IV Last administered on 01/30/19 11:09; Admin Dose 18.75 MLS/HR; Start 01/29/19 at 21:00 Fentanyl 100 ml @ 2.5 mls/hr TITRATE IV Last administered on 01/30/19 19:56; Admin Dose 10 MLS/HR; Start 01/29/19 at 21:00 Midazolam HCl 50 ml @ 1 mls/hr TITRATE IV Last administered on 01/30/19 19:53; Admin Dose 10 MLS/HR; Start 01/29/19 at 21:00 Ipratropium [place] (Atrovent Hfa) 4 puff Q4H RESP THERAPY INH Last administer ed on 01/31/19 08:39; Admin Dose 4 PUFF; Start 01/29/19 at 21:28 Propofol 100 ml @ 2.964 mls/ hr Q12H IV Last administered on 01/31/19 10:19; Admin Dose 5.928 MLS/HR; Start 01/30/19 at 03:00 Albuterol (Ventolin Hfa) 4 puff Q4H RESP THERAPY PRN INH SHORTNESS OF BREATH; Start 01/30/19 at 11:00 Cefepime HCl 50 ml @ 100 mls/hr Q12 IVPB Last administered on 01/31/19 09:17; Admin Dose 100 MLS/HR; Start 01/30/19 at 12:30 Vancomycin HCl (Vanco Iv Per Pharmacy) VANCOMYCIN PER PHARMACY PER PROTOCOL XX ; Start 01/30/19 at 11:30 Vancomycin HCl 1.25 gm/Sodium Chloride 250 ml @ 83.333 mls/ hr Q12H IVPB Last administered on 01/31/19at 01:46; Admin Dose 83.333 MLS/HR; Start 01/30/19 at 14:00 Atorvastatin Calcium (Lipitor) 20 mg QHS PO Last administered on 01/30/19at 21:25; Admin Dose 20 MG; Start 01/30/19 at 21:00 Diagnostic Test (Pha) (Accu-Chek) 1 ea 02 XX ; Start 01/31/19 at 02:00 Miscellaneous Information 1 ea NOTE XX ; Start 01/30/19 at 15:00 Glucose (Glutose) 15 gm Q15M PRN PO DECREASED GLUCOSE; Start 01/30/19 at 15:00 Glucose (Glutose) 22.5 gm Q15M PRN PO DECREASED GLUCOSE; Start 01/30/19 at 15:00 Dextrose (D50w Syringe) 25 ml Q15M PRN IV DECREASED GLUCOSE; Start 01/30/19 at 15:00 Dextrose (D50w Syringe) 50 ml Q15M PRN IV DECREASED GLUCOSE; Start 01/30/19 at 15:00 Glucagon (Glucagen) 1 mg Q15M PRN IM DECREASED GLUCOSE; Start 01/30/19 at 15:00 Glucose (Glutose) 15 gm Q15M PRN BUCCAL DECREASED GLUCOSE; Start 01/30/19 at 15:00 Phenylephrine HCl 250 ml @ 75 mls/hr TITRATE IV Last administered on 01/31/19at 10:18; Admin Dose 160 MLS/HR; Start 01/30/19 at 21:30 Insulin Glargine (Lantus) 20 units DAILY@2000 SC ; Start 01/31/19 at 20:00 Insulin Aspart (Novolog Insulin Pen) NOVOLOG *MODERATE* ALGORITHM WITH MEALS BEDTIME SC ; Start 01/31/19 at 17:35 MARIO ALMANZA NP January 31, 2019 13:43
--- NOTE | 2019-01-31 18:32 | PN ---
Date/Time of Note Date/Time of Note DATE: 01/31/19 TIME: 18:31 Assessment/Plan Lines/Catheters IV Catheter Type (from Nrsg): Central Line Ferrera in Place (from Nrsg): Yes Assessment/Plan Assessment/Plan Pneumothorax Post chest tube placement Pneumothorax resolved mostly Will clamp the chest tube Chest x-ray in the morning Plan to remove the chest tube if no significant pneumothorax noted Subjective 24 Hr Interval Summary Constitutional: no complaints, improved, ambulates, BM, flatus, urine output Pain Control: well controlled Exam/Review of Systems Vital Signs Vitals Vital Signs Date Temp Pulse Resp B/P (MAP) Pulse Ox O2 O2 Flow FiO2 Time Delivery Rate 01/31/19 75 18 100 40 17:20 01/31/19 115/74 16:00 (88) 01/31/19 Mechanical 12:45 Ventilator 01/31/19 97.6 12:00 Intake and Output 01/30/19 01/30/19 01/31/19 1515:00 23:00 07:00 IntakeIntake Total 444.0 ml 1849.4 ml 670.8 ml OutputOutput Total 800 ml 755 ml 780 ml BalanceBalance -356.0 ml 1094.4 ml -109.2 ml Exam Eyes: nl conjunctiva, EOMI, nl lids, nl sclera ENMT: nl external ears & nose, nl lips & teeth, nl nasal mucosa & septum, mucosa pink and moist Neck: supple, non-tender Respiratory: clear to auscultation, normal air movement Cardiovascular: regular rate and rhythm, nl pulses Musculoskeletal: nl extremities to inspection, nl gait and stance Results Result Diagram: 01/31/19 0500 01/31/19 0500 GAYLA BURLESON MD January 31, 2019 18:32
[2019-01-31] MEDS: INSULIN GLARGINE [LANTus] (100 UNITS/ML) SYG SC SCH (20:31)
[2019-01-31] MEDS: ATORVASTATIN 20 MG TAB PO SCH (20:33)
[2019-02-01] VITALS (98 sets, daily range): BP systolic 70–168; BP diastolic 45–133; PULSE 49–131; RESP 14–32
[2019-02-01] MEDS: PHENYLephrine 20MG IN 250 ML 250 ML IV SCH ×3 (00:39→19:45)
[2019-02-01] MEDS: IPRATROPIUM (HFA) 12.9 GM INHALER INH SCH ×6 (01:16→22:00)
[2019-02-01] MEDS: VANCOMYCIN HCL 1.25 GM in SOD CHLORIDE 0.9% 250 ML IVPB SCH ×2 (01:56→15:13)
[2019-02-01] MEDS: PROPOFOL 100 ML IV SCH ×3 (02:00→22:45)
[2019-02-01] MEDS: ACCU-CHEK XX SCH (02:00)
[2019-02-01] MEDS: METHYLPREDNISOLONE 40 MG INJ IV SCH ×3 (05:58→22:40)
[2019-02-01] MEDS: FUROSEMIDE 20 MG INJ IV SCH ×2 (06:00→18:18)
[2019-02-01] MEDS: INSULIN ASPART [NOVOLOG] 3 ML PEN SC SCH ×4 (08:26→20:27)
[2019-02-01] MEDS: CEFEPIME 2GM/50 ML (PMX) 50 ML IVPB SCH ×2 (09:28→20:11)
--- NOTE | 2019-02-01 09:54 | PN ---
Date/Time of Note Date/Time of Note DATE: 02/01/19 TIME: 09:51 Assessment/Plan VTE Prophylaxis Risk score (from Ns)>0 risk: 7 SCD applied (from Ns): Yes Pharmacological prophylaxis: other Lines/Catheters IV Catheter Type (from Nrs): Central Line Central line still needed: Yes Urinary Cath still in place: Yes Reason Cath still needed: urinary retention Assessment/Plan Hospital Course S: Patient still intubated, chest x-ray this morning still showed presence of pneumothorax, so even the chest tube was clamped yesterday for trial, he has been unclamped now. O: VS- see below PE: Intubated, sedated Lungs clear anteriorly R sided chest tube in place RRR Soft nt nd Ext with mild edema, warm CT neck January 29, 2019: IMPRESSION: 1. Right laminectomies of C3 - C6 with internal fixation plate and screws. 2. Nondisplaced fractures of the C3 - C6 left lamina. 3. Small right pneumothorax with chest tube in place. 4. Bilateral subsegmental atelectasis involving the upper lobes . 5. Postsurgical edema and scar located in the midline of C2 - C6. A/P: 58 yo male with likely COPD and CHF though exact history unknown who presented with respiratory distress and hypercapnic respiratory failure. Was on BIPAP when decompensated and found to have pneumothorax, intubated and with R chest tube on admission. # Acute hypercapnic respiratory failure- likely from COPD per reports and respiratory acidosis - slowly improving -For now continue as needed Bronchodilators, steroids, abx -Monitor white blood cell, continue mechanical ventilation per pulmonary -for possible weaning trial later today # Pneumothorax: Found on chest x-ray 3 days ago, again chest x-ray this morning shows persistent apical right pneumothorax, 22%. Chest tube placed 3 days ago in the ER. -Monitor, follow-up further recommendations from CTS team for chest tube management -Also follow up pulmonary recommendations #Leukocytosis: Still present but trending down, today WBC 16; no fevers. Patient is on steroids as well. -Continue broad-spectrum antibiotics follow-up final culture results -Follow-up further recommendations from infectious disease consult # C-spine sx -occurred at outside hospital recently within the last one 1 week a pparently -Again, awaiting medical records from [facility] for further investigate this since the patient was discharged from there 5 days ago after being treated there for C neck pathology and apparently had surgery there at that time on the cervical spine. -Monitor,vPT eval Dispo: Further management pending clinical course Critical care time spent in patient care today equals 40 minutes. Result Diagram: 02/01/19 0500 02/01/19 0445 Results 24hrs Laboratory Tests Test 01/31/19 11:25 01/31/19 14:07 01/31/19 17:43 01/31/19 20:12 Bedside Glucose 281 H 232 H 204 Procalcitonin 0.63 H Test 02/01/19 00:56 02/01/19 04:45 02/01/19 05:00 02/01/19 08:24 Vancomycin Level 17.6 Trough Sodium Level 144 Potassium Level 4.4 Chloride Level 106 Carbon Dioxide Level 34 H Anion Gap 4 L Blood Urea Nitrogen 34 H Creatinine 0.78 Est Glomerular > 60 Filtrat Rate mL/min Glucose Level 208 Calcium Level 8.2 L Phosphorus Level 2.5 Magnesium Level 2.5 Total Bilirubin 0.7 Direct Bilirubin 0.00 Indirect Bilirubin 0.7 Aspartate Amino 20 Transf (AST/SGOT) Alanine 47 Aminotransferase (AL T/SGPT) Alkaline Phosphatase 64 Total Protein 4.9 L Albumin 2.5 L Globulin 2.40 Albumin/Globulin 1.04 Ratio White Blood Count 16.7 H Red Blood Count 2.55 L Hemoglobin 8.4 L Hematocrit 25.6 L Mean Corpuscular 100.4 Volume Mean Corpuscular 32.9 Hemoglobin Mean Corpuscular 32.8 Hemoglobin Concent Red Cell 12.7 Distribution Width Platelet Count 216 Mean Platelet Volume 9.3 Immature 1.100 H Granulocytes % Neutrophils % 95.3 H Lymphocytes % 1.6 L Monocytes % 1.9 Eosinophils % 0.0 Basophils % 0.1 Nucleated Red Blood 0.0 Cells % Immature 0.190 H Granulocytes # Neutrophils # 15.9 H Lymphocytes # 0.3 L Monocytes # 0.3 Eosinophils # 0.0 Basophils # 0.0 Nucleated Red Blood 0.0 Cells # Bedside Glucose 233 H Exam/Review of Systems Exam Vitals Vital Signs Date Temp Pulse Resp B/P (MAP) Pulse Ox O2 O2 Flow FiO2 Time Delivery Rate 02/01/19 79 19 96 35 09:37 02/01/19 168/133 06:15 (145) 02/01/19 Mechanical 06:00 Ventilator 02/01/19 99.2 04:00 Intake and Output 01/31/19 01/31/19 02/01/19 1515:00 23:00 07:00 IntakeIntake Total 1217.2 ml 1294.150 ml 803.804 ml OutputOutput Total 420 ml 1040 ml 1050 ml BalanceBalance 797.2 ml 254.150 ml -246.196 ml Results Results 24hrs Laboratory Tests Test 01/31/19 11:25 01/31/19 14:07 01/31/19 17:43 01/31/19 20:12 Bedside Glucose 281 H 232 H 204 Procalcitonin 0.63 H Test 02/01/19 00:56 02/01/19 04:45 02/01/19 05:00 02/01/19 08:24 Vancomycin Level 17.6 Trough Sodium Level 144 Potassium Level 4.4 Chloride Level 106 Carbon Dioxide Level 34 H Anion Gap 4 L Blood Urea Nitrogen 34 H Creatinine 0.78 Est Glomerular > 60 Filtrat Rate mL/min Glucose Level 208 Calcium Level 8.2 L Phosphorus Level 2.5 Magnesium Level 2.5 Total Bilirubin 0.7 Direct Bilirubin 0.00 Indirect Bilirubin 0.7 Aspartate Amino 20 Transf (AST/SGOT) Alanine 47 Aminotransferase (AL T/SGPT) Alkaline Phosphatase 64 Total Protein 4.9 L Albumin 2.5 L Globulin 2.40 Albumin/Globulin 1.04 Ratio White Blood Count 16.7 H Red Blood Count 2.55 L Hemoglobin 8.4 L Hematocrit 25.6 L Mean Corpuscular 100.4 Volume Mean Corpuscular 32.9 Hemoglobin Mean Corpuscular 32.8 Hemoglobin Concent Red Cell 12.7 Distribution Width Platelet Count 216 Mean Platelet Volume 9.3 Immature 1.100 H Granulocytes % Neutrophils % 95.3 H Lymphocytes % 1.6 L Monocytes % 1.9 Eosinophils % 0.0 Basophils % 0.1 Nucleated Red Blood 0.0 Cells % Immature 0.190 H Granulocytes # Neutrophils # 15.9 H Lymphocytes # 0.3 L Monocytes # 0.3 Eosinophils # 0.0 Basophils # 0.0 Nucleated Red Blood 0.0 Cells # Bedside Glucose 233 H Medications Medication Current Medications IV Flush (NS 3 ml) 3 ml PER PROTOCOL IV ; Start 01/29/19 at 19:30 Methylprednisolone Sodium Succinate (Solu-Medrol) 30 mg Q8 IV Last administered on 02/01/19 05:58; Admin Dose 30 MG; Start 01/29/19 at 22:00 Furosemide (Lasix) 20 mg BID DIURETICS IV Last administered on 02/01/19 06:00; Admin Dose 20 MG; Start 01/30/19 at 06:00 Norepinephrine 250 ml @ 1.875 mls/ hr TITRATE IV Last administered on 11:09; Admin Dose 18.75 MLS/HR; Start 01/29/19 at 21:00 Fentanyl 100 ml @ 2.5 mls/hr TITRATE IV Last administered on 01/30/19 19:56; Admin Dose 10 MLS/HR; Start 01/29/19 at 21:00 Midazolam HCl 50 ml @ 1 mls/hr TITRATE IV Last administered on 01/30/19 19:53; Admin Dose 10 MLS/HR; Start 01/29/19 at 21:00 Ipratropium [place] (Atrovent Hfa) 4 puff Q4H RESP THERAPY INH Last administered on 02/01/19 08:03; Admin Dose 4 PUFF; Start 01/29/19 at 21:28 Propofol 100 ml @ 2.964 mls/ hr Q12H IV Last administered on 02/01/19 02:00; Admin Dose 11.856 MLS/HR; Start 01/30/19 at 03:00 Albuterol (Ventolin Hfa) 4 puff Q4H RESP THERAPY PRN INH SHORTNESS OF BREATH; Start 01/30/19 at 11:00 Cefepime HCl 50 ml @ 100 mls/hr Q12 IVPB Last administered on 02/01/19 09:28; Admin Dose 100 MLS/HR; Start 01/30/19 at 12:30 Vancomycin HCl (Vanco Iv Per Pharmacy) VANCOMYCIN PER PHARMACY PER PROTOCOL XX ; Start 01/30/19 at 11:30 Vancomycin HCl 1.25 gm/Sodium Chloride 250 ml @ 83.333 mls/ hr Q12H IVPB Last administered on 02/01/19 01:56; Admin Dose 83.333 MLS/HR; Start 01/30/19 at 14:00 Atorvastatin Calcium (Lipitor) 20 mg QHS PO Last administered on 01/31/19 20:33; Admin Dose 20 MG; Start 01/30/19 at 21:00 Diagnostic Test (Pha) (Accu-Chek) 1 ea 02 XX ; Start 01/31/19 at 02:00 Miscellaneous Information 1 ea NOTE XX ; Start 01/30/19 at 15:00 Glucose (Glutose) 15 gm Q15M PRN PO DECREASED GLUCOSE; Start 01/30/19 at 15:00 Glucose (Glutose) 22.5 gm Q15M PRN PO DECREASED GLUCOSE; Start 01/30/19 at 15:00 Dextrose (D50w Syringe) 25 ml Q15M PRN IV DECREASED GLUCOSE; Start 01/30/19 at 15:00 Dextrose (D50w Syringe) 50 ml Q15M PRN IV DECREASED GLUCOSE; Start 01/30/19 at 15:00 Glucagon (Glucagen) 1 mg Q15M PRN IM DECREASED GLUCOSE; Start 01/30/19 at 15:00 Glucose (Glutose) 15 gm Q15M PRN BUCCAL DECREASED GLUCOSE; Start 01/30/19 at 15:00 Phenylephrine HCl 250 ml @ 75 mls/hr TITRATE IV Last administered on 02/01/19at 05:29; Admin Dose 30 MLS/HR; Start 01/30/19 at 21:30 Insulin Glargine (Lantus) 20 units DAILY@2000 SC Last administered on 01/31/19at 20:31; Admin Dose 20 UNITS; Start 01/31/19 at 20:00 Insulin Aspart (Novolog Insulin Pen) NOVOLOG *MODERATE* ALGORITHM WITH MEALS BEDTIME SC Last administered on 02/01/19at 08:26; Admin Dose 6 UNIT; Start 01/31/19 at 17:35 Dexmedetomidine HCl 200 mcg/ Sodium Chloride 50 ml @ 4.94 mls/hr TITRATE IV ; Start 02/01/19 at 09:30 DUSTY VILLASENOR February 01, 2019 09:54
[2019-02-01] MEDS: DEXMEDETOMIDINE HCL 200 MCG in SOD CHLORIDE 0.9% 48 ML IV SCH (10:18)
--- NOTE | 2019-02-01 11:55 | CONS ---
Consult Date/Type/Reason Admit Date/Time January 29, 2019 at 18:27 Initial Consult Date 01/30/19 Type of Consult Pulmonary Requesting Provider: DUSTY VILLASENOR Date/Time of Note DATE: 02/01/19 TIME: 11:54 Subjective Patient has significant cuff leak required endotracheal tube exchange. Otherwise remains somewhat agitated on mechanical ventilation. Chest tube appears to be out of the pleural space. Objective Vital Signs Date Temp Pulse Resp B/P (MAP) Pulse Ox O2 O2 Flow FiO2 Time Delivery Rate 02/01/19 79 19 96 35 09:37 02/01/19 107/67 09:30 (80) 02/01/19 Mechanical 09:00 Ventilator 02/01/19 98.2 08:00 Intake and Output 01/31/19 01/31/19 02/01/19 1515:00 23:00 07:00 IntakeIntake Total 1217.2 ml 1294.150 ml 803.804 ml OutputOutput Total 420 ml 1040 ml 1250 ml BalanceBalance 797.2 ml 254.150 ml -446.196 ml Exam GENERAL: Obese elderly gentleman orally intubated on mechanical ventilation appears comfortable at rest VITAL SIGNS: per chart NECK: Supple. No JVD or lymphadenopathy. CARDIAC EXAM: S1, S2. No added sounds or murmurs. CHEST: Diminished air entry bilaterally ABDOMEN: Soft, nontender. No guarding or rebound. Obese soft nontender EXTREMITIES: No cyanosis, clubbing or edema. NEUROLOGIC: Generalized weakness. No focal deficits. Vent Setting Ventilator Support Mode: AC Fraction of Inspired Oxygen pe: 35 Positive End Expiratory Pressu: 5.0 Results/Medications Result Diagram: 02/01/19 0500 02/01/19 0445 Results 24 hrs Laboratory Tests Test 01/31/19 14:07 01/31/19 17:43 01/31/19 20:12 02/01/19 00:56 Procalcitonin 0.63 H Bedside Glucose 232 H 204 Vancomycin Level 17.6 Trough Test 02/01/19 04:45 02/01/19 05:00 02/01/19 08:24 Sodium Level 144 Potassium Level 4.4 Chloride Level 106 Carbon Dioxide Level 34 H Anion Gap 4 L Blood Urea Nitrogen 34 H Creatinine 0.78 Est Glomerular > 60 Filtrat Rate mL/min Glucose Level 208 Calcium Level 8.2 L Phosphorus Level 2.5 Magnesium Level 2.5 Total Bilirubin 0.7 Direct Bilirubin 0.00 Indirect Bilirubin 0.7 Aspartate Amino 20 Transf (AST/SGOT) Alanine 47 Aminotransferase (AL T/SGPT) Alkaline Phosphatase 64 Total Protein 4.9 L Albumin 2.5 L Globulin 2.40 Albumin/Globulin 1.04 Ratio White Blood Count 16.7 H Red Blood Count 2.55 L Hemoglobin 8.4 L Hematocrit 25.6 L Mean Corpuscular 100.4 Volume Mean Corpuscular 32.9 Hemoglobin Mean Corpuscular 32.8 Hemoglobin Concent Red Cell 12.7 Distribution Width Platelet Count 216 Mean Platelet Volume 9.3 Immature 1.100 H Granulocytes % Neutrophils % 95.3 H Lymphocytes % 1.6 L Monocytes % 1.9 Eosinophils % 0.0 Basophils % 0.1 Nucleated Red Blood 0.0 Cells % Immature 0.190 H Granulocytes # Neutrophils # 15.9 H Lymphocytes # 0.3 L Monocytes # 0.3 Eosinophils # 0.0 Basophils # 0.0 Nucleated Red Blood 0.0 Cells # Bedside Glucose 233 H Medications Current Medications IV Flush (NS 3 ml) 3 ml PER PROTOCOL IV ; Start 01/29/19 at 19:30 Methylprednisolone Sodium Succinate (Solu-Medrol) 30 mg Q8 IV Last administered on 02/01/19 05:58; Admin Dose 30 MG; Start 01/29/19 at 22:00 Furosemide (Lasix) 20 mg BID DIURETICS IV Last administered on 02/01/19 06:00; Admin Dose 20 MG; Start 01/30/19 at 06:00 Norepinephrine 250 ml @ 1.875 mls/ hr TITRATE IV Last administered on 01/30/19 11:09; Admin Dose 18.75 MLS/HR; Start 01/29/19 at 21:00 Fentanyl 100 ml @ 2.5 mls/hr TITRATE IV Last administered on 01/30/19 19:56; Admin Dose 10 MLS/HR; Start 01/29/19 at 21:00 Midazolam HCl 50 ml @ 1 mls/hr TITRATE IV Last administered on 01/30/19 19:53; Admin Dose 10 MLS/HR; Start 01/29/19 at 21:00 Ipratropium [place] (Atrovent Hfa) 4 puff Q4H RESP THERAPY INH Last administered on 5/22/19at 08:03; Admin Dose 4 PUFF; Start 01/29/19 at 21:28 Propofol 100 ml @ 2.964 mls/ hr Q12H IV Last administered on 02/01/19at 02:00; Admin Dose 11.856 MLS/HR; Start 01/30/19 at 03:00 Albuterol (Ventolin Hfa) 4 puff Q4H RESP THERAPY PRN INH SHORTNESS OF BREATH; Start 01/30/19 at 11:00 Cefepime HCl 50 ml @ 100 mls/hr Q12 IVPB Last administered on 02/01/19at 09:28; Admin Dose 100 MLS/HR; Start 01/30/19 at 12:30 Vancomycin HCl (Vanco Iv Per Pharmacy) VANCOMYCIN PER PHARMACY PER PROTOCOL XX ; Start 01/30/19 at 11:30 Vancomycin HCl 1.25 gm/Sodium Chloride 250 ml @ 83.333 mls/ hr Q12H IVPB Last administered on 02/01/19at 01:56; Admin Dose 83.333 MLS/HR; Start 01/30/19 at 14:00 Atorvastatin Calcium (Lipitor) 20 mg QHS PO Last administered on 01/31/19at 20:33; Admin Dose 20 MG; Start 01/30/19 at 21:00 Diagnostic Test (Pha) (Accu-Chek) 1 ea 02 XX ; Start 01/31/19 at 02:00 Miscellaneous Information 1 ea NOTE XX ; Start 01/30/19 at 15:00 Glucose (Glutose) 15 gm Q15M PRN PO DECREASED GLUCOSE; Start 01/30/19 at 15:00 Glucose (Glutose) 22.5 gm Q15M PRN PO DECREASED GLUCOSE; Start 01/30/19 at 15:00 Dextrose (D50w Syringe) 25 ml Q15M PRN IV DECREASED GLUCOSE; Start 01/30/19 at 15:00 Dextrose (D50w Syringe) 50 ml Q15M PRN IV DECREASED GLUCOSE; Start 01/30/19 at 15:00 Glucagon (Glucagen) 1 mg Q15M PRN IM DECREASED GLUCOSE; Start 01/30/19 at 15:00 Glucose (Glutose) 15 gm Q15M PRN BUCCAL DECREASED GLUCOSE; Start 01/30/19 at 15:00 Phenylephrine HCl 250 ml @ 75 mls/hr TITRATE IV Last administered on 02/01/19at 05:29; Admin Dose 30 MLS/HR; Start 01/30/19 at 21:30 Insulin Glargine (Lantus) 20 units DAILY@2000 SC Last administered on 01/31/19at 20:31; Admin Dose 20 UNITS; Start 01/31/19 at 20:00 Insulin Aspart (Novolog Insulin Pen) NOVOLOG *MODERATE* ALGORITHM WITH MEALS BEDTIME SC Last administered on 02/01/19 08:26; Admin Dose 6 UNIT; Start 01/31/19 at 17:35 Dexmedetomidine HCl 200 mcg/ Sodium Chloride 50 ml @ 4.94 mls/hr TITRATE IV Last administered on 02/01/19at 10:18; Admin Dose 4.94 MLS/HR; Start 02/01/19 at 09:30 Assessment/Plan Hospital Course (Demo Recall) IMPRESSION 1. Chronic obstructive pulmonary disease exacerbation. 2. Right pneumothorax, likely secondary to positive pressure ventilation. Still with persistent air leak. Small pneumothorax on chest x-ray this morning. 3. Possible underlying bullous lung disease. 4. Morbid obesity. 5. Septic shock source unclear at present. Plan 1. Steroids. 2. Bronchodilators. 3. Antibiotics. 4. CT chest, noted. No significant bullous disease. 5. Vasopressors as needed. 6. Deep vein thrombosis and gastrointestinal prophylaxis. 7. Cardiothoracic surgery evaluation for chest tube management. May require another chest tube given concern for bronchopleural fistula Critical care time 40 minutes. YESENIA ALCANTAR MD, [facility] February 01, 2019 11:55
--- NOTE | 2019-02-01 12:07 | CONS ---
Assessment/Plan Assessment/Plan Hospital Course (Demo Recall) No acute events overnight patient is noncommunicative intubated sedated off pressors. He is in no distress. WBC today 16.7 platelets 260 neutrophils 95.3 BUN 34 creatinine 0.78 Blood and urine cultures remain negative Indwelling: Endotracheal tube NG tube Ferrera right chest tube Antimicrobials: Vancomycin, cefepime Physical examination: Obese well-developed middle-aged man who is intubated sedated in no distress. Head atraumatic normocephalic sclera nonicteric. Neck is supple chest rise symmetrical breath sounds diminished bases. Heart: S1-S2. Abdomen soft bowel sounds hypoactive. Extremities with bilateral trace edema Assessment: 1. S/p septic shock ? etiology Procalcitonin 0.63 2. Acute hypoxemic respiratory failure/COPD exacerbation 3. Right pneumothorax 4. History of recent C-spine surgery 5. Obesity 6. Persistent leukocytosis, patient is on IV steroids Plan: Stable off pressors, continue abx, vent per pulmonary f/u sputum culture Consultation Date/Type/Reason Admit Date/Time January 29, 2019 at 18:27 Initial Consult Date 01/30/19 Type of Consult id Requesting Provider: DUSTY VILLASENOR Date/Time of Note DATE: 02/01/19 TIME: 12:05 Exam/Review of Systems Exam Vitals Vital Signs Date Temp Pulse Resp B/P (MAP) Pulse Ox O2 O2 Flow FiO2 Time Delivery Rate 02/01/19 79 19 96 35 09:37 02/01/19 107/67 09:30 (80) 02/01/19 Mechanical 09:00 Ventilator 02/01/19 98.2 08:00 Intake and Output 01/31/19 01/31/19 02/01/19 1515:00 23:00 07:00 IntakeIntake Total 1217.2 ml 1294.150 ml 803.804 ml OutputOutput Total 420 ml 1040 ml 1250 ml BalanceBalance 797.2 ml 254.150 ml -446.196 ml Results Result Diagram: 02/01/19 0500 02/01/19 0445 Results 24hrs Laboratory Tests Test 01/31/19 14:07 01/31/19 17:43 01/31/19 20:12 02/01/19 00:56 Procalcitonin 0.63 H Bedside Glucose 232 H 204 Vancomycin Level 17.6 Trough Test 02/01/19 04:45 02/01/19 05:00 02/01/19 08:24 Sodium Level 144 Potassium Level 4.4 Chloride Level 106 Carbon Dioxide Level 34 H Anion Gap 4 L Blood Urea Nitrogen 34 H Creatinine 0.78 Est Glomerular > 60 Filtrat Rate mL/min Glucose Level 208 Calcium Level 8.2 L Phosphorus Level 2.5 Magnesium Level 2.5 Total Bilirubin 0.7 Direct Bilirubin 0.00 Indirect Bilirubin 0.7 Aspartate Amino 20 Transf (AST/SGOT) Alanine 47 Aminotransferase (AL T/SGPT) Alkaline Phosphatase 64 Total Protein 4.9 L Albumin 2.5 L Globulin 2.40 Albumin/Globulin 1.04 Ratio White Blood Count 16.7 H Red Blood Count 2.55 L Hemoglobin 8.4 L Hematocrit 25.6 L Mean Corpuscular 100.4 Volume Mean Corpuscular 32.9 Hemoglobin Mean Corpuscular 32.8 Hemoglobin Concent Red Cell 12.7 Distribution Width Platelet Count 216 Mean Platelet Volume 9.3 Immature 1.100 H Granulocytes % Neutrophils % 95.3 H Lymphocytes % 1.6 L Monocytes % 1.9 Eosinophils % 0.0 Basophils % 0.1 Nucleated Red Blood 0.0 Cells % Immature 0.190 H Granulocytes # Neutrophils # 15.9 H Lymphocytes # 0.3 L Monocytes # 0.3 Eosinophils # 0.0 Basophils # 0.0 Nucleated Red Blood 0.0 Cells # Bedside Glucose 233 H Medications Medication Current Medications IV Flush (NS 3 ml) 3 ml PER PROTOCOL IV ; Start 01/29/19 at 19:30 Methylprednisolone Sodium Succinate (Solu-Medrol) 30 mg Q8 IV Last administered on 02/01/19at 05:58; Admin Dose 30 MG; Start 01/29/19 at 22:00 Furosemide (Lasix) 20 mg BID DIURETICS IV Last administered on 02/01/19at 06:00; Admin Dose 20 MG; Start 01/30/19 at 06:00 Norepinephrine 250 ml @ 1.875 mls/ hr TITRATE IV Last administered on 01/30/19at 11:09; Admin Dose 18.75 MLS/HR; Start 01/29/19 at 21:00 Fentanyl 100 ml @ 2.5 mls/hr TITRATE IV Last administered on 01/30/19at 19:56; Admin Dose 10 MLS/HR; Start 01/29/19 at 21:00 Midazolam HCl 50 ml @ 1 mls/hr TITRATE IV Last administered on 01/30/19at 19:53; Admin Dose 10 MLS/HR; Start 01/29/19 at 21:00 Ipratropium [place] (Atrovent Hfa) 4 puff Q4H RESP THERAPY INH Last administered on 02/01/19at 08:03; Admin Dose 4 PUFF; Start 01/29/19 at 21:28 Propofol 100 ml @ 2.964 mls/ hr Q12H IV Last administered on 02/01/19at 02:00; Admin Dose 11.856 MLS/HR; Start 01/30/19 at 03:00 Albuterol (Ventolin Hfa) 4 puff Q4H RESP THERAPY PRN INH SHORTNESS OF BREATH; Start 01/30/19 at 11:00 Cefepime HCl 50 ml @ 100 mls/hr Q12 IVPB Last administered on 02/01/19at 09:28; Admin Dose 100 MLS/HR; Start 01/30/19 at 12:30 Vancomycin HCl (Vanco Iv Per Pharmacy) VANCOMYCIN PER PHARMACY PER PROTOCOL XX ; Start 01/30/19 at 11:30 Vancomycin HCl 1.25 gm/Sodium Chloride 250 ml @ 83.333 mls/ hr Q12H IVPB Last administered on 02/01/19at 01:56; Admin Dose 83.333 MLS/HR; Start 01/30/19 at 14:00 Atorvastatin Calcium (Lipitor) 20 mg QHS PO Last administered on 01/31/19at 20:33; Admin Dose 20 MG; Start 01/30/19 at 21:00 Diagnostic Test (Pha) (Accu-Chek) 1 ea 02 XX ; Start 01/31/19 at 02:00 Miscellaneous Information 1 ea NOTE XX ; Start 01/30/19 at 15:00 Glucose (Glutose) 15 gm Q15M PRN PO DECREASED GLUCOSE; Start 01/30/19 at 15:00 Glucose (Glutose) 22.5 gm Q15M PRN PO DECREASED GLUCOSE; Start 01/30/19 at 15:00 Dextrose (D50w Syringe) 25 ml Q15M PRN IV DECREASED GLUCOSE; Start 01/30/19 at 15:00 Dextrose (D50w Syringe) 50 ml Q15M PRN IV DECREASED GLUCOSE; Start 01/30/19 at 15:00 Glucagon (Glucagen) 1 mg Q15M PRN IM DECREASED GLUCOSE; Start 01/30/19 at 15:00 Glucose (Glutose) 15 gm Q15M PRN BUCCAL DECREASED GLUCOSE; Start 01/30/19 at 15:00 Phenylephrine HCl 250 ml @ 75 mls/hr TITRATE IV Last administered on 02/01/19at 05:29; Admin Dose 30 MLS/HR; Start 01/30/19 at 21:30 Insulin Glargine (Lantus) 20 units DAILY@2000 SC Last administered on 01/31/19at 20:31; Admin Dose 20 UNITS; Start 01/31/19 at 20:00 Insulin Aspart (Novolog Insulin Pen) NOVOLOG *MODERATE* ALGORITHM WITH MEALS BEDTIME SC Last administered on 02/01/19at 08:26; Admin Dose 6 UNIT; Start 01/31/19 at 17:35 Dexmedetomidine HCl 200 mcg/ Sodium Chloride 50 ml @ 4.94 mls/hr TITRATE IV Last administered on 02/01/19at 10:18; Admin Dose 4.94 MLS/HR; Start 02/01/19 at 09:30 MARIO ALMANZA NP February 01, 2019 12:07
[2019-02-01] MEDS ORDERED: LIDOCAINE 1% (MDV) 20 ML INJ ONE (12:27)
--- NOTE | 2019-02-01 16:15 | RADRPT ---
Vent Rate: 125 bpm RR Interval: 480 msec WV Interval: 140 msec QRS Duration: 155 msec QT Interval: 379 msec QTC Interval: 547 msec P-R-T [place]: 257 - -70 - 90 degrees Ectopic atrial tachycardia, unifocal...abnormal P axis, V-rate> 99 Atrial premature complex...SV complex w/ short R-R interval Nonspecific IVCD with LAD...QRSd >115mS & LAD ST elevation secondary to IVCD...Multiple VCG criteria Prolonged QT interval...QTc >500mS Electronically Signed By: Anastacio Beebe
--- NOTE | 2019-02-01 16:20 | RADRPT ---
Vent Rate: 120 bpm RR Interval: 0 msec MN Interval: 0 msec QRS Duration: 164 msec QT Interval: 382 msec QTC Interval: 539 msec P-R-T [place]: 0 - -70 - 93 degrees Pronbable atrial fibrillation(Baseline wander affecting accurate interpretation) Left axis deviation Nonspecific intraventricular block Inferior infarct , age undetermined Anterolateral infarct , age undetermined Abnormal ECG Electronically Signed By: Anastacio Beebe
--- NOTE | 2019-02-01 16:20 | RADRPT ---
Vent Rate: 140 bpm RR Interval: 0 msec MN Interval: 0 msec QRS Duration: 152 msec QT Interval: 414 msec QTC Interval: 632 msec P-R-T [place]: 0 - -71 - 89 degrees Probabale Atrial fibrillation(baselien artifact affecting accurate interpretation) Left axis deviation Nonspecific intraventricular block Inferior infarct , age undetermined Anterolateral infarct , age undetermined Abnormal ECG Electronically Signed By: Anastacio Beebe
--- NOTE | 2019-02-01 16:25 | OPR ---
DATE OF OPERATION: PREOPERATIVE DIAGNOSIS: Right pneumothorax. POSTOPERATIVE DIAGNOSIS: Right pneumothorax. OPERATION PERFORMED: Right chest tube placement. SURGEON: Gayla Mac MD ANESTHESIA: Local. CONSENT: Risks, benefits, complications, alternative therapies explained to the [facility], consent obtained. OPERATIVE TECHNIQUE: Patient was placed in supine position, prepped and prepped in the usual sterile fashion. 1% lidocaine was used throughout the operation for local anesthesia. Time-out was called. The previous chest tube was removed. The incision was explored. I put my finger into the pleural cavity, advanced the [place] chest tube into the pleural cavity posteriorly which was then secured to skin using silk sutures. Patient tolerated the procedure well. Dictated By: GAYLA CRUMP/AU[place]O Conf#: [id number] DID#: [id number]
[2019-02-01] MEDS: ATORVASTATIN 20 MG TAB PO SCH (20:11)
[2019-02-01] MEDS: INSULIN GLARGINE [LANTus] (100 UNITS/ML) SYG SC SCH (20:25)
[2019-02-02] VITALS (105 sets, daily range): BP systolic 75–150; BP diastolic 51–107; PULSE 56–106; RESP 16–24
[2019-02-02] MEDS: ACCU-CHEK XX SCH (01:40)
[2019-02-02] MEDS: IPRATROPIUM (HFA) 12.9 GM INHALER INH SCH ×6 (01:55→21:20)
[2019-02-02] MEDS: VANCOMYCIN 1 GM 250 ML IVPB SCH ×2 (04:22→15:40)
[2019-02-02] MEDS: METHYLPREDNISOLONE 40 MG INJ IV SCH (05:22)
[2019-02-02] MEDS: FUROSEMIDE 20 MG INJ IV SCH (05:23)
[2019-02-02] MEDS: PHENYLephrine 20MG IN 250 ML 250 ML IV SCH ×2 (05:32→15:41)
[2019-02-02] MEDS: PROPOFOL 100 ML IV SCH ×3 (06:50→23:39)
[2019-02-02] MEDS: INSULIN ASPART [NOVOLOG] 3 ML PEN SC SCH ×5 (07:35→21:03)
--- NOTE | 2019-02-02 10:06 | PN ---
Date/Time of Note Date/Time of Note DATE: 02/02/19 TIME: 10:02 Assessment/Plan VTE Pro[place]axis [place] [facility] [place]: 10 SCD applied (from Ns): Yes Pharmacological prophylaxis: other Lines/Catheters IV Catheter Type (from [facility]): Central Line Central line still needed: Yes Urinary Cath still in place: Yes Reason Cath still needed: urinary retention Assessment/Plan Hospital Course S: Patient still intubated, chest tube still in place and patient developed some subcutaneous emphysema yesterday which is slowly improving after adjustments made to the chest tube yesterday secondary to leak. O: VS- see below PE: Intubated, sedated Lungs clear anteriorly R sided chest tube in place RRR Soft nt nd Ext with mild edema, warm 2D echo January 29, 2019: Conclusions: Normal left ventricular cavity size. Normal left ventricular wall thickness. Mild left ventricular systolic dysfunction. Ejection fraction is visually estimated at 45 %. Abnormal Diastolic Function. Normal right ventricular size. Normal right ventricular systolic function. The left atrium is normal in size. The right atrium is normal in size. Normal appearance of the tricuspid valve. Estimated peak PA systolic pressure 67 mmHg. There is mild tricuspid regurgitation. No significant valvular stenosis or regurgitation seen of remaining visualized valves. Normal pericardium with no significant pericardial effusion. CT neck January 29, 2019: IMPRESSION: 1. Right laminectomies of C3 - C6 with internal fixation plate and screws. 2. Nondisplaced fractures of the C3 - C6 left lamina. 3. Small right pneumothorax with chest tube in place. 4. Bilateral subsegmental atelectasis involving the upper lobes . 5. Postsurgical edema and scar located in the midline of C2 - C6. A/P: 58 yo male with likely COPD and CHF though exact history unknown who presented with respiratory distress and hypercapnic respiratory failure. Was on BIPAP when decompensated and found to have pneumothorax, intubated and with R chest tube on admission. # Acute hypercapnic respiratory failure- likely from COPD per reports and respiratory acidosis - slowly improving -For now continue as needed Bronchodilators, will start tapering steroids, continue antibiotics -Monitor white blood cell (trending down now), continue mechanical ventil ation per pulmonary -for another possible weaning trial later today # Pneumothorax: Found on chest x-ray 4 days ago, chest tube has been in place and was repositioned yesterday, patient again has some subcutaneous emphysema but based on the serial chest x-rays since then the pneumothorax appears to be slowly resolving now. -Monitor, follow-up further recommendations from CTS team for chest tube management -Also follow up pulmonary recommendations #Leukocytosis: Still present but trending down, today WBC 11; no fevers. Patient is on steroids as well, which as mentioned above we are going to start tapering -Continue broad-spectrum antibiotics follow-up final culture results -Follow-up further recommendations from infectious disease consult # C-spine sx -occurred at outside hospital recently within the last one 1 week apparently -Again, awaiting medical records from [facility] for further investigate this since the patient was discharged from there 6 days ago after being treated there for C neck pathology and apparently had surgery there at that time on the cervical spine. -Monitor, follow-up recommendations from PT alejandra #Questionable EKG findings: There is some signs of LVH and questionable ST changes -We will check stat troponin, If there are any abnormalities here we will consider cardiology consult Dispo: Further management pending clinical course Critical care time spent in patient care today equals 40 minutes. Result Diagram: 02/02/19 0434 02/02/19 0434 Results 24hrs Laboratory Tests Test 02/01/19 11:51 02/01/19 17:31 02/01/19 20:05 02/02/19 04:34 Bedside Glucose 213 198 150 White Blood Count 11.7 #H Red Blood Count 2.63 L Hemoglobin 8.5 L Hematocrit 26.0 L Mean Corpuscular 98.9 Volume Mean Corpuscular 32.3 Hemoglobin Mean Corpuscular 32.7 Hemoglobin Concen t Red Cell 12.9 Distribution Width Platelet Count 204 Mean Platelet 9.4 Volume Immature 0.700 H Granulocytes % Neutrophils % 93.4 H Lymphocytes % 3.0 L Monocytes % 2.8 Eosinophils % 0.0 Basophils % 0.1 Nucleated Red 0.0 Blood Cells % Immature 0.080 H Granulocytes # Neutrophils # 11.0 H Lymphocytes # 0.4 L Monocytes # 0.3 Eosinophils # 0.0 Basophils # 0.0 Nucleated Red 0.0 Blood Cells # Sodium Level 143 Potassium Level 4.1 Chloride Level 106 Carbon Dioxide 35 H Level Anion Gap 2 L Blood Urea 40 H Nitrogen Creatinine 0.79 Est Glomerular > 60 Filtrat Rate mL/min Glucose Level 155 Calcium Level 8.2 L Phosphorus Level 2.9 Magnesium Level 2.5 Total Bilirubin 0.6 Direct Bilirubin 0.00 Indirect 0.6 Bilirubin Aspartate Amino 16 Transf (AST/SGOT) Alanine 40 Aminotransferase (ALT/SGPT) Alkaline 69 Phosphatase Total Protein 5.3 L Albumin 2.6 L Globulin 2.70 Albumin/Globulin 0.96 Ratio Test 02/02/19 07:00 Blood Gas Blood arterial Specimen Source Arterial Blood 02/02/2019 7:53:2 Date Drawn 0 AM Arterial Blood pH 7.448 (Temp corrected) Arterial Blood 48.1 H pCO2 (Temp correct) Arterial Blood 86.2 pO2 (Temp corrected) Arterial Blood 32.5 H HCO3 Arterial Blood 7.5 H Base Excess Arterial Blood 95.8 Oxygen Saturation Adeel Test ACCEPTAB Arterial Blood Right Radial Gas Puncture Site Arterial 0.2 Blood Carboxyhemo globin Arterial Blood 0.3 Methemoglobin Blood Gas A-a O2 107.4 H Differential Oxyhemoglobin 95.3 Percent Blood Gas 37.0 Temperature Blood Gas 18.0 Respiration Rate Blood Gas Actual 19 Respiration Rate Blood Gas VENT - AC Modality FiO2 35.0 Blood Gas Tidal 600.0 Volume Blood Gas Low 5.0 PEEP Setting Blood Gas TM Notified Whom Blood Gas 02/02/2019 8:11:0 Notified Time 6 AM Exam/Review of Systems Exam Vitals Vital Signs Date Temp Pulse Resp B/P (MAP) Pulse Ox O2 O2 Flow FiO2 Time Delivery Rate 02/02/19 70 18 90/59 (69) 100 Mechanical 06:00 Ventilator 02/02/19 35 04:57 02/02/19 98.6 04:00 Intake and Output 02/01/19 02/01/19 02/02/19 1515:00 23:00 07:00 IntakeIntake Total 108.7 ml 797.841 ml 736.600 ml OutputOutput Total 905 ml 1100 ml 695 ml BalanceBalance -796.3 ml -302.159 ml 41.600 ml Results Results 24hrs Laboratory Tests Test 02/01/19 11:51 02/01/19 17:31 02/01/19 20:05 02/02/19 04:34 Bedside Glucose 213 198 150 White Blood Count 11.7 #H Red Blood Count 2.63 L Hemoglobin 8.5 L Hematocrit 26.0 L Mean Corpuscular 98.9 Volume Mean Corpuscular 32.3 Hemoglobin Mean Corpuscular 32.7 Hemoglobin Concen t Red Cell 12.9 Distribution Width Platelet Count 204 Mean Platelet 9.4 Volume Immature 0.700 H Granulocytes % Neutrophils % 93.4 H Lymphocytes % 3.0 L Monocytes % 2.8 Eosinophils % 0.0 Basophils % 0.1 Nucleated Red 0.0 Blood Cells % Immature 0.080 H Granulocytes # Neutrophils # 11.0 H Lymphocytes # 0.4 L Monocytes # 0.3 Eosinophils # 0.0 Basophils # 0.0 Nucleated Red 0.0 Blood Cells # Sodium Level 143 Potassium Level 4.1 Chloride Level 106 Carbon Dioxide 35 H Level Anion Gap 2 L Blood Urea 40 H Nitrogen Creatinine 0.79 Est Glomerular > 60 Filtrat Rate mL/min Glucose Level 155 Calcium Level 8.2 L Phosphorus Level 2.9 Magnesium Level 2.5 Total Bilirubin 0.6 Direct Bilirubin 0.00 Indirect 0.6 Bilirubin Aspartate Amino 16 Transf (AST/SGOT) Alanine 40 Aminotransferase (ALT/SGPT) Alkaline 69 Phosphatase Total Protein 5.3 L Albumin 2.6 L Globulin 2.70 Albumin/Globulin 0.96 Ratio Test 02/02/19 07:00 Blood Gas Blood arterial Specimen Source Arterial Blood 02/02/2019 7:53:2 Date Drawn 0 AM Arterial Blood pH 7.448 (Temp corrected) Arterial Blood 48.1 H pCO2 (Temp correct) Arterial Blood 86.2 pO2 (Temp corrected) Arterial Blood 32.5 H HCO3 Arterial Blood 7.5 H Base Excess Arterial Blood 95.8 Oxygen Saturation Adeel Test ACCEPTAB Arterial Blood Right Radial Gas Puncture Site Arterial 0.2 Blood Carboxyhemo globin Arterial Blood 0.3 Methemoglobin Blood Gas A-a O2 107.4 H Differential Oxyhemoglobin 95.3 Percent Blood Gas 37.0 Temperature Blood Gas 18.0 Respiration Rate Blood Gas Actual 19 Respiration Rate Blood Gas VENT - AC Modality FiO2 35.0 Blood Gas Tidal 600.0 Volume Blood Gas Low 5.0 PEEP Setting Blood Gas TM Notified Whom Blood Gas 02/02/2019 8:11:0 Notified Time 6 AM Medications Medication Current Medications IV Flush (NS 3 ml) 3 ml PER PROTOCOL IV ; Start 01/29/19 at 19:30 Methylprednisolone Sodium Succinate (Solu-Medrol) 30 mg Q8 IV Last administered on 02/02/19at 05:22; Admin Dose 30 MG; Start 01/29/19 at 22:00 Norepinephrine 250 ml @ 1.875 mls/ hr TITRATE IV Last administered on 01/30/19 11:09; Admin Dose 18.75 MLS/HR; Start 01/29/19 at 21:00 Fentanyl 100 ml @ 2.5 mls/hr TITRATE IV Last administered on 01/30/19at 19:56; Admin Dose 10 MLS/HR; Start 01/29/19 at 21:00 Midazolam HCl 50 ml @ 1 mls/hr TITRATE IV Last administered on 01/30/19 19:53; Admin Dose 10 MLS/HR; Start 01/29/19 at 21:00 Ipratropium [place] (Atrovent Hfa) 4 puff Q4H RESP THERAPY INH Last administered on 02/02/19 07:50; Admin Dose 4 PUFF; Start 01/29/19 at 21:28 Propofol 100 ml @ 2.964 mls/ hr Q12H IV Last administered on 02/02/19 06:50; Admin Dose 1.186 MLS/HR; Start 01/30/19 at 03:00 Albuterol (Ventolin Hfa) 4 puff Q4H RESP THERAPY PRN INH SHORTNESS OF BREATH; Start 01/30/19 at 11:00 Cefepime HCl 50 ml @ 100 mls/hr Q12 IVPB Last administered on 02/01/19at 20:11; Admin Dose 100 MLS/HR; Start 01/30/19 at 12:30 Vancomycin HCl (Vanco Iv Per Pharmacy) VANCOMYCIN PER PHARMACY PER PROTOCOL XX ; Start 01/30/19 at 11:30 Atorvastatin Calcium (Lipitor) 20 mg QHS PO Last administered on 02/01/19at 20:11; Admin Dose 20 MG; Start 01/30/19 at 21:00 Miscellaneous Information 1 ea NOTE XX ; Start 01/30/19 at 15:00 Glucose (Glutose) 15 gm Q15M PRN PO DECREASED GLUCOSE; Start 01/30/19 at 15:00 Glucose (Glutose) 22.5 gm Q15M PRN PO DECREASED GLUCOSE; Start 01/30/19 at 15:00 Dextrose (D50w Syringe) 25 ml Q15M PRN IV DECREASED GLUCOSE; Start 01/30/19 at 15:00 Dextrose (D50w Syringe) 50 ml Q15M PRN IV DECREASED GLUCOSE; Start 01/30/19 at 15:00 Glucagon (Glucagen) 1 mg Q15M PRN IM DECREASED GLUCOSE; Start 01/30/19 at 15:00 Glucose (Glutose) 15 gm Q15M PRN BUCCAL DECREASED GLUCOSE; Start 01/30/19 at 15:00 Phenylephrine HCl 250 ml @ 75 mls/hr TITRATE IV Last administered on 02/02/19at 05:32; Admin Dose 7.5 MLS/HR; Start 01/30/19 at 21:30 Insulin Glargine (Lantus) 20 units DAILY@2000 SC Last administered on 02/01/19at 20:25; Admin Dose 20 UNITS; Start 01/31/19 at 20:00 Dexmedetomidine HCl 200 mcg/ Sodium Chloride 50 ml @ 4.94 mls/hr TITRATE IV Last administered on 02/01/19at 10:18; Admin Dose 4.94 MLS/HR; Start 02/01/19 at 09:30 Vancomycin HCl 250 ml @ 125 mls/hr Q12H IVPB Last administered on 02/02/19at 04:22; Admin Dose 125 MLS/HR; Start 02/02/19 at 03:00 Insulin Aspart (Novolog Insulin Pen) NOVOLOG *MODERATE* ALGORI... Q4 SC ; Start 02/02/19 at 09:00 Famotidine (Pepcid Iv) 20 mg DAILY IV ; Start 02/02/19 at 09:00 Furosemide (Lasix) 20 mg BID DIURETICS PO ; Start 02/02/19 at 18:00 DUSTY VILLASENOR February 02, 2019 10:06
[2019-02-02] MEDS: DEXMEDETOMIDINE HCL 200 MCG in SOD CHLORIDE 0.9% 48 ML IV SCH ×5 (10:08→22:31)
[2019-02-02] MEDS: CEFEPIME 2GM/50 ML (PMX) 50 ML IVPB SCH ×2 (10:08→20:14)
[2019-02-02] MEDS: FAMOTIDINE 20 MG INJ IV SCH (10:08)
--- NOTE | 2019-02-02 10:37 | CONS ---
Consult Date/Type/Reason Admit Date/Time January 29, 2019 at 18:27 Initial Consult Date 01/30/19 Type of Consult Pulmonary Requesting Provider: DUSTY VILALSENOR Date/Time of Note DATE: 02/02/19 TIME: 10:35 Subjective Follows simple commands. Chest tube was replaced yesterday. Significant subcutaneous emphysema noted now. Objective Vital Signs Date Temp Pulse Resp B/P (MAP) Pulse Ox O2 O2 Flow FiO2 Time Delivery Rate 02/02/19 70 18 90/59 (69) 100 Mechanical 06:00 Ventilator 02/02/19 35 04:57 02/02/19 98.6 04:00 Intake and Output 02/01/19 02/01/19 02/02/19 1515:00 23:00 07:00 IntakeIntake Total 108.7 ml 797.841 ml 736.600 ml OutputOutput Total 905 ml 1100 ml 695 ml BalanceBalance -796.3 ml -302.159 ml 41.600 ml Exam GENERAL: Obese elderly gentleman orally intubated on mechanical ventilation appears comfortable at rest VITAL SIGNS: per chart NECK: Supple. No JVD or lymphadenopathy. Significant subcutaneous emphysema noted. CARDIAC EXAM: S1, S2. No added sounds or murmurs. CHEST: Diminished air entry bilaterally ABDOMEN: Soft, nontender. No guarding or rebound. Obese soft nontender EXTREMITIES: No cyanosis, clubbing or edema. NEUROLOGIC: Generalized weakness. No focal deficits. Vent Setting Ventilator Support Mode: AC Fraction of Inspired Oxygen pe: 35 Positive End Expiratory Pressu: 5.0 Results/Medications Result Diagram: 02/02/19 0434 02/02/19 0434 Results 24 hrs Laboratory Tests Test 02/01/19 11:51 02/01/19 17:31 02/01/19 20:05 02/02/19 04:34 Bedside Glucose 213 198 150 White Blood Count 11.7 #H Red Blood Count 2.63 L Hemoglobin 8.5 L Hematocrit 26.0 L Mean Corpuscular 98.9 Volume Mean Corpuscular 32.3 Hemoglobin Mean Corpuscular 32.7 Hemoglobin Concen t Red Cell 12.9 Distribution Width Platelet Count 204 Mean Platelet 9.4 Volume Immature 0.700 H Granulocytes % Neutrophils % 93.4 H Lymphocytes % 3.0 L Monocytes % 2.8 Eosinophils % 0.0 Basophils % 0.1 Nucleated Red 0.0 Blood Cells % Immature 0.080 H Granulocytes # Neutrophils # 11.0 H Lymphocytes # 0.4 L Monocytes # 0.3 Eosinophils # 0.0 Basophils # 0.0 Nucleated Red 0.0 Blood Cells # Sodium Level 143 Potassium Level 4.1 Chloride Level 106 Carbon Dioxide 35 H Level Anion Gap 2 L Blood Urea 40 H Nitrogen Creatinine 0.79 Est Glomerular > 60 Filtrat Rate mL/min Glucose Level 155 Calcium Level 8.2 L Phosphorus Level 2.9 Magnesium Level 2.5 Total Bilirubin 0.6 Direct Bilirubin 0.00 Indirect 0.6 Bilirubin Aspartate Amino 16 Transf (AST/SGOT) Alanine 40 Aminotransferase (ALT/SGPT) Alkaline 69 Phosphatase Total Protein 5.3 L Albumin 2.6 L Globulin 2.70 Albumin/Globulin 0.96 Ratio Test 02/02/19 07:00 02/02/19 10:01 Blood Gas Blood arterial Specimen Source Arterial Blood 02/02/2019 7:53:2 Date Drawn 0 AM Arterial Blood pH 7.448 (Temp corrected) Arterial Blood 48.1 H pCO2 (Temp correct) Arterial Blood 86.2 pO2 (Temp corrected) Arterial Blood 32.5 H HCO3 Arterial Blood 7.5 H Base Excess Arterial Blood 95.8 Oxygen Saturation Adeel Test ACCEPTAB Arterial Blood Right Radial Gas Puncture Site Arterial 0.2 Blood Carboxyhemo globin Arterial Blood 0.3 Methemoglobin Blood Gas A-a O2 107.4 H Differential Oxyhemoglobin 95.3 Percent Blood Gas 37.0 Temperature Blood Gas 18.0 Respiration Rate Blood Gas Actual 19 Respiration Rate Blood Gas VENT - AC Modality FiO2 35.0 Blood Gas Tidal 600.0 Volume Blood Gas Low 5.0 PEEP Setting Blood Gas TM Notified Whom Blood Gas 02/02/2019 8:11:0 Notified Time 6 AM Bedside Glucose 245 H Medications Current Medications IV Flush (NS 3 ml) 3 ml PER PROTOCOL IV ; Start 01/29/19 at 19:30 Norepinephrine 250 ml @ 1.875 mls/ hr TITRATE IV Last administered on 01/30/19at 11:09; Admin Dose 18.75 MLS/HR; Start 01/29/19 at 21:00 Fentanyl 100 ml @ 2.5 mls/hr TITRATE IV Last administered on 01/30/19at 19:56; Admin Dose 10 MLS/HR; Start 01/29/19 at 21:00 Midazolam HCl 50 ml @ 1 mls/hr TITRATE IV Last administered on 01/30/19at 19:53; Admin Dose 10 MLS/HR; Start 01/29/19 at 21:00 Ipratropium [place] (Atrovent Hfa) 4 puff Q4H RESP THERAPY INH Last administered on 02/02/19at 07:50; Admin Dose 4 PUFF; Start 01/29/19 at 21:28 Propofol 100 ml @ 2.964 mls/ hr Q12H IV Last administered on 02/02/19at 06:50; Admin Dose 1.186 MLS/HR; Start 01/30/19 at 03:00 Albuterol (Ventolin Hfa) 4 puff Q4H RESP THERAPY PRN INH SHORTNESS OF BREATH; Start 01/30/19 at 11:00 Cefepime HCl 50 ml @ 100 mls/hr Q12 IVPB Last administered on 02/02/19at 10:08; Admin Dose 100 MLS/HR; Start 01/30/19 at 12:30 Vancomycin HCl (Vanco Iv Per Pharmacy) VANCOMYCIN PER PHARMACY PER PROTOCOL XX ; Start 01/30/19 at 11:30 Atorvastatin Calcium (Lipitor) 20 mg QHS PO Last administered on 02/01/19at 20:11; Admin Dose 20 MG; Start 01/30/19 at 21:00 Miscellaneous Information 1 ea NOTE XX ; Start 01/30/19 at 15:00 Glucose (Glutose) 15 gm Q15M PRN PO DECREASED GLUCOSE; Start 01/30/19 at 15:00 Glucose (Glutose) 22.5 gm Q15M PRN PO DECREASED GLUCOSE; Start 01/30/19 at 15:00 Dextrose (D50w Syringe) 25 ml Q15M PRN IV DECREASED GLUCOSE; Start 01/30/19 at 15:00 Dextrose (D50w Syringe) 50 ml Q15M PRN IV DECREASED GLUCOSE; Start 01/30/19 at 15:00 Glucagon (Glucagen) 1 mg Q15M PRN IM DECREASED GLUCOSE; Start 01/30/19 at 15:00 Glucose (Glutose) 15 gm Q15M PRN BUCCAL DECREASED GLUCOSE; Start 01/30/19 at 15:00 Phenylephrine HCl 250 ml @ 75 mls/hr TITRATE IV Last administered on 02/02/19at 05:32; Admin Dose 7.5 MLS/HR; Start 01/30/19 at 21:30 Dexmedetomidine HCl 200 mcg/ Sodium Chloride 50 ml @ 4.94 mls/hr TITRATE IV Last administered on 02/02/19at 10:08; Admin Dose 17.29 MLS/HR; Start 02/01/19 at 09:30 Vancomycin HCl 250 ml @ 125 mls/hr Q12H IVPB Last administered on 02/02/19at 04:22; Admin Dose 125 MLS/HR; Start 02/02/19 at 03:00 Insulin Aspart (Novolog Insulin Pen) NOVOLOG *MODERATE* ALGORI... Q4 SC Last administered on 02/02/19at 10:09; Admin Dose 6 UNIT; Start 02/02/19 at 09:00 Famotidine (Pepcid Iv) 20 mg DAILY IV Last administered on 02/02/19at 10:08; Admin Dose 20 MG; Start 02/02/19 at 09:00 Furosemide (Lasix) 20 mg BID DIURETICS PO ; Start 02/02/19 at 18:00 Insulin Glargine (Lantus) 16 units DAILY@2000 SC ; Start 02/02/19 at 20:00 Prednisone (Prednisone) 40 mg DAILY PO ; Start 02/03/19 at 09:00; Stop 02/04/19 at 11:55 Assessment/Plan Hospital Course (Demo Recall) IMPRESSION 1. Chronic obstructive pulmonary disease exacerbation. 2. Right pneumothorax, likely secondary to positive pressure ventilation. Still with persistent air leak. Significant subcutaneous emphysema noted. Chest tube was replaced yesterday. 3. Possible underlying bullous lung disease. 4. Morbid obesity. 5. Septic shock source unclear at present. Plan 1. Steroids. CPAP weaning trial this morning. 2. Bronchodilators. 3. Antibiotics. 4. CT chest, noted. No significant bullous disease. 5. Vasopressors as needed. 6. Deep vein thrombosis and gastrointestinal prophylaxis. Critical care time 40 minutes. YESENIA ALCANTAR MD, [facility] February 02, 2019 10:37
--- NOTE | 2019-02-02 11:59 | PN ---
Date/Time of Note Date/Time of Note DATE: 02/02/19 TIME: 11:57 Assessment/Plan Lines/Catheters IV Catheter Type (from Nrsg): Central Line Ferrera in Place (from Nrsg): Yes Assessment/Plan Assessment/Plan Right pneumothorax Status post chest tube placement Chest tube readjusted Chest x-ray with subcutaneous emphysema but no definitive pneumothorax Continue chest tube suction Repeat chest x-ray Subjective 24 Hr Interval Summary Constitutional: improved Pain Control: mild Exam/Review of Systems Vital Signs Vitals Vital Signs Date Temp Pulse Resp B/P (MAP) Pulse Ox O2 O2 Flow FiO2 Time Delivery Rate 02/02/19 61 18 100/64 100 Mechanical 11:00 (76) Ventilator 02/02/19 98.5 08:00 02/02/19 35 04:57 Intake and Output 02/01/19 02/01/19 02/02/19 1515:00 23:00 07:00 IntakeIntake Total 108.7 ml 797.841 ml 736.600 ml OutputOutput Total 905 ml 1100 ml 695 ml BalanceBalance -796.3 ml -302.159 ml 41.600 ml Exam Head: normocephalic, atraumatic Eyes: nl conjunctiva, EOMI, nl lids, nl sclera ENMT: nl external ears & nose, nl lips & teeth, nl nasal mucosa & septum, mucosa pink and moist Neck: supple, non-tender Respiratory: clear to auscultation, normal air movement Cardiovascular: regular rate and rhythm, nl pulses Gastrointestinal: soft, nl liver, spleen, non-tender Additional Comments Minimal subcutaneous emphysema noted in the chest Results Result Diagram: 02/02/19 0434 02/02/19 0434 GAYLA BURLESON MD February 02, 2019 11:59
--- NOTE | 2019-02-02 12:14 | CONS ---
Assessment/Plan Assessment/Plan Hospital Course (Demo Recall) Patient failed weaning today his chest tube was readjusted, chest x-ray repeated results pending, WBC 11.7 platelets 204 neutrophils 93.4 BUN 40 creatinine 0.79 Blood and urine cultures remain negative Indwelling: Endotracheal tube NG tube Ferrera right chest tube Antimicrobials: Vancomycin, cefepime Physical examination: Obese well-developed middle-aged man who is intubated sedated in no distress. Head atraumatic normocephalic sclera nonicteric. Neck is supple chest rise symmetrical breath sounds diminished bases. Heart: S1-S2. Abdomen soft bowel sounds hypoactive. Extremities with bilateral trace edema Assessment: 1. S/p septic shock ? etiology Procalcitonin 0.63 2. Acute hypoxemic respiratory failure/COPD exacerbation 3. Right pneumothorax 4. History of recent C-spine surgery 5. Obesity 6. Persistent leukocytosis, patient is on IV steroids Plan: Clinically stable, WBC trending down, continue abx, vent per pulmonary Consultation Date/Type/Reason Admit Date/Time January 29, 2019 at 18:27 Initial Consult Date 01/30/19 Type of Consult id Requesting Provider: DUSTY VILLASENOR Date/Time of Note DATE: 02/02/19 TIME: 12:13 Exam/Review of Systems Exam Vitals Vital Signs Date Temp Pulse Resp B/P (MAP) Pulse Ox O2 O2 Flow FiO2 Time Delivery Rate 02/02/19 61 18 100/64 100 Mechanical 11:00 (76) Ventilator 02/02/19 98.5 08:00 02/02/19 35 04:57 Intake and Output 02/01/19 02/01/19 02/02/19 1515:00 23:00 07:00 IntakeIntake Total 108.7 ml 797.841 ml 736.600 ml OutputOutput Total 905 ml 1100 ml 695 ml BalanceBalance -796.3 ml -302.159 ml 41.600 ml Results Result Diagram: 02/02/19 0434 02/02/19 0434 Results 24hrs Laboratory Tests Test 02/01/19 17:31 02/01/19 20:05 02/02/19 04:34 02/02/19 07:00 Bedside Glucose 198 150 White Blood Count 11.7 #H Red Blood Count 2.63 L Hemoglobin 8.5 L Hematocrit 26.0 L Mean Corpuscular 98.9 Volume Mean Corpuscular 32.3 Hemoglobin Mean Corpuscular 32.7 Hemoglobin Concen t Red Cell 12.9 Distribution Width Platelet Count 204 Mean Platelet 9.4 Volume Immature 0.700 H Granulocytes % Neutrophils % 93.4 H Lymphocytes % 3.0 L Monocytes % 2.8 Eosinophils % 0.0 Basophils % 0.1 Nucleated Red 0.0 Blood Cells % Immature 0.080 H Granulocytes # Neutrophils # 11.0 H Lymphocytes # 0.4 L Monocytes # 0.3 Eosinophils # 0.0 Basophils # 0.0 Nucleated Red 0.0 Blood Cells # Sodium Level 143 Potassium Level 4.1 Chloride Level 106 Carbon Dioxide 35 H Level Anion Gap 2 L Blood Urea 40 H Nitrogen Creatinine 0.79 Est Glomerular > 60 Filtrat Rate mL/min Glucose Level 155 Calcium Level 8.2 L Phosphorus Level 2.9 Magnesium Level 2.5 Total Bilirubin 0.6 Direct Bilirubin 0.00 Indirect 0.6 Bilirubin Aspartate Amino 16 Transf (AST/SGOT) Alanine 40 Aminotransferase (ALT/SGPT) Alkaline 69 Phosphatase Total Protein 5.3 L Albumin 2.6 L Globulin 2.70 Albumin/Globulin 0.96 Ratio Blood Gas Blood arterial Specimen Source Arterial Blood 02/02/2019 7:53:2 Date Drawn 0 AM Arterial Blood pH 7.448 (Temp corrected) Arterial Blood 48.1 H pCO2 (Temp correct) Arterial Blood 86.2 pO2 (Temp corrected) Arterial Blood 32.5 H HCO3 Arterial Blood 7.5 H Base Excess Arterial Blood 95.8 Oxygen Saturation Adeel Test ACCEPTAB Arterial Blood Right Radial Gas Puncture Site Arterial 0.2 Blood Carboxyhemo globin Arterial Blood 0.3 Methemoglobin Blood Gas A-a O2 107.4 H Differential Oxyhemoglobin 95.3 Percent Blood Gas 37.0 Temperature Blood Gas 18.0 Respiration Rate Blood Gas Actual 19 Respiration Rate Blood Gas VENT - AC Modality FiO2 35.0 Blood Gas Tidal 600.0 Volume Blood Gas Low 5.0 PEEP Setting Blood Gas TM Notified Whom Blood Gas 02/02/2019 8:11:0 Notified Time 6 AM Test 02/02/19 10:01 02/02/19 10:21 Bedside Glucose 245 H Troponin I 0.045 Medications Medication Current Medications IV Flush (NS 3 ml) 3 ml PER PROTOCOL IV ; Start 01/29/19 at 19:30 Norepinephrine 250 ml @ 1.875 mls/ hr TITRATE IV Last administered on 01/30/19 11:09; Admin Dose 18.75 MLS/HR; Start 01/29/19 at 21:00 Fentanyl 100 ml @ 2.5 mls/hr TITRATE IV Last administered on 01/30/19 19:56; Admin Dose 10 MLS/HR; Start 01/29/19 at 21:00 Midazolam HCl 50 ml @ 1 mls/hr TITRATE IV Last administered on 01/30/19 19:53; Admin Dose 10 MLS/HR; Start 01/29/19 at 21:00 Ipratropium [place] (Atrovent Hfa) 4 puff Q4H RESP THERAPY INH Last administered on 02/02/19 07:50; Admin Dose 4 PUFF; Start 01/29/19 at 21:28 Propofol 100 ml @ 2.964 mls/ hr Q12H IV Last administered on 02/02/19 06:50; Admin Dose 1.186 MLS/HR; Start 01/30/19 at 03:00 Albuterol (Ventolin Hfa) 4 puff Q4H RESP THERAPY PRN INH SHORTNESS OF BREATH; Start 01/30/19 at 11:00 Cefepime HCl 50 ml @ 100 mls/hr Q12 IVPB Last administered on 02/02/19 10:08; Admin Dose 100 MLS/HR; Start 01/30/19 at 12:30 Vancomycin HCl (Vanco Iv Per Pharmacy) VANCOMYCIN PER PHARMACY PER PROTOCOL XX ; Start 01/30/19 at 11:30 Atorvastatin Calcium (Lipitor) 20 mg QHS PO Last administered on 02/01/19at 20:11; Admin Dose 20 MG; Start 01/30/19 at 21:00 Miscellaneous Information 1 ea NOTE XX ; Start 01/30/19 at 15:00 Glucose (Glutose) 15 gm Q15M PRN PO DECREASED GLUCOSE; Start 01/30/19 at 15:00 Glucose (Glutose) 22.5 gm Q15M PRN PO DECREASED GLUCOSE; Start 01/30/19 at 15:00 Dextrose (D50w Syringe) 25 ml Q15M PRN IV DECREASED GLUCOSE; Start 01/30/19 at 15:00 Dextrose (D50w Syringe) 50 ml Q15M PRN IV DECREASED GLUCOSE; Start 01/30/19 at 15:00 Glucagon (Glucagen) 1 mg Q15M PRN IM DECREASED GLUCOSE; Start 01/30/19 at 15:00 Glucose (Glutose) 15 gm Q15M PRN BUCCAL DECREASED GLUCOSE; Start 01/30/19 at 1 5:00 Phenylephrine HCl 250 ml @ 75 mls/hr TITRATE IV Last administered on 02/02/19at 05:32; Admin Dose 7.5 MLS/HR; Start 01/30/19 at 21:30 Dexmedetomidine HCl 200 mcg/ Sodium Chloride 50 ml @ 4.94 mls/hr TITRATE IV Last administered on 02/02/19at 10:08; Admin Dose 17.29 MLS/HR; Start 02/01/19 at 09:30 Vancomycin HCl 250 ml @ 125 mls/hr Q12H IVPB Last administered on 02/02/19at 04:22; Admin Dose 125 MLS/HR; Start 02/02/19 at 03:00 Insulin Aspart (Novolog Insulin Pen) NOVOLOG *MODERATE* ALGORI... Q4 SC Last administered on 02/02/19at 10:09; Admin Dose 6 UNIT; Start 02/02/19 at 09:00 Famotidine (Pepcid Iv) 20 mg DAILY IV Last administered on 02/02/19at 10:08; Admin Dose 20 MG; Start 02/02/19 at 09:00 Furosemide (Lasix) 20 mg BID DIURETICS PO ; Start 02/02/19 at 18:00 Insulin Glargine (Lantus) 16 units DAILY@2000 SC ; Start 02/02/19 at 20:00 Prednisone (Prednisone) 40 mg DAILY PO ; Start 02/03/19 at 09:00; Stop 02/04/19 at 11:55 MARIO ALMANZA NP February 02, 2019 12:14
[2019-02-02] MEDS: FENTAnyl (DRIP) 1000 mcg/100mL 100 ML IV SCH (12:53)
[2019-02-02] MEDS: FUROSEMIDE 20 MG TAB PO SCH (18:14)
[2019-02-02] MEDS: INSULIN GLARGINE [LANTus] (100 UNITS/ML) SYG SC SCH (19:46)
[2019-02-02] MEDS: ATORVASTATIN 20 MG TAB PO SCH (20:14)
--- NOTE | 2019-02-02 21:47 | RADRPT ---
Vent Rate: 92 bpm RR Interval: 652 msec OR Interval: 168 msec QRS Duration: 169 msec QT Interval: 428 msec QTC Interval: 530 msec P-R-T [place]: 84 - -74 - 88 degrees Sinus rhythm...normal P axis, V-rate 50- 99 Nonspecific IVCD with LAD...QRSd >115mS & LAD Left ventricular hypertrophy...multiple LVH criteria ST elevation secondary to IVCD...Multiple VCG criteria Prolonged QT interval...QTc >500mS Electronically Signed By: Anastacio Beebe
[2019-02-02] MEDS: ACETAMINOPHEN 650MG/20.3ML CUP NGT PRN (22:10)
[2019-02-03] VITALS (98 sets, daily range): BP systolic 68–126; BP diastolic 38–85; PULSE 56–85; RESP 10–25
[2019-02-03] MEDS: INSULIN ASPART [NOVOLOG] 3 ML PEN SC SCH ×6 (00:29→21:29)
[2019-02-03] MEDS: IPRATROPIUM (HFA) 12.9 GM INHALER INH SCH ×6 (01:20→20:00)
[2019-02-03] MEDS: DEXMEDETOMIDINE HCL 200 MCG in SOD CHLORIDE 0.9% 48 ML IV SCH ×4 (02:09→12:49)
[2019-02-03] MEDS: VANCOMYCIN 1 GM 250 ML IVPB SCH ×2 (02:09→14:58)
[2019-02-03] MEDS: ACETAMINOPHEN 650MG/20.3ML CUP NGT PRN (04:21)
[2019-02-03] MEDS: FENTAnyl (DRIP) 1000 mcg/100mL 100 ML IV SCH (04:24)
[2019-02-03] MEDS: FUROSEMIDE 20 MG TAB PO SCH (05:13)
[2019-02-03] MEDS: PROPOFOL 100 ML IV SCH ×3 (08:31→20:02)
[2019-02-03] MEDS: CEFEPIME 2GM/50 ML (PMX) 50 ML IVPB SCH ×2 (08:32→20:15)
[2019-02-03] MEDS: FAMOTIDINE 20 MG INJ IV SCH (08:32)
[2019-02-03] MEDS ORDERED: predniSONE 20 MG TAB PO SCH (09:00)
--- NOTE | 2019-02-03 10:52 | PN ---
Date/Time of Note Date/Time of Note DATE: 02/03/19 TIME: 10:46 Assessment/Plan VTE Prophylaxis Risk score (from [facility])>0 risk: 10 SCD applied (from [facility]): Yes Pharmacological prophylaxis: LMWH Lines/Catheters IV Catheter Type (from [facility]): Central Line Central line still needed: Yes Urinary Cath still in place: Yes Reason Cath still needed: urinary retention Assessment/Plan Hospital Course S: Patient still intubated, failed extubation trial this morning. Tolerating NG tube feeds. Still on Sebastien-Synephrine. O: VS- see below PE: Intubated, sedated Lungs clear anteriorly R sided chest tube in place RRR Soft nt nd Ext with mild edema, warm 2D echo January 29, 2019: Conclusions: Normal left ventricular cavity size. Normal left ventricular wall thickness. Mild left ventricular systolic dysfunction. Ejection fraction is visually estimated at 45 %. Abnormal Diastolic Function. Normal right ventricular size. Normal right ventricular systolic function. The left atrium is normal in size. The right atrium is normal in size. Normal appearance of the tricuspid valve. Estimated peak PA systolic pressure 67 mmHg. There is mild tricuspid regurgitation. No significant valvular stenosis or regurgitation seen of remaining visualized valves. Normal pericardium with no significant pericardial effusion. CT neck January 29, 2019: IMPRESSION: 1. Right laminectomies of C3 - C6 with internal fixation plate and screws. 2. Nondisplaced fractures of the C3 - C6 left lamina. 3. Small right pneumothorax with chest tube in place. 4. Bilateral subsegmental atelectasis involving the upper lobes . 5. Postsurgical edema and scar located in the midline of C2 - C6. A/P: 58 yo male with likely COPD and CHF though exact history unknown who presented with respiratory distress and hypercapnic respiratory failure. Was on BIPAP when decompensated and found to have pneumothorax, intubated and with R chest tube on admission. # Acute hypercapnic respiratory failure- likely from COPD per reports and res piratory acidosis - slowly improving, but again failed CPAP trial earlier today. -For now continue as needed Bronchodilators, tapering steroids, continue antibiotics -Monitor white blood cell (trending down now), continue mechanical ventilation per pulmonary -for another possible weaning trial later today # Pneumothorax: Found on chest x-ray 5 days ago, chest tube has been in place and was repositioned yesterday, patient again has some subcutaneous emphysema but based on the serial chest x-rays since then the pneumothorax appears to be slowly resolving now. -Monitor, follow-up further recommendations from CTS team for chest tube management -Also follow up pulmonary recommendations #Leukocytosis: trending down; no fevers. Patient is on steroids as well, which as mentioned above we tapering -Continue broad-spectrum antibiotics follow-up final culture results -Follow-up further recommendations from infectious disease consult #Hypertension/shock: Again on pressor support -Monitor, try to wean off pressor support as tolerated -Obviously holding patient's home blood pressure medicines for now # C-spine sx -occurred at outside hospital recently within the last one 1 week apparently -Again, awaiting medical records from [facility] for further investigate this since the patient was discharged from there 6 days ago after being treated there for C neck pathology and apparently had surgery there at that time on the cervical spine. -Monitor, follow-up recommendations from PT alejandra #History of CML: -We will resume patient's Gleevec #History of likely MIGEL and pulmonary hypertension: Again presently intubated -Monitor for now, holding off on restarting patient's home sildenafil because of patient's current hypotension #Paroxysmal A. fib: Takes Pradaxa at home. However patient has been in sinus rhythm -Monitor, will start Lovenox 1 mg/kg as we cannot crush the Pradaxa now to give to him Dispo: Further management pending clinical course Critical care time spent in patient care today equals 45 minutes. Result Diagram: 02/03/19 0500 02/03/19 0500 Results 24hrs Laboratory Tests Test 02/02/19 13:07 02/02/19 18:11 02/02/19 19:43 02/02/19 20:59 Bedside Glucose 202 243 H 274 H 253 H Test 02/03/19 00:28 02/03/19 04:43 02/03/19 05:00 02/03/19 08:30 Bedside Glucose 212 138 101 White Blood Count 9.2 # Red Blood Count 2.63 L Hemoglobin 8.5 L Hematocrit 26.4 L Mean Corpuscular 100.4 Volume Mean Corpuscular 32.3 Hemoglobin Mean Corpuscular 32.2 Hemoglobin Concent Red Cell 12.7 Distribution Width Platelet Count 232 Mean Platelet Volume 9.4 Immature 1.400 H Granulocytes % Neutrophils % 86.7 H Lymphocytes % 6.7 L Monocytes % 5.0 Eosinophils % 0.1 Basophils % 0.1 Nucleated Red Blood 0.4 H Cells % Immature 0.130 H Granulocytes # Neutrophils # 8.0 H Lymphocytes # 0.6 L Monocytes # 0.5 Eosinophils # 0.0 Basophils # 0.0 Nucleated Red Blood 0.0 Cells # Sodium Level 144 Potassium Level 4.0 Chloride Level 107 Carbon Dioxide Level 35 H Anion Gap 2 L Blood Urea Nitrogen 46 H Creatinine 0.94 Est Glomerular > 60 Filtrat Rate mL/min Glucose Level 125 Calcium Level 8.2 L Phosphorus Level 2.6 Magnesium Level 2.5 Exam/Review of Systems Exam Vitals Vital Signs Date Temp Pulse Resp B/P (MAP) Pulse Ox O2 O2 Flow FiO2 Time Delivery Rate 02/03/19 61 18 93/66 (75) 100 09:45 02/03/19 [place] 09:00 l Ventilato r 02/03/19 100.3 08:00 02/03/19 35 05:19 Intake and Output 02/02/19 02/02/19 02/03/19 1515:00 23:00 07:00 IntakeIntake Total 920.954 ml 979.150 ml 678.460 ml OutputOutput Total 455 ml 460 ml 455 ml BalanceBalance 465.954 ml 519.150 ml 223.460 ml Results Results 24hrs Laboratory Tests Test 02/02/19 13:07 02/02/19 18:11 02/02/19 19:43 02/02/19 20:59 Bedside Glucose 202 243 H 274 H 253 H Test 02/03/19 00:28 02/03/19 04:43 02/03/19 05:00 02/03/19 08:30 Bedside Glucose 212 138 101 White Blood Count 9.2 # Red Blood Count 2.63 L Hemoglobin 8.5 L Hematocrit 26.4 L Mean Corpuscular 100.4 Volume Mean Corpuscular 32.3 Hemoglobin Mean Corpuscular 32.2 Hemoglobin Concent Red Cell 12.7 Distribution Width Platelet Count 232 Mean Platelet Volume 9.4 Immature 1.400 H Granulocytes % Neutrophils % 86.7 H Lymphocytes % 6.7 L Monocytes % 5.0 Eosinophils % 0.1 Basophils % 0.1 Nucleated Red Blood 0.4 H Cells % Immature 0.130 H Granulocytes # Neutrophils # 8.0 H Lymphocytes # 0.6 L Monocytes # 0.5 Eosinophils # 0.0 Basophils # 0.0 Nucleated Red Blood 0.0 Cells # Sodium Level 144 Potassium Level 4.0 Chloride Level 107 Carbon Dioxide Level 35 H Anion Gap 2 L Blood Urea Nitrogen 46 H Creatinine 0.94 Est Glomerular > 60 Filtrat Rate mL/min Glucose Level 125 Calcium Level 8.2 L Phosphorus Level 2.6 Magnesium Level 2.5 Medications Medication Current Medications IV Flush (NS 3 ml) 3 ml PER PROTOCOL IV ; Start 01/29/19 at 19:30 Norepinephrine 250 ml @ 1.875 mls/ hr TITRATE IV Last administered on 01/30/19 11:09; Admin Dose 18.75 MLS/HR; Start 01/29/19 at 21:00 Fentanyl 100 ml @ 2.5 mls/hr TITRATE IV Last administered on 02/03/19 04:24; Admin Dose 5 MLS/HR; Start 01/29/19 at 21:00 Midazolam HCl 50 ml @ 1 mls/hr TITRATE IV Last administered on 01/30/19at 19:53; Admin Dose 10 MLS/HR; Start 01/29/19 at 21:00 Ipratropium [place] (Atrovent Hfa) 4 puff Q4H RESP THERAPY INH Last administered on 02/03/19 08:00; Admin Dose 4 PUFF; Start 01/29/19 at 21:28 Propofol 100 ml @ 2.964 mls/ hr Q12H IV Last administered on 02/03/19 08:31; Admin Dose 5.928 MLS/HR; Start 01/30/19 at 03:00 Albuterol (Ventolin Hfa) 4 puff Q4H RESP THERAPY PRN INH SHORTNESS OF BREATH; Start 01/30/19 at 11:00 Cefepime HCl 50 ml @ 100 mls/hr Q12 IVPB Last administered on 02/03/19 08:32; Admin Dose 100 MLS/HR; Start 01/30/19 at 12:30 Vancomycin HCl (Vanco Iv Per Pharmacy) VANCOMYCIN PER PHARMACY PER PROTOCOL XX ; Start 01/30/19 at 11:30 Atorvastatin Calcium (Lipitor) 20 mg QHS PO Last administered on 02/02/19at 20:14; Admin Dose 20 MG; Start 01/30/19 at 21:00 Miscellaneous Information 1 ea NOTE XX ; Start 01/30/19 at 15:00 Glucose (Glutose) 15 gm Q15M PRN PO DECREASED GLUCOSE; Start 01/30/19 at 15:00 Glucose (Glutose) 22.5 gm Q15M PRN PO DECREASED GLUCOSE; Start 01/30/19 at 15:00 Dextrose (D50w Syringe) 25 ml Q15M PRN IV DECREASED GLUCOSE; Start 01/30/19 at 15:00 Dextrose (D50w Syringe) 50 ml Q15M PRN IV DECREASED GLUCOSE; Start 01/30/19 at 15:00 Glucagon (Glucagen) 1 mg Q15M PRN IM DECREASED GLUCOSE; Start 01/30/19 at 15:00 Glucose (Glutose) 15 gm Q15M PRN BUCCAL DECREASED GLUCOSE; Start 01/30/19 at 15:00 Phenylephrine HCl 250 ml @ 75 mls/hr TITRATE IV Last administered on 02/02/19at 15:41; Admin Dose 7.5 MLS/HR; Start 01/30/19 at 21:30 Dexmedetomidine HCl 200 mcg/ Sodium Chloride 50 ml @ 4.94 mls/hr TITRATE IV Last administered on 02/03/19at 09:19; Admin Dose 17.29 MLS/HR; Start 02/01/19 at 09:30 Vancomycin HCl 250 ml @ 125 mls/hr Q12H IVPB Last administered on 02/03/19at 02:09; Admin Dose 125 MLS/HR; Start 02/02/19 at 03:00 Insulin Aspart (Novolog Insulin Pen) NOVOLOG *MODERATE* ALGORI... Q4 SC Last administered on 02/03/19at 00:29; Admin Dose 4 UNIT; Start 02/02/19 at 09:00 Famotidine (Pepcid Iv) 20 mg DAILY IV Last administered on 02/03/19at 08:32; Admin Dose 20 MG; Start 02/02/19 at 09:00 Furosemide (Lasix) 20 mg BID DIURETICS PO Last administered on 02/03/19at 05:13; Admin Dose 20 MG; Start 02/02/19 at 18:00 Insulin Glargine (Lantus) 16 units DAILY@2000 SC Last administered on 02/02/19at 19:46; Admin Dose 16 UNITS; Start 02/02/19 at 20:00 Prednisone (Prednisone) 40 mg DAILY PO Last administered on 02/03/19at 08:32; Admin Dose 40 MG; Start 02/03/19 at 09:00; Stop 02/04/19 at 11:55 Miscellaneous Information (*Rx Drug Level Order Reminder*) VANCO TR LEVEL PRIOR... ONCE ONCE XX ; Start 02/03/19 at 14:00; Stop 02/03/19 at 14:01 Acetaminophen (Tylenol Liquid) 650 mg Q4H PRN NGT MILD PAIN(1-3)OR ELEVATED TEMP Last administered on 02/03/19at 04:21; Admin Dose 650 MG; Start 02/02/19 at 20:30 Docusate Sodium (Colace) 100 mg BID PO ; Start 02/03/19 at 11:00 Trazodone HCl (Desyrel) 25 mg QHS PO ; Start 02/03/19 at 21:00 Miscellaneous Information 40 mg DAILY PO ; Start 02/03/19 at 11:00; Status UNDUSTY CULLEN February 03, 2019 10:52
--- NOTE | 2019-02-03 10:59 | CONS ---
Consult Date/Type/Reason Admit Date/Time January 29, 2019 at 18:27 Initial Consult Date 01/30/19 Type of Consult Pulmonary Requesting Provider: DUSTY VILLASENOR Date/Time of Note DATE: 02/03/19 TIME: 10:57 Subjective No significant changes. Continues mechanical ventilation. Failed CPAP trial this morning with significant diaphoresis. Objective Vital Signs Date Temp Pulse Resp B/P (MAP) Pulse Ox O2 O2 Flow FiO2 Time Delivery Rate 02/03/19 61 18 93/66 (75) 100 09:45 02/03/19 [place] 09:00 l Ventilato r 02/03/19 100.3 08:00 02/03/19 35 05:19 Intake and Output 02/02/19 02/02/19 02/03/19 1515:00 23:00 07:00 IntakeIntake Total 920.954 ml 979.150 ml 678.460 ml OutputOutput Total 455 ml 460 ml 455 ml BalanceBalance 465.954 ml 519.150 ml 223.460 ml Exam GENERAL: Obese elderly gentleman orally intubated on mechanical ventilation appears comfortable at rest VITAL SIGNS: per chart NECK: Supple. No JVD or lymphadenopathy. Significant subcutaneous emphysema noted. CARDIAC EXAM: S1, S2. No added sounds or murmurs. CHEST: Diminished air entry bilaterally ABDOMEN: Soft, nontender. No guarding or rebound. Obese soft nontender EXTREMITIES: No cyanosis, clubbing or edema. NEUROLOGIC: Generalized weakness. No focal deficits. Vent Setting Ventilator Support Mode: AC Fraction of Inspired Oxygen pe: 35 Positive End Expiratory Pressu: 5.0 Results/Medications Result Diagram: 02/03/19 0500 02/03/19 0500 Results 24 hrs Laboratory Tests Test 02/02/19 13:07 02/02/19 18:11 02/02/19 19:43 02/02/19 20:59 Bedside Glucose 202 243 H 274 H 253 H Test 02/03/19 00:28 02/03/19 04:43 02/03/19 05:00 02/03/19 08:30 Bedside Glucose 212 138 101 White Blood Count 9.2 # Red Blood Count 2.63 L Hemoglobin 8.5 L Hematocrit 26.4 L Mean Corpuscular 100.4 Volume Mean Corpuscular 32.3 Hemoglobin Mean Corpuscular 32.2 Hemoglobin Concent Red Cell 12.7 Distribution Width Platelet Count 232 Mean Platelet Volume 9.4 Immature 1.400 H Granulocytes % Neutrophils % 86.7 H Lymphocytes % 6.7 L Monocytes % 5.0 Eosinophils % 0.1 Basophils % 0.1 Nucleated Red Blood 0.4 H Cells % Immature 0.130 H Granulocytes # Neutrophils # 8.0 H Lymphocytes # 0.6 L Monocytes # 0.5 Eosinophils # 0.0 Basophils # 0.0 Nucleated Red Blood 0.0 Cells # Sodium Level 144 Potassium Level 4.0 Chloride Level 107 Carbon Dioxide Level 35 H Anion Gap 2 L Blood Urea Nitrogen 46 H Creatinine 0.94 Est Glomerular > 60 Filtrat Rate mL/min Glucose Level 125 Calcium Level 8.2 L Phosphorus Level 2.6 Magnesium Level 2.5 Medications Current Medications IV Flush (NS 3 ml) 3 ml PER PROTOCOL IV ; Start 01/29/19 at 19:30 Norepinephrine 250 ml @ 1.875 mls/ hr TITRATE IV Last administered on 01/30/19 11:09; Admin Dose 18.75 MLS/HR; Start 01/29/19 at 21:00 Fentanyl 100 ml @ 2.5 mls/hr TITRATE IV Last administered on 02/03/19 04:24; Admin Dose 5 MLS/HR; Start 01/29/19 at 21:00 Midazolam HCl 50 ml @ 1 mls/hr TITRATE IV Last administered on 01/30/19 19:53; Admin Dose 10 MLS/HR; Start 01/29/19 at 21:00 Ipratropium [place] (Atrovent Hfa) 4 puff Q4H RESP THERAPY INH Last administered on 02/03/19 08:00; Admin Dose 4 PUFF; Start 01/29/19 at 21:28 Propofol 100 ml @ 2.964 mls/ hr Q12H IV Last administered on 02/03/19 08:31; Admin Dose 5.928 MLS/HR; Start 01/30/19 at 03:00 Albuterol (Ventolin Hfa) 4 puff Q4H RESP THERAPY PRN INH SHORTNESS OF BREATH; Start 01/30/19 at 11:00 Cefepime HCl 50 ml @ 100 mls/hr Q12 IVPB Last administered on 02/03/19 08:32; Admin Dose 100 MLS/HR; Start 01/30/19 at 12:30 Vancomycin HCl (Vanco Iv Per Pharmacy) VANCOMYCIN PER PHARMACY PER PROTOCOL XX ; Start 01/30/19 at 11:30 Atorvastatin Calcium (Lipitor) 20 mg QHS PO Last administered on 02/02/19at 20:14; Admin Dose 20 MG; Start 01/30/19 at 21:00 Miscellaneous Information 1 ea NOTE XX ; Start 01/30/19 at 15:00 Glucose (Glutose) 15 gm Q15M PRN PO DECREASED GLUCOSE; Start 01/30/19 at 15:00 Glucose (Glutose) 22.5 gm Q15M PRN PO DECREASED GLUCOSE; Start 01/30/19 at 15:00 Dextrose (D50w Syringe) 25 ml Q15M PRN IV DECREASED GLUCOSE; Start 01/30/19 at 15:00 Dextrose (D50w Syringe) 50 ml Q15M PRN IV DECREASED GLUCOSE; Start 01/30/19 at 15:00 Glucagon (Glucagen) 1 mg Q15M PRN IM DECREASED GLUCOSE; Start 01/30/19 at 15:00 Glucose (Glutose) 15 gm Q15M PRN BUCCAL DECREASED GLUCOSE; Start 01/30/19 at 15:00 Phenylephrine HCl 250 ml @ 75 mls/hr TITRATE IV Last administered on 02/02/19at 15:41; Admin Dose 7.5 MLS/HR; Start 01/30/19 at 21:30 Dexmedetomidine HCl 200 mcg/ Sodium Chloride 50 ml @ 4.94 mls/hr TITRATE IV Last administered on 02/03/19at 09:19; Admin Dose 17.29 MLS/HR; Start 02/01/19 at 09:30 Vancomycin HCl 250 ml @ 125 mls/hr Q12H IVPB Last administered on 02/03/19at 02:09; Admin Dose 125 MLS/HR; Start 02/02/19 at 03:00 Insulin Aspart (Novolog Insulin Pen) NOVOLOG *MODERATE* ALGORI... Q4 SC Last administered on 02/03/19at 00:29; Admin Dose 4 UNIT; Start 02/02/19 at 09:00 Famotidine (Pepcid Iv) 20 mg DAILY IV Last administered on 02/03/19at 08:32; Admin Dose 20 MG; Start 02/02/19 at 09:00 Furosemide (Lasix) 20 mg BID DIURETICS PO Last administered on 02/03/19at 05:13; Admin Dose 20 MG; Start 02/02/19 at 18:00 Insulin Glargine (Lantus) 16 units DAILY@2000 SC Last administered on 02/02/19at 19:46; Admin Dose 16 UNITS; Start 02/02/19 at 20:00 Prednisone (Prednisone) 40 mg DAILY PO Last administered on 02/03/19at 08:32; Ad min Dose 40 MG; Start 02/03/19 at 09:00; Stop 02/04/19 at 11:55 Miscellaneous Information (*Rx Drug Level Order Reminder*) VANCO TR LEVEL PRIOR... ONCE ONCE XX ; Start 02/03/19 at 14:00; Stop 02/03/19 at 14:01 Acetaminophen (Tylenol Liquid) 650 mg Q4H PRN NGT MILD PAIN(1-3)OR ELEVATED TEMP Last administered on 02/03/19at 04:21; Admin Dose 650 MG; Start 02/02/19 at 20:30 Docusate Sodium (Colace) 100 mg BID PO ; Start 02/03/19 at 11:00 Trazodone HCl (Desyrel) 25 mg QHS PO ; Start 02/03/19 at 21:00 Miscellaneous Information 40 mg DAILY PO ; Start 02/03/19 at 11:00; Status UNV Dabigatran (PRADaxa) 150 mg Q12H PO ; Start 02/03/19 at 11:00; Status UNV Sildenafil Citrate (Viagra) 100 mg TID PRN PO FOR PULMONAREY HTN; Start 02/03/19 at 11:00; Status UNV Assessment/Plan Hospital Course (Demo Recall) IMPRESSION 1. Chronic obstructive pulmonary disease exacerbation. 2. Right pneumothorax, likely secondary to positive pressure ventilation. Still with persistent air leak. Significant subcutaneous emphysema noted. Chest tube was replaced yesterday. 3. Possible underlying bullous lung disease. 4. Morbid obesity. 5. Septic shock source unclear at present. 6. History of CML 7. History of obstructive sleep apnea, and pulmonary hypertension 8. History of substance abuse in the past. History of anxiety disorder. Plan 1. Steroids. Failed CPAP trial this morning. 2. Bronchodilators. 3. Antibiotics. 4. CT chest, noted. No significant bullous disease. Significant subcutaneous emphysema 5. Vasopressors as needed. 6. Deep vein thrombosis and gastrointestinal prophylaxis. 7. Resume anxiolytics psych medications Critical care time 40 minutes. Prognosis guarded. YESENIA ALCANTAR MD, [facility] February 03, 2019 10:59
[2019-02-03] MEDS ORDERED: SILDENAFIL 100 MG TAB PO PRN (11:00)
[2019-02-03] MEDS ORDERED: DABIGATRAN 150 MG CAP PO SCH (11:00)
[2019-02-03] MEDS ORDERED: NON-FORMULARY/PATIENT OWN MED (Lurasidone Hcl (Latuda) 40 MG) PO SCH (11:00)
[2019-02-03] MEDS ORDERED: DOCUSATE SODIUM 100 MG CAP PO SCH (11:00)
[2019-02-03] MEDS ORDERED: ENOXAPARIN 100 MG/ML SYG SC SCH (11:30)
[2019-02-03] MEDS: DOCUSATE SODIUM 10 MG/ML (10ML CUP) NGT SCH ×2 (12:49→20:15)
--- NOTE | 2019-02-03 12:51 | CONS ---
Assessment/Plan Assessment/Plan Hospital Course (Demo Recall) No acute changes overnight. Patient remains intubated in no distress. Spiked fever of 101 last night current sodium current temperature 100.3. WBC 9.2 H&H 8.5 and 26.4 platelets 232 neutrophils 86.7 BUN 46 creatinine 0.94 Microbiology: All cultures negative, sputum culture still pending Chest x-ray this morning revealed no changes Indwelling: Endotracheal tube NG tube Ferrera right chest tube, right femoral triple-lumen catheter Antimicrobials: Vancomycin, cefepime Physical examination: Obese well-developed middle-aged man who is intubated sedated in no distress. Head atraumatic normocephalic sclera nonicteric. Neck is supple chest rise symmetrical breath sounds diminished bases. Heart: S1-S2. Abdomen soft bowel sounds hypoactive. Extremities with bilateral trace edema Assessment: 1. S/p septic shock ? etiology Procalcitonin 0.63 2. Acute hypoxemic respiratory failure/COPD exacerbation 3. Right pneumothorax 4. History of recent C-spine surgery 5. Obesity 6. Persistent leukocytosis, patient is on IV steroids Plan: Clinically stable, WBC trending down, continue abx, vent per pulmonary repeat sputum culture as the first was never sent, repeat blood cultures, consider to change femoral line Consultation Date/Type/Reason Admit Date/Time January 29, 2019 at 18:27 Initial Consult Date 01/30/19 Type of Consult id Requesting Provider: DUSTY VILLASENOR Date/Time of Note DATE: 02/03/19 TIME: 12:49 Exam/Review of Systems Exam Vitals Vital Signs Date Temp Pulse Resp B/P (MAP) Pulse Ox O2 O2 Flow FiO2 Time Delivery Rate 02/03/19 61 18 100 40 11:30 02/03/19 93/66 (75) 09:45 02/03/19 [place] 09:00 l Ventilato r 02/03/19 100.3 08:00 Intake and Output 02/02/19 02/02/19 02/03/19 1515:00 23:00 07:00 IntakeIntake Total 920.954 ml 979.150 ml 728.460 ml OutputOutput Total 455 ml 460 ml 455 ml BalanceBalance 465.954 ml 519.150 ml 273.460 ml Results Result Diagram: 02/03/19 0500 02/03/19 0500 Results 24hrs Laboratory Tests Test 02/02/19 13:07 02/02/19 18:11 02/02/19 19:43 02/02/19 20:59 Bedside Glucose 202 243 H 274 H 253 H Test 02/03/19 00:28 02/03/19 04:43 02/03/19 05:00 02/03/19 08:30 Bedside Glucose 212 138 101 White Blood Count 9.2 # Red Blood Count 2.63 L Hemoglobin 8.5 L Hematocrit 26.4 L Mean Corpuscular 100.4 Volume Mean Corpuscular 32.3 Hemoglobin Mean Corpuscular 32.2 Hemoglobin Concent Red Cell 12.7 Distribution Width Platelet Count 232 Mean Platelet Volume 9.4 Immature 1.400 H Granulocytes % Neutrophils % 86.7 H Lymphocytes % 6.7 L Monocytes % 5.0 Eosinophils % 0.1 Basophils % 0.1 Nucleated Red Blood 0.4 H Cells % Immature 0.130 H Granulocytes # Neutrophils # 8.0 H Lymphocytes # 0.6 L Monocytes # 0.5 Eosinophils # 0.0 Basophils # 0.0 Nucleated Red Blood 0.0 Cells # Sodium Level 144 Potassium Level 4.0 Chloride Level 107 Carbon Dioxide Level 35 H Anion Gap 2 L Blood Urea Nitrogen 46 H Creatinine 0.94 Est Glomerular > 60 Filtrat Rate mL/min Glucose Level 125 Calcium Level 8.2 L Phosphorus Level 2.6 Magnesium Level 2.5 Medications Medication Current Medications IV Flush (NS 3 ml) 3 ml PER PROTOCOL IV ; Start 01/29/19 at 19:30 Norepinephrine 250 ml @ 1.875 mls/ hr TITRATE IV Last administered on 01/30/19at 11:09; Admin Dose 18.75 MLS/HR; Start 01/29/19 at 21:00 Fentanyl 100 ml @ 2.5 mls/hr TITRATE IV Last administered on 02/03/19 04:24; Admin Dose 5 MLS/HR; Start 01/29/19 at 21:00 Midazolam HCl 50 ml @ 1 mls/hr TITRATE IV Last administered on 01/30/19at 19:53; Admin Dose 10 MLS/HR; Start 01/29/19 at 21:00 Ipratropium [place] (Atrovent Hfa) 4 puff Q4H RESP THERAPY INH Last administered on 02/03/19 08:00; Admin Dose 4 PUFF; Start 01/29/19 at 21:28 Propofol 100 ml @ 2.964 mls/ hr Q12H IV Last administered on 02/03/19at 08:31; Admin Dose 5.928 MLS/HR; Start 01/30/19 at 03:00 Albuterol (Ventolin Hfa) 4 puff Q4H RESP THERAPY PRN INH SHORTNESS OF BREATH; Start 01/30/19 at 11:00 Cefepime HCl 50 ml @ 100 mls/hr Q12 IVPB Last administered on 02/03/19at 08:32; Admin Dose 100 MLS/HR; Start 01/30/19 at 12:30 Vancomycin HCl (Vanco Iv Per Pharmacy) VANCOMYCIN PER PHARMACY PER PROTOCOL XX ; Start 01/30/19 at 11:30 Miscellaneous Information 1 ea NOTE XX ; Start 01/30/19 at 15:00 Glucose (Glutose) 15 gm Q15M PRN PO DECREASED GLUCOSE; Start 01/30/19 at 15:00 Glucose (Glutose) 22.5 gm Q15M PRN PO DECREASED GLUCOSE; Start 01/30/19 at 15:00 Dextrose (D50w Syringe) 25 ml Q15M PRN IV DECREASED GLUCOSE; Start 01/30/19 at 15:00 Dextrose (D50w Syringe) 50 ml Q15M PRN IV DECREASED GLUCOSE; Start 01/30/19 at 15:00 Glucagon (Glucagen) 1 mg Q15M PRN IM DECREASED GLUCOSE; Start 01/30/19 at 15:00 Glucose (Glutose) 15 gm Q15M PRN BUCCAL DECREASED GLUCOSE; Start 01/30/19 at 15:00 Phenylephrine HCl 250 ml @ 75 mls/hr TITRATE IV Last administered on 02/02/19at 15:41; Admin Dose 7.5 MLS/HR; Start 01/30/19 at 21:30 Dexmedetomidine HCl 200 mcg/ Sodium Chloride 50 ml @ 4.94 mls/hr TITRATE IV Last administered on 02/03/19at 09:19; Admin Dose 17.29 MLS/HR; Start 02/01/19 at 09:30 Vancomycin HCl 250 ml @ 125 mls/hr Q12H IVPB Last administered on 02/03/19at 02:09; Admin Dose 125 MLS/HR; Start 02/02/19 at 03:00 Insulin Aspart (Novolog Insulin Pen) NOVOLOG *MODERATE* ALGORI... Q4 SC Last administered on 02/03/19at 00:29; Admin Dose 4 UNIT; Start 02/02/19 at 09:00 Famotidine (Pepcid Iv) 20 mg DAILY IV Last administered on 02/03/19at 08:32; Admin Dose 20 MG; Start 02/02/19 at 09:00 Insulin Glargine (Lantus) 16 units DAILY@2000 SC Last administered on 02/02/19at 19:46; Admin Dose 16 UNITS; Start 02/02/19 at 20:00 Miscellaneous Information (*Rx Drug Level Order Reminder*) VANCO TR LEVEL PRIOR... ONCE ONCE XX ; Start 02/03/19 at 14:00; Stop 02/03/19 at 14:01 Acetaminophen (Tylenol Liquid) 650 mg Q4H PRN NGT MILD PAIN(1-3)OR ELEVATED TEMP Last administered on 02/03/19at 04:21; Admin Dose 650 MG; Start 02/02/19 at 20:30 Furosemide (Lasix) 20 mg BID DIURETICS NGT ; Start 02/03/19 at 18:00 Prednisone (Prednisone) 40 mg DAILY NGT ; Start 02/04/19 at 09:00 Trazodone HCl (Desyrel) 25 mg QHS NGT ; Start 02/03/19 at 21:00 Miscellaneous Information 40 mg DAILY NGT ; Start 02/04/19 at 09:00; Status UNV Atorvastatin Calcium (Lipitor) 20 mg HS NGT ; Start 02/03/19 at 21:00 Docusate Sodium (Colace Liquid Cup) 100 mg BID NGT ; Start 02/03/19 at 11:00 Enoxaparin Sodium (Lovenox) 100 mg Q12H SC ; Start 02/03/19 at 11:30 MARIO ALMANZA NP February 03, 2019 12:51
[2019-02-03] MEDS: ENOXAPARIN 100 MG/ML SYG SC SCH ×2 (12:54→23:32)
--- NOTE | 2019-02-03 16:16 | PN ---
Date/Time of Note Date/Time of Note DATE: 02/03/19 TIME: 16:15 Assessment/Plan Lines/Catheters IV Catheter Type (from Nrsg): Central Line Ferrera in Place (from Nrsg): Yes Assessment/Plan Assessment/Plan Right pneumothorax Pulmonary hypertension Status post chest tube placement Thorax mostly resolved Pt with the right-sided pneumothorax and subcutaneous emphysema We will continue chest tube suction Support Subjective 24 Hr Interval Summary Constitutional: improved Pain Control: mild Exam/Review of Systems Vital Signs Vitals Vital Signs Date Temp Pulse Resp B/P (MAP) Pulse Ox O2 O2 Flow FiO2 Time Delivery Rate 02/03/19 60 18 83/55 (64) 100 15:45 02/03/19 Mechanical 15:00 Ventilator 02/03/19 99.3 12:00 02/03/19 40 11:30 Intake and Output 02/02/19 02/02/19 02/03/19 1515:00 23:00 07:00 IntakeIntake Total 920.954 ml 979.150 ml 792.962 ml OutputOutput Total 455 ml 460 ml 455 ml BalanceBalance 465.954 ml 519.150 ml 337.962 ml Exam Head: normocephalic, atraumatic Eyes: nl conjunctiva, EOMI, nl lids, nl sclera ENMT: nl external ears & nose, nl lips & teeth, nl nasal mucosa & septum, mucosa pink and moist Neck: supple, non-tender Respiratory: clear to auscultation, normal air movement Cardiovascular: regular rate and rhythm, nl pulses Gastrointestinal: soft, nl liver, spleen, non-tender Results Result Diagram: 02/03/19 0500 02/03/19 0500 GAYLA BURLESON MD February 03, 2019 16:16
[2019-02-03] MEDS: FUROSEMIDE 20 MG TAB NGT SCH (18:13)
[2019-02-03] MEDS: PHENYLephrine 20MG IN 250 ML 250 ML IV SCH (18:33)
[2019-02-03] MEDS: INSULIN GLARGINE [LANTus] (100 UNITS/ML) SYG SC SCH (19:38)
[2019-02-03] MEDS: traZODone 50 MG TAB NGT SCH (20:15)
[2019-02-03] MEDS: ATORVASTATIN 20 MG TAB NGT SCH (20:16)
[2019-02-03] MEDS ORDERED: traZODone 50 MG TAB PO SCH (21:00)
[2019-02-04] VITALS (101 sets, daily range): BP systolic 71–147; BP diastolic 44–103; PULSE 46–129; RESP 13–23
[2019-02-04] MEDS: INSULIN ASPART [NOVOLOG] 3 ML PEN SC SCH ×6 (01:06→21:09)
[2019-02-04] MEDS: PROPOFOL 100 ML IV SCH ×6 (01:08→23:26)
[2019-02-04] MEDS: IPRATROPIUM (HFA) 12.9 GM INHALER INH SCH ×6 (01:21→21:35)
[2019-02-04] MEDS: VANCOMYCIN HCL 1.25 GM in SOD CHLORIDE 0.9% 250 ML IVPB SCH (01:50)
[2019-02-04] MEDS: FENTAnyl (DRIP) 1000 mcg/100mL 100 ML IV SCH ×2 (01:58→23:29)
[2019-02-04] MEDS: PHENYLephrine 20MG IN 250 ML 250 ML IV SCH ×5 (05:05→23:29)
[2019-02-04] MEDS: FUROSEMIDE 20 MG TAB NGT SCH ×2 (05:38→18:39)
--- NOTE | 2019-02-04 08:29 | CONS ---
Assessment/Plan Assessment/Plan Assessment/Plan (Daily) Ventilator setting; AC of 18, tidal volume 600, PEEP of 5, 30% FiO2. Patient is currently on phenylephrine drip at 70 mics per minute, propofol 30 mics per kilogram per minute, fentanyl 50 mics per hour. Assessment and recommendations; 1. Patient admitted with respiratory failure due to underlying severe COPD with resulting right pneumothorax requiring chest tube placement. 2. Diffuse generalized subcutaneous emphysema 3. History of pulmonary hypertension 4. Likely chronic type II respiratory failure as well. 5. Underlying severe anxiety disorder. 6. Possibly superimposed pneumonia. Currently on appropriate antimicrobial regimen. 7. History of CML. 8. History of drug abuse. 9. Diabetes. 10. Likely underlying sleep apnea. 11. Mild hypotension. Continue current supportive care. Patient failed a CPAP trial at bedside again this morning with a rapid O2 desaturation within minutes. Patient possibly may require a tracheostomy. 35 minutes of critical care time was spent evaluating the patient. Consultation Date/Type/Reason Admit Date/Time January 29, 2019 at 18:27 Initial Consult Date 01/30/19 Type of Consult Pulmonary/critical care Reason for Consultation Patient's condition remains critical. Has failed multiple weaning trials from ventilator. Patient however has remained mildly hypotensive requiring phenylephrine. General exam; middle-aged male, morbidly obese, orally intubated, awake and appropriately responsive. Currently in no distress. Requesting Provider: DUSTY VILLASENOR Date/Time of Note DATE: 02/04/19 TIME: 08:25 Exam/Review of Systems Exam Vitals Vital Signs Date Temp Pulse Resp B/P (MAP) Pulse Ox O2 O2 Flow FiO2 Time Delivery Rate 02/04/19 75 21 94/53 (67) 99 06:15 02/04/19 Mechanical 06:00 Ventilator 02/04/19 30 04:45 02/04/19 99.3 04:00 Intake and Output 02/03/19 02/03/19 02/04/19 1515:00 23:00 07:00 IntakeIntake Total 808.932 ml 775.538 ml 1122.238 ml OutputOutput Total 375 ml 815 ml 335 ml BalanceBalance 433.932 ml -39.462 ml 787.238 ml Exam H EENT exam; supple neck, no JVD. No lymphadenopathy. Midline trachea. No thyromegaly. Orally intubated. Patient has fair dentition. No neck masses. Pupils are small bilaterally. Chest exam; diminished breath sounds bilaterally bilateral chest mckenzie obtain his emphysema. Right-sided chest tube in place. S1-S2 audible, no murmurs. Regular rhythm. Abdomen exam; protuberant. Abdominal wall serpiginous emphysema is present as well. Bowel sounds are audible. No organomegaly. Extremity exam; no peripheral edema. Pulses 1+. Some cutaneous emphysema involving lower extremities as well bilaterally. HEARING AIDE TECHNICIAN exam; patient awake and appropriately responsive. Results Result Diagram: 02/04/19 0457 02/04/19 0434 Results 24hrs Laboratory Tests Test 02/03/19 08:30 02/03/19 12:53 02/03/19 13:56 02/03/19 18:09 Bedside Glucose 101 174 229 H Vancomycin Level 19.6 Trough Test 02/03/19 19:37 02/03/19 21:27 02/04/19 01:00 02/04/19 04:34 Bedside Glucose 228 H 218 192 Sodium Level 142 Potassium Level 3.8 Chloride Level 103 Carbon Dioxide Level 35 H Anion Gap 4 L Blood Urea Nitrogen 45 H Creatinine 0.72 Est Glomerular > 60 Filtrat Rate mL/min Glucose Level 145 Calcium Level 8.1 L Phosphorus Level 3.3 Magnesium Level 2.6 H Test 02/04/19 04:53 02/04/19 04:57 Bedside Glucose 158 White Blood Count 11.5 #H Red Blood Count 2.78 L Hemoglobin 9.0 L Hematocrit 28.0 L Mean Corpuscular 100.7 Volume Mean Corpuscular 32.4 Hemoglobin Mean Corpuscular 32.1 Hemoglobin Concent Red Cell 12.5 Distribution Width Platelet Count 265 Mean Platelet Volume 9.7 Immature 2.000 H Granulocytes % Neutrophils % 85.2 H Lymphocytes % 7.2 L Monocytes % 4.2 Eosinophils % 1.1 Basophils % 0.3 Nucleated Red Blood 0.4 H Cells % Immature 0.230 H Granulocytes # Neutrophils # 9.8 H Lymphocytes # 0.8 Monocytes # 0.5 Eosinophils # 0.1 Basophils # 0.0 Nucleated Red Blood 0.1 H Cells # Medications Medication Current Medications IV Flush (NS 3 ml) 3 ml PER PROTOCOL IV ; Start 01/29/19 at 19:30 Norepinephrine 250 ml @ 1.875 mls/ hr TITRATE IV Last administered on 01/30/19at 11:09; Admin Dose 18.75 MLS/HR; Start 01/29/19 at 21:00 Fentanyl 100 ml @ 2.5 mls/hr TITRATE IV Last administered on 02/04/19at 01:58; Admin Dose 5 MLS/HR; Start 01/29/19 at 21:00 Midazolam HCl 50 ml @ 1 mls/hr TITRATE IV Last administered on 01/30/19at 19:53; Admin Dose 10 MLS/HR; Start 01/29/19 at 21:00 Ipratropium [place] (Atrovent Hfa) 4 puff Q4H RESP THERAPY INH Last administered on 02/04/19 04:18; Admin Dose 4 PUFF; Start 01/29/19 at 21:28 Propofol 100 ml @ 2.964 mls/ hr Q12H IV Last administered on 02/04/19 05:09; Admin Dose 17.784 MLS/HR; Start 01/30/19 at 03:00 Albuterol (Ventolin Hfa) 4 puff Q4H RESP THERAPY PRN INH SHORTNESS OF BREATH; Start 01/30/19 at 11:00 Cefepime HCl 50 ml @ 100 mls/hr Q12 IVPB Last administered on 02/03/19at 20:15; Admin Dose 100 MLS/HR; Start 01/30/19 at 12:30 Vancomycin HCl (Vanco Iv Per Pharmacy) VANCOMYCIN PER PHARMACY PER PROTOCOL XX ; Start 01/30/19 at 11:30 Miscellaneous Information 1 ea NOTE XX ; Start 01/30/19 at 15:00 Glucose (Glutose) 15 gm Q15M PRN PO DECREASED GLUCOSE; Start 01/30/19 at 15:00 Glucose (Glutose) 22.5 gm Q15M PRN PO DECREASED GLUCOSE; Start 01/30/19 at 15:00 Dextrose (D50w Syringe) 25 ml Q15M PRN IV DECREASED GLUCOSE; Start 01/30/19 at 15:00 Dextrose (D50w Syringe) 50 ml Q15M PRN IV DECREASED GLUCOSE; Start 01/30/19 at 15:00 Glucagon (Glucagen) 1 mg Q15M PRN IM DECREASED GLUCOSE; Start 01/30/19 at 15:00 Glucose (Glutose) 15 gm Q15M PRN BUCCAL DECREASED GLUCOSE; Start 01/30/19 at 15:00 Insulin Aspart (Novolog Insulin Pen) NOVOLOG *MODERATE* ALGORI... Q4 SC Last administered on 02/04/19 04:55; Admin Dose 2 UNIT; Start 02/02/19 at 09:00 Famotidine (Pepcid Iv) 20 mg DAILY IV Last administered on 02/03/19 08:32; Admin Dose 20 MG; Start 02/02/19 at 09:00 Insulin Glargine (Lantus) 16 units DAILY@2000 SC Last administered on 02/03/19 19:38; Admin Dose 16 UNITS; Start 02/02/19 at 20:00 Acetaminophen (Tylenol Liquid) 650 mg Q4H PRN NGT MILD PAIN(1-3)OR ELEVATED TEMP Last administered on 02/03/19 04:21; Admin Dose 650 MG; Start 02/02/19 at 20:30 Furosemide (Lasix) 20 mg BID DIURETICS NGT Last administered on 02/04/19 05:38; Admin Dose 20 MG; Start 02/03/19 at 18:00 Prednisone (Prednisone) 40 mg DAILY NGT ; Start 02/04/19 at 09:00 Trazodone HCl (Desyrel) 25 mg QHS NGT Last administered on 02/03/19 20:15; Admin Dose 25 MG; Start 02/03/19 at 21:00 Atorvastatin Calcium (Lipitor) 20 mg HS NGT Last administered on 02/03/19 20:16; Admin Dose 20 MG; Start 02/03/19 at 21:00 Docusate Sodium (Colace Liquid Cup) 100 mg BID NGT Last administered on 02/03/19 20:15; Admin Dose 100 MG; Start 02/03/19 at 11:00 Enoxaparin Sodium (Lovenox) 100 mg Q12H SC Last administered on 02/03/19 23:32; Admin Dose 100 MG; Start 02/03/19 at 11:30 Vancomycin HCl 1.25 gm/Sodium Chloride 250 ml @ 83.333 mls/ hr Q24H IVPB Last administered on 02/04/19 01:50; Admin Dose 83.333 MLS/HR; Start 02/04/19 at 02:00 Phenylephrine HCl 250 ml @ 75 mls/hr TITRATE IV Last administered on 5/25/19at 05:05; Admin Dose 26.25 MLS/HR; Start 02/03/19 at 18:30 CATIA CALVO February 04, 2019 08:29
[2019-02-04] MEDS: CEFEPIME 2GM/50 ML (PMX) 50 ML IVPB SCH ×2 (08:47→21:12)
[2019-02-04] MEDS: DOCUSATE SODIUM 10 MG/ML (10ML CUP) NGT SCH ×2 (08:47→21:02)
[2019-02-04] MEDS: FAMOTIDINE 20 MG INJ IV SCH (08:51)
[2019-02-04] MEDS ORDERED: predniSONE 20 MG TAB NGT SCH (09:00)
[2019-02-04] MEDS ORDERED: NON-FORMULARY/PATIENT OWN MED (Lurasidone Hcl (Latuda) 40 MG) NGT SCH (09:00)
--- NOTE | 2019-02-04 11:22 | PN ---
Date/Time of Note Date/Time of Note DATE: 02/04/19 TIME: 11:06 Assessment/Plan VTE Prophylaxis [place] [facility] [place]: 9 [place]CD applied [place] [facility] [place] Yes Pharmacological prophylaxis: LMWH Lines/Catheters IV [facility]ter Type (from [facility]): Central Line Central line still needed: Yes Urinary Cath still in place: Yes Reason Cath still needed: urinary retention Assessment/Plan Hospital Course S: Patient still intubated, failed extubation trial yesterday and today as well, still on pressor support. O: VS- see below PE: Intubated, sedated Lungs clear anteriorly R sided chest tube in place RRR Soft nt nd Ext with mild edema, warm 2D echo January 29, 2019: Conclusions: Normal left ventricular cavity size. Normal left ventricular wall thickness. Mild left ventricular systolic dysfunction. Ejection fraction is visually estimated at 45 %. Abnormal Diastolic Function. Normal right ventricular size. Normal right ventricular systolic function. The left atrium is normal in size. The right atrium is normal in size. Normal appearance of the tricuspid valve. Estimated peak PA systolic pressure 67 mmHg. There is mild tricuspid regurgitation. No significant valvular stenosis or regurgitation seen of remaining visualized valves. Normal pericardium with no significant pericardial effusion. CT neck January 29, 2019: IMPRESSION: 1. Right laminectomies of C3 - C6 with internal fixation plate and screws. 2. Nondisplaced fractures of the C3 - C6 left lamina. 3. Small right pneumothorax with chest tube in place. 4. Bilateral subsegmental atelectasis involving the upper lobes . 5. Postsurgical edema and scar located in the midline of C2 - C6. A/P: 58 yo male with likely COPD and CHF though exact history unknown who presented with respiratory distress and hypercapnic respiratory failure. Was on BIPAP when decompensated and found to have pneumothorax, intubated and with R chest tube on admission. # Acute hypercapnic respiratory failure- likely from COPD per reports and respiratory acidosis - slowly improving, but again failed CPAP trial yesterday and today. -For now continue as needed Bronchodilators, tapering steroids, continue antibiotics -Monitor white blood cell (trending down now), continue mechanical ventilation per pulmonary - for another possible weaning trial later today # Pneumothorax: Found on chest x-ray 6 days ago, chest tube has been in place and was repositioned 2 days ago, patient again has some subcutaneous emphysema but based on the serial chest x-rays since then the pneumothorax appears to have resolved now. -Monitor, follow-up further recommendations from CTS team for chest tube management -Also follow up pulmonary recommendations #Leukocytosis: trending down; no fevers. Patient is on steroids as well, which as mentioned above we tapering -Continue broad-spectrum antibiotics follow-up final culture results -Follow-up further recommendations from infectious disease consult #Hypertension/shock: Again on pressor support -Monitor, try to wean off pressor support as tolerated -Obviously holding patient's home blood pressure medicines for now # C-spine sx -occurred at outside hospital recently within the last one 1 week apparently -Again, awaiting medical records from [facility] for further investigate this since the patient was discharged from there 6 days ago after being treated there for C neck pathology and apparently had surgery there at that time on the cervical spine. 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 fib: Takes Pradaxa at home. However patient has been in sinus rhythm -Monitor, continue Lovenox 1 mg/kg as we cannot crush the Pradaxa now to give to him Dispo: Further management pending clinical course Critical care time spent in patient care today equals 45 minutes. Result Diagram: 02/04/19 0457 02/04/19 0434 Results 24hrs Laboratory Tests Test 02/03/19 12:53 02/03/19 13:56 02/03/19 18:09 02/03/19 19:37 Bedside Glucose 174 229 H 228 H Vancomycin Level 19.6 Trough Test 02/03/19 21:27 02/04/19 01:00 02/04/19 04:34 02/04/19 04:53 Bedside Glucose 218 192 158 Sodium Level 142 Potassium Level 3.8 Chloride Level 103 Carbon Dioxide Level 35 H Anion Gap 4 L Blood Urea Nitrogen 45 H Creatinine 0.72 Est Glomerular > 60 Filtrat Rate mL/min Glucose Level 145 Calcium Level 8.1 L Phosphorus Level 3.3 Magnesium Level 2.6 H Test 02/04/19 04:57 02/04/19 08:44 White Blood Count 11.5 #H Red Blood Count 2.78 L Hemoglobin 9.0 L Hematocrit 28.0 L Mean Corpuscular 100.7 Volume Mean Corpuscular 32.4 Hemoglobin Mean Corpuscular 32.1 Hemoglobin Concent Red Cell 12.5 Distribution Width Platelet Count 265 Mean Platelet Volume 9.7 Immature 2.000 H Granulocytes % Neutrophils % 85.2 H Lymphocytes % 7.2 L Monocytes % 4.2 Eosinophils % 1.1 Basophils % 0.3 Nucleated Red Blood 0.4 H Cells % Immature 0.230 H Granulocytes # Neutrophils # 9.8 H Lymphocytes # 0.8 Monocytes # 0.5 Eosinophils # 0.1 Basophils # 0.0 Nucleated Red Blood 0.1 H Cells # Bedside Glucose 161 Exam/Review of Systems Exam Vitals Vital Signs Date Temp Pulse Resp B/P (MAP) Pulse Ox O2 O2 Flow FiO2 Time Delivery Rate 02/04/19 103 18 122/85 98 10:45 (97) 02/04/19 Mechanical 10:00 Ventilator 02/04/19 30 09:50 02/04/19 99.5 08:00 Intake and Output 02/03/19 02/03/19 02/04/19 1515:00 23:00 07:00 IntakeIntake Total 808.932 ml 775.538 ml 1122.238 ml OutputOutput Total 375 ml 815 ml 335 ml BalanceBalance 433.932 ml -39.462 ml 787.238 ml Results Results 24hrs Laboratory Tests Test 02/03/19 12:53 02/03/19 13:56 02/03/19 18:09 02/03/19 19:37 Bedside Glucose 174 229 H 228 H Vancomycin Level 19.6 Trough Test 02/03/19 21:27 02/04/19 01:00 02/04/19 04:34 02/04/19 04:53 Bedside Glucose 218 192 158 Sodium Level 142 Potassium Level 3.8 Chloride Level 103 Carbon Dioxide Level 35 H Anion Gap 4 L Blood Urea Nitrogen 45 H Creatinine 0.72 Est Glomerular > 60 Filtrat Rate mL/min Glucose Level 145 Calcium Level 8.1 L Phosphorus Level 3.3 Magnesium Level 2.6 H Test 02/04/19 04:57 02/04/19 08:44 White Blood Count 11.5 #H Red Blood Count 2.78 L Hemoglobin 9.0 L Hematocrit 28.0 L Mean Corpuscular 100.7 Volume Mean Corpuscular 32.4 Hemoglobin Mean Corpuscular 32.1 Hemoglobin Concent Red Cell 12.5 Distribution Width Platelet Count 265 Mean Platelet Volume 9.7 Immature 2.000 H Granulocytes % Neutrophils % 85.2 H Lymphocytes % 7.2 L Monocytes % 4.2 Eosinophils % 1.1 Basophils % 0.3 Nucleated Red Blood 0.4 H Cells % Immature 0.230 H Granulocytes # Neutrophils # 9.8 H Lymphocytes # 0.8 Monocytes # 0.5 Eosinophils # 0.1 Basophils # 0.0 Nucleated Red Blood 0.1 H Cells # Bedside Glucose 161 Medications Medication Current Medications IV Flush (NS 3 ml) 3 ml PER PROTOCOL IV ; Start 01/29/19 at 19:30 Norepinephrine 250 ml @ 1.875 mls/ hr TITRATE IV Last administered on 01/30/19 11:09; Admin Dose 18.75 MLS/HR; Start 01/29/19 at 21:00 Fentanyl 100 ml @ 2.5 mls/hr TITRATE IV Last administered on 02/04/19 01:58; Admin Dose 5 MLS/HR; Start 01/29/19 at 21:00 Midazolam HCl 50 ml @ 1 mls/hr TITRATE IV Last administered on 01/30/19 19:53; Admin Dose 10 MLS/HR; Start 01/29/19 at 21:00 Ipratropium [place] (Atrovent Hfa) 4 puff Q4H RESP THERAPY INH Last administered on 02/04/19 09:50; Admin Dose 4 PUFF; Start 01/29/19 at 21:28 Propofol 100 ml @ 2.964 mls/ hr Q12H IV Last administered on 02/04/19 08:24; Admin Dose 17.784 MLS/HR; Start 01/30/19 at 03:00 Albuterol (Ventolin Hfa) 4 puff Q4H RESP THERAPY PRN INH SHORTNESS OF BREATH; Start 01/30/19 at 11:00 Cefepime HCl 50 ml @ 100 mls/hr Q12 IVPB Last administered on 02/04/19 08:47; Admin Dose 100 MLS/HR; Start 01/30/19 at 12:30 Vancomycin HCl (Vanco Iv Per Pharmacy) VANCOMYCIN PER PHARMACY PER PROTOCOL XX ; Start 01/30/19 at 11:30 Miscellaneous Information 1 ea NOTE XX ; Start 01/30/19 at 15:00 Glucose (Glutose) 15 gm Q15M PRN PO DECREASED GLUCOSE; Start 01/30/19 at 15:00 Glucose (Glutose) 22.5 gm Q15M PRN PO DECREASED GLUCOSE; Start 01/30/19 at 15:00 Dextrose (D50w Syringe) 25 ml Q15M PRN IV DECREASED GLUCOSE; Start 01/30/19 at 15:00 Dextrose (D50w Syringe) 50 ml Q15M PRN IV DECREASED GLUCOSE; Start 01/30/19 at 15:00 Glucagon (Glucagen) 1 mg Q15M PRN IM DECREASED GLUCOSE; Start 01/30/19 at 15:00 Glucose (Glutose) 15 gm Q15M PRN BUCCAL DECREASED GLUCOSE; Start 01/30/19 at 15:00 Insulin Aspart (Novolog Insulin Pen) NOVOLOG *MODERATE* ALGORI... Q4 SC Last administered on 02/04/19 08:52; Admin Dose 2 UNIT; Start 02/02/19 at 09:00 Famotidine (Pepcid Iv) 20 mg DAILY IV Last administered on 02/04/19 08:51; Admin Dose 20 MG; Start 02/02/19 at 09:00 Insulin Glargine (Lantus) 16 units DAILY@2000 SC Last administered on 02/03/19 19:38; Admin Dose 16 UNITS; Start 02/02/19 at 20:00 Acetaminophen (Tylenol Liquid) 650 mg Q4H PRN NGT MILD PAIN(1-3)OR ELEVATED TEMP Last administered on 02/03/19 04:21; Admin Dose 650 MG; Start 02/02/19 at 20:30 Furosemide (Lasix) 20 mg BID DIURETICS NGT Last administered on 02/04/19 05:38; Admin Dose 20 MG; Start 02/03/19 at 18:00 Prednisone (Prednisone) 40 mg DAILY NGT Last administered on 02/04/19 08:47; Admin Dose 40 MG; Start 02/04/19 at 09:00 Trazodone HCl (Desyrel) 25 mg QHS NGT Last administered on 02/03/19at 20:15; Admin Dose 25 MG; Start 02/03/19 at 21:00 Atorvastatin Calcium (Lipitor) 20 mg HS NGT Last administered on 02/03/19 20:16; Admin Dose 20 MG; Start 02/03/19 at 21:00 Docusate Sodium (Colace Liquid Cup) 100 mg BID NGT Last administered on 02/04/19 08:47; Admin Dose 100 MG; Start 02/03/19 at 11:00 Enoxaparin Sodium (Lovenox) 100 mg Q12H SC Last administered on 02/03/19at 23:32; Admin Dose 100 MG; Start 02/03/19 at 11:30 Vancomycin HCl 1.25 gm/Sodium Chloride 250 ml @ 83.333 mls/ hr Q24H IVPB Last administered on 02/04/19 01:50; Admin Dose 83.333 MLS/HR; Start 02/04/19 at 02:00 Phenylephrine HCl 250 ml @ 75 mls/hr TITRATE IV Last administered on 02/04/19 10:22; Admin Dose 52.5 MLS/HR; Start 02/03/19 at 18:30 DUSTY VILLASENOR February 04, 2019 11:18
[2019-02-04] MEDS ORDERED: LORAZEPAM 2 MG INJ IV PRN (11:30)
[2019-02-04] MEDS ORDERED: predniSONE 20 MG TAB PO ONE (11:30)
[2019-02-04] MEDS ORDERED: IMATINIB 100 MG PO SCH (12:00)
[2019-02-04] MEDS: ENOXAPARIN 100 MG/ML SYG SC SCH ×2 (13:30→23:28)
[2019-02-04] MEDS ORDERED: IMATINIB 400 MG TAB PO SCH (14:00)
--- NOTE | 2019-02-04 15:09 | PN ---
Date/Time of Note Date/Time of Note DATE: 02/04/19 TIME: 15:07 Assessment/Plan Lines/Catheters IV Catheter Type (from Nrsg): Central Line Ferrera in Place (from Nrsg): Yes Assessment/Plan Assessment/Plan Right pneumothorax Status post chest tube placement Chest tube readjusted Chest x-ray with subcutaneous emphysema but no definitive pneumothorax Continue clamp chest tube Repeat chest x-ray Subjective 24 Hr Interval Summary Constitutional: improved Pain Control: mild Exam/Review of Systems Vital Signs Vitals Vital Signs Date Temp Pulse Resp B/P (MAP) Pulse Ox O2 O2 Flow FiO2 Time Delivery Rate 02/04/19 57 18 102/64 100 Mechanical 14:00 (77) Ventilator 02/04/19 30 13:30 02/04/19 98.1 12:00 Intake and Output 02/03/19 02/03/19 02/04/19 1515:00 23:00 07:00 IntakeIntake Total 808.932 ml 775.538 ml 1122.238 ml OutputOutput Total 375 ml 815 ml 335 ml BalanceBalance 433.932 ml -39.462 ml 787.238 ml Exam Head: normocephalic, atraumatic Eyes: nl conjunctiva, EOMI, nl lids, nl sclera ENMT: nl external ears & nose, nl lips & teeth, nl nasal mucosa & septum, mucosa pink and moist Neck: supple, non-tender Respiratory: clear to auscultation, normal air movement Cardiovascular: regular rate and rhythm, nl pulses Gastrointestinal: soft, nl liver, spleen, non-tender Musculoskeletal: nl extremities to inspection, nl gait and stance Results Result Diagram: 02/04/19 0457 02/04/19 0434 GAYLA BURLESON MD February 04, 2019 15:08
--- NOTE | 2019-02-04 16:40 | CONS ---
Assessment/Plan Assessment/Plan Hospital Course (Demo Recall) ID PROGRESS NOTE CURRENT ABX: DAY #=>Vanco IV + Cefepime 02/04/19 0457 02/04/19 0434 24H INTERVAL SUMMARY * Defervescing ove past 48 Hrs -- Attempting to open eyes, non-communicative * Orally intubated on the Vent, obese M * Indwelling: Endotracheal tube NG tube Ferrera right chest tube, right femoral triple-lumen catheter IMAGING * 02/04/19 CXR: IMPRESSION: * Right chest tube in place with trace pneumothorax at the right costophrenic angle slightly increased since prior exam. * Endotracheal tube and nasogastric tube in place. * Extensive bilateral soft tissue emphysema is unchanged. * 02/04/19 CT CHEST IMPRESSION: * 1. Right-sided chest tube is in place. Mild residual right pneumothorax is noted. Right chest wall subcutaneous emphysema is present. * 2. Patchy areas of ground-glass opacity are noted in the bilateral lower lobes - considerations include aspiration and/or pneumonia. * 3. Endotracheal and nasogastric tubes are in place. * 4. No evidence of mass or lymphadenopathy. No significant pulmonary emphysema or bullous disease is identified. MICRO/OTHER * (-) BCX on 01/29; 01/30; 02/03 * (-)MRSA Nares * 02/03/19 RESPIRATORY CULTURE Preliminary Organism 1 NORMAL RESPIRATORY ZACH QUANTITY SCANT GROWTH PHYSICAL EXAMINATION: GENERAL: Acute hypoxic respiratory failure, septic in the ICU HEENT: AT, NC, ETT-> secure to patient and Vent NECK: Increase neck circumference = obesity CHEST: Equal chest rise bilaterally -- Vented w/course BS, CT in place ABD: Obese, Soft, ND EXTREMITIES: Warm, dry, Extremities with bilateral trace edema SKIN: No rash, no diaphoresis - Decub ID ASSESSMENT 58 yo M admit with: 1. Sepsis -- S/p septic shock , fevers, leukocytosis improved, Procalcitonin 0.63 2. Acute hypoxemic respiratory failure/COPD exacerbation 3. Right pneumothorax 4. History of recent C-spine surgery 5. Obesity 6. Persistent leukocytosis, patient is on IV steroids (-)MRSA Nares ABX ALLERGIES: NKDA INVASIVES: R-FEM TLC, ETT, NGT, FC, CXT-Tube CURRENT ABX: DAY # =>Vanco IV + Cefepime ID RECOMMENDATIONS/PLAN: 1. Continue current ABX and supportive care -- await clinical improvement . Consultation Date/Type/Reason Admit Date/Time January 29, 2019 at 18:27 Initial Consult Date 01/30/19 Requesting Provider: DUSTY VILLASENOR Date/Time of Note DATE: 02/04/19 TIME: 16:40 Exam/Review of Systems Exam Vitals Vital Signs Date Temp Pulse Resp B/P (MAP) Pulse Ox O2 O2 Flow FiO2 Time Delivery Rate 02/04/19 63 18 99 30 15:10 02/04/19 102/64 Mechanical 14:00 (77) Ventilator 02/04/19 98.1 12:00 Intake and Output 02/03/19 02/03/19 02/04/19 1515:00 23:00 07:00 IntakeIntake Total 808.932 ml 775.538 ml 1251.272 ml OutputOutput Total 375 ml 815 ml 335 ml BalanceBalance 433.932 ml -39.462 ml 916.272 ml Results Result Diagram: 02/04/19 0457 02/04/19 0434 Results 24hrs Laboratory Tests Test 02/03/19 18:09 02/03/19 19:37 02/03/19 21:27 02/04/19 01:00 Bedside Glucose 229 H 228 H 218 192 Test 02/04/19 04:34 02/04/19 04:53 02/04/19 04:57 02/04/19 08:44 Sodium Level 142 Potassium Level 3.8 Chloride Level 103 Carbon Dioxide Level 35 H Anion Gap 4 L Blood Urea Nitrogen 45 H Creatinine 0.72 Est Glomerular > 60 Filtrat Rate mL/min Glucose Level 145 Calcium Level 8.1 L Phosphorus Level 3.3 Magnesium Level 2.6 H Bedside Glucose 158 161 White Blood Count 11.5 #H Red Blood Count 2.78 L Hemoglobin 9.0 L Hematocrit 28.0 L Mean Corpuscular 100.7 Volume Mean Corpuscular 32.4 Hemoglobin Mean Corpuscular 32.1 Hemoglobin Concent Red Cell 12.5 Distribution Width Platelet Count 265 Mean Platelet Volume 9.7 Immature 2.000 H Granulocytes % Neutrophils % 85.2 H Lymphocytes % 7.2 L Monocytes % 4.2 Eosinophils % 1.1 Basophils % 0.3 Nucleated Red Blood 0.4 H Cells % Immature 0.230 H Granulocytes # Neutrophils # 9.8 H Lymphocytes # 0.8 Monocytes # 0.5 Eosinophils # 0.1 Basophils # 0.0 Nucleated Red Blood 0.1 H Cells # Test 02/04/19 11:36 02/04/19 13:28 Free Thyroxine 1.70 Bedside Glucose 207 Medications Medication Current Medications IV Flush (NS 3 ml) 3 ml PER PROTOCOL IV ; Start 01/29/19 at 19:30 Norepinephrine 250 ml @ 1.875 mls/ hr TITRATE IV Last administered on 01/30/19at 11:09; Admin Dose 18.75 MLS/HR; Start 01/29/19 at 21:00 Fentanyl 100 ml @ 2.5 mls/hr TITRATE IV Last administered on 02/04/19 01:58; Admin Dose 5 MLS/HR; Start 01/29/19 at 21:00 Midazolam HCl 50 ml @ 1 mls/hr TITRATE IV Last administered on 01/30/19at 19:53; Admin Dose 10 MLS/HR; Start 01/29/19 at 21:00 Ipratropium [place] (Atrovent Hfa) 4 puff Q4H RESP THERAPY INH Last administered on 02/04/19at 14:21; Admin Dose 4 PUFF; Start 01/29/19 at 21:28 Propofol 100 ml @ 2.964 mls/ hr Q12H IV Last administered on 02/04/19at 12:35; Admin Dose 17.784 MLS/HR; Start 01/30/19 at 03:00 Albuterol (Ventolin Hfa) 4 puff Q4H RESP THERAPY PRN INH SHORTNESS OF BREATH; Start 01/30/19 at 11:00 Cefepime HCl 50 ml @ 100 mls/hr Q12 IVPB Last administered on 02/04/19at 08:47; Admin Dose 100 MLS/HR; Start 01/30/19 at 12:30 Vancomycin HCl (Vanco Iv Per Pharmacy) VANCOMYCIN PER PHARMACY PER PROTOCOL XX ; Start 01/30/19 at 11:30 Miscellaneous Information 1 ea NOTE XX ; Start 01/30/19 at 15:00 Glucose (Glutose) 15 gm Q15M PRN PO DECREASED GLUCOSE; Start 01/30/19 at 15:00 Glucose (Glutose) 22.5 gm Q15M PRN PO DECREASED GLUCOSE; Start 01/30/19 at 15:00 Dextrose (D50w Syringe) 25 ml Q15M PRN IV DECREASED GLUCOSE; Start 01/30/19 at 15:00 Dextrose (D50w Syringe) 50 ml Q15M PRN IV DECREASED GLUCOSE; Start 01/30/19 at 15:00 Glucagon (Glucagen) 1 mg Q15M PRN IM DECREASED GLUCOSE; Start 01/30/19 at 15:00 Glucose (Glutose) 15 gm Q15M PRN BUCCAL DECREASED GLUCOSE; Start 01/30/19 at 15:00 Insulin Aspart (Novolog Insulin Pen) NOVOLOG *MODERATE* ALGORI... Q4 SC Last administered on 02/04/19 13:30; Admin Dose 4 UNIT; Start 02/02/19 at 09:00 Famotidine (Pepcid Iv) 20 mg DAILY IV Last administered on 02/04/19 08:51; Admin Dose 20 MG; Start 02/02/19 at 09:00 Acetaminophen (Tylenol Liquid) 650 mg Q4H PRN NGT MILD PAIN(1-3)OR ELEVATED TEMP Last administered on 02/03/19 04:21; Admin Dose 650 MG; Start 02/02/19 at 20:30 Furosemide (Lasix) 20 mg BID DIURETICS NGT Last administered on 02/04/19 05:3 8; Admin Dose 20 MG; Start 02/03/19 at 18:00 Trazodone HCl (Desyrel) 25 mg QHS NGT Last administered on 02/03/19 20:15; Admin Dose 25 MG; Start 02/03/19 at 21:00 Atorvastatin Calcium (Lipitor) 20 mg HS NGT Last administered on 02/03/19 20:16; Admin Dose 20 MG; Start 02/03/19 at 21:00 Docusate Sodium (Colace Liquid Cup) 100 mg BID NGT Last administered on 02/04/19 08:47; Admin Dose 100 MG; Start 02/03/19 at 11:00 Enoxaparin Sodium (Lovenox) 100 mg Q12H SC Last administered on 02/04/19 13: 30; Admin Dose 100 MG; Start 02/03/19 at 11:30 Vancomycin HCl 1.25 gm/Sodium Chloride 250 ml @ 83.333 mls/ hr Q24H IVPB Last administered on 5/25/19at 01:50; Admin Dose 83.333 MLS/HR; Start 02/04/19 at 02:00 Phenylephrine HCl 250 ml @ 75 mls/hr TITRATE IV Last administered on 02/04/19at 15:06; Admin Dose 67.5 MLS/HR; Start 02/03/19 at 18:30 Insulin Glargine (Lantus) 20 units DAILY@2000 SC ; Start 02/04/19 at 20:00 Lorazepam (Ativan) 0.5 mg Q6H PRN IV AGITATION/ANXIETY; Start 02/04/19 at 11:30 Prednisone (Prednisone) 20 mg ONCE NGT ; Start 02/05/19 at 09:00; Stop 02/05/19 at 10:00 STEPHANIE PEACOCK NP February 04, 2019 16:40
[2019-02-04] MEDS: ATORVASTATIN 20 MG TAB NGT SCH (21:03)
[2019-02-04] MEDS: traZODone 50 MG TAB NGT SCH (21:03)
[2019-02-04] MEDS: INSULIN GLARGINE [LANTus] (100 UNITS/ML) SYG SC SCH (21:09)
[2019-02-05] VITALS (103 sets, daily range): BP systolic 57–150; BP diastolic 35–113; PULSE 45–112; RESP 11–24
[2019-02-05] MEDS: IPRATROPIUM (HFA) 12.9 GM INHALER INH SCH ×6 (01:18→21:30)
[2019-02-05] MEDS: PHENYLephrine 20MG IN 250 ML 250 ML IV SCH ×4 (02:09→11:38)
[2019-02-05] MEDS: NORepinephrine 8MG/250 ML (PMX 250 ML IV SCH (02:09)
[2019-02-05] MEDS: VANCOMYCIN HCL 1.25 GM in SOD CHLORIDE 0.9% 250 ML IVPB SCH (02:23)
[2019-02-05] MEDS: INSULIN ASPART [NOVOLOG] 3 ML PEN SC SCH ×6 (02:27→21:17)
[2019-02-05] MEDS: PROPOFOL 100 ML IV SCH ×3 (04:55→17:26)
[2019-02-05] MEDS: FUROSEMIDE 20 MG TAB NGT SCH ×2 (05:55→17:36)
[2019-02-05] MEDS: DOCUSATE SODIUM 10 MG/ML (10ML CUP) NGT SCH ×2 (08:05→21:15)
[2019-02-05] MEDS: FAMOTIDINE 20 MG INJ IV SCH (08:05)
[2019-02-05] MEDS: CEFEPIME 2GM/50 ML (PMX) 50 ML IVPB SCH ×2 (08:05→21:15)
[2019-02-05] MEDS ORDERED: predniSONE 20 MG TAB NGT SCH (09:00)
--- NOTE | 2019-02-05 09:36 | CONS ---
Assessment/Plan Assessment/Plan Assessment/Plan (Daily) Patient is currently on propofol 30 mics per kilogram per minute. Ventilator setting; assist control of 18, tidal volume 600, PEEP of 5, 30% FiO2. Assessment and recommendations; 1. Patient admitted respiratory failure due to severe COPD and has failed multiple weaning trials from ventilator. 2. Anemia. 3. Likely chronic type II respiratory failure. 4. Diabetes. 5. Right pneumothorax, status post chest tube placement with generalized subcutaneous emphysema involving the entire body. 6. History of CML. 7. History of pulmonary hypertension. 8. Mild CHF. 9. Interval resolution of hypotension. 10. History of drug abuse. Continue current supportive care. Patient likely will need to have a tracheostomy performed. Prognosis is poor. Meanwhile will obtain follow-up chest x-ray. 35 minutes of critical care time was spent evaluating the patient. Consultation Date/Type/Reason Admit Date/Time January 29, 2019 at 18:27 Initial Consult Date 01/30/19 Type of Consult Pulmonary/critical care Requesting Provider: DUSTY VILLASENOR Date/Time of Note DATE: 02/05/19 TIME: 09:32 24 HR Interval Summary Free Text/Dictation Patient's condition remains critical. Patient has failed multiple weaning trials from ventilator. Patient however has improved hemodynamically and is off pressor support. General exam; middle-aged male, appears overweight, orally intubated, sedated, currently in no distress. Exam/Review of Systems Exam Vitals Vital Signs Date Temp Pulse Resp B/P (MAP) Pulse Ox O2 O2 Flow FiO2 Time Delivery Rate 02/05/19 30 07:55 02/05/19 56 18 97/52 (67) 100 Mechanical 07:00 Ventilator 02/05/19 97.8 04:00 Intake and Output 02/04/19 02/04/19 02/05/19 1515:00 23:00 07:00 IntakeIntake Total 1210.204 ml 1437.102 ml 1607.556 ml OutputOutput Total 375 ml 680 ml 650 ml BalanceBalance 835.204 ml 757.102 ml 957.556 ml Exam HEENT exam; supple neck, no JVD. No lymphadenopathy. Midline trachea. No thyromegaly. Orally intubated. Patient has fair dentition. No neck masses. There is mild subcutaneous emphysema involving neck. Chest exam; diminished breath sounds throughout. S1-S2 audible, no murmurs. Right side chest tube in place. There is bilateral chest wall emphysema present. Abdomen exam; soft, no organomegaly. Bowel sounds audible. Abdomen is nondistended. Mild SQ emphysema felt in the abdominal wall as well. Extremity exam; no peripheral edema. Sub cutaneous emphysema involving lower extremities. [employer] ANALYST exam; patient is sedated. Results Result Diagram: 02/05/19 0422 02/05/19 0422 Results 24hrs Laboratory Tests Test 02/04/19 11:36 02/04/19 13:28 02/04/19 18:38 02/04/19 21:01 Free Thyroxine 1.70 Bedside Glucose 207 240 H 242 H Test 02/05/19 02:18 02/05/19 04:22 02/05/19 05:52 02/05/19 08:11 Bedside Glucose 160 165 182 White Blood Count 10.3 Red Blood Count 2.54 L Hemoglobin 8.3 L Hematocrit 25.3 L Mean Corpuscular 99.6 Volume Mean Corpuscular 32.7 Hemoglobin Mean Corpuscular 32.8 Hemoglobin Concent Red Cell 12.5 Distribution Width Platelet Count 272 Mean Platelet Volume 9.7 Immature 4.600 H Granulocytes % Neutrophils % 78.3 H Lymphocytes % 11.2 L Monocytes % 3.6 Eosinophils % 2.1 Basophils % 0.2 Nucleated Red Blood 0.6 H Cells % Immature 0.470 H Granulocytes # Neutrophils # 8.0 H Lymphocytes # 1.2 Monocytes # 0.4 Eosinophils # 0.2 Basophils # 0.0 Nucleated Red Blood 0.1 H Cells # Sodium Level 140 Potassium Level 3.9 Chloride Level 103 Carbon Dioxide Level 34 H Anion Gap 3 L Blood Urea Nitrogen 36 H Creatinine 0.69 Est Glomerular > 60 Filtrat Rate mL/min Glucose Level 153 Calcium Level 7.8 L Phosphorus Level 2.8 Magnesium Level 2.5 Medications Medication Current Medications IV Flush (NS 3 ml) 3 ml PER PROTOCOL IV ; Start 01/29/19 at 19:30 Norepinephrine 250 ml @ 1.875 mls/ hr TITRATE IV Last administered on 02/05/19at 02:09; Admin Dose 9.375 MLS/HR; Start 01/29/19 at 21:00 Fentanyl 100 ml @ 2.5 mls/hr TITRATE IV Last administered on 02/04/19at 23:29; Admin Dose 5 MLS/HR; Start 01/29/19 at 21:00 Midazolam HCl 50 ml @ 1 mls/hr TITRATE IV Last administered on 01/30/19at 19:53; Admin Dose 10 MLS/HR; Start 01/29/19 at 21:00 Ipratropium [place] (Atrovent Hfa) 4 puff Q4H RESP THERAPY INH Last administered on 02/05/19at 05:15; Admin Dose 4 PUFF; Start 01/29/19 at 21:28 Propofol 100 ml @ 2.964 mls/ hr Q12H IV Last administered on 02/05/19at 04:55; Admin Dose 17.784 MLS/HR; Start 01/30/19 at 03:00 Albuterol (Ventolin Hfa) 4 puff Q4H RESP THERAPY PRN INH SHORTNESS OF BREATH; Start 01/30/19 at 11:00 Cefepime HCl 50 ml @ 100 mls/hr Q12 IVPB Last administered on 02/05/19at 08:05; Admin Dose 100 MLS/HR; Start 01/30/19 at 12:30 Vancomycin HCl (Vanco Iv Per Pharmacy) VANCOMYCIN PER PHARMACY PER PROTOCOL XX ; Start 01/30/19 at 11:30 Miscellaneous Information 1 ea NOTE XX ; Start 01/30/19 at 15:00 Glucose (Glutose) 15 gm Q15M PRN PO DECREASED GLUCOSE; Start 01/30/19 at 15:00 Glucose (Glutose) 22.5 gm Q15M PRN PO DECREASED GLUCOSE; Start 01/30/19 at 15:00 Dextrose (D50w Syringe) 25 ml Q15M PRN IV DECREASED GLUCOSE; Start 01/30/19 at 15:00 Dextrose (D50w Syringe) 50 ml Q15M PRN IV DECREASED GLUCOSE; Start 01/30/19 at 15:00 Glucagon (Glucagen) 1 mg Q15M PRN IM DECREASED GLUCOSE; Start 01/30/19 at 15:00 Glucose (Glutose) 15 gm Q15M PRN BUCCAL DECREASED GLUCOSE; Start 01/30/19 at 15:00 Insulin Aspart (Novolog Insulin Pen) NOVOLOG *MODERATE* ALGORI... Q4 SC Last administered on 02/05/19at 08:12; Admin Dose 4 UNIT; Start 02/02/19 at 09:00 Famotidine (Pepcid Iv) 20 mg DAILY IV Last administered on 02/05/19 08:05; Admin Dose 20 MG; Start 02/02/19 at 09:00 Acetaminophen (Tylenol Liquid) 650 mg Q4H PRN NGT MILD PAIN(1-3)OR ELEVATED TEMP Last administered on 02/03/19 04:21; Admin Dose 650 MG; Start 02/02/19 at 20:30 Furosemide (Lasix) 20 mg BID DIURETICS NGT Last administered on 02/05/19 05:55; Admin Dose 20 MG; Start 02/03/19 at 18:00 Trazodone HCl (Desyrel) 25 mg QHS NGT Last administered on 02/04/19 21:03; Admin Dose 25 MG; Start 02/03/19 at 21:00 Atorvastatin Calcium (Lipitor) 20 mg HS NGT Last administered on 02/04/19 21:03; Admin Dose 20 MG; Start 02/03/19 at 21:00 Docusate Sodium (Colace Liquid Cup) 100 mg BID NGT Last administered on 02/05/19 08:05; Admin Dose 100 MG; Start 02/03/19 at 11:00 Enoxaparin Sodium (Lovenox) 100 mg Q12H SC Last administered on 02/04/19 23:28; Admin Dose 100 MG; Start 02/03/19 at 11:30 Vancomycin HCl 1.25 gm/Sodium Chloride 250 ml @ 83.333 mls/ hr Q24H IVPB Last administered on 02/05/19 02:23; Admin Dose 83.333 MLS/HR; Start 02/04/19 at 02:00 Phenylephrine HCl 250 ml @ 75 mls/hr TITRATE IV Last administered on 02/05/19 08:20; Admin Dose 75 MLS/HR; Start 02/03/19 at 18:30 Insulin Glargine (Lantus) 20 units DAILY@2000 SC Last administered on 02/04/19 21:09; Admin Dose 20 UNITS; Start 02/04/19 at 20:00 Lorazepam (Ativan) 0.5 mg Q6H PRN IV AGITATION/ANXIETY; Start 02/04/19 at 11:30 Prednisone (Prednisone) 20 mg ONCE NGT Last administered on 5/26/19at 08:11; Admin Dose 20 MG; Start 02/05/19 at 09:00; Stop 02/05/19 at 10:00 CATIA CALVO February 05, 2019 09:36
--- NOTE | 2019-02-05 09:57 | PN ---
Date/Time of Note Date/Time of Note DATE: 02/05/19 TIME: 09:50 Assessment/Plan VTE Prophylaxis Risk score (from [facility] [place]0 risk: 12 SCD applied (from [facility] [place]): No SCD contraindicated: other Pharmacological prophylaxis: LMWH Lines/Catheters IV Catheter Type (from [email or web address] Central Line Central line still needed: Yes Urinary Cath still in place: Yes Reason Cath still needed: urinary retention Assessment/Plan Hospital Course S: Patient still intubated, failed extubation trial yesterday. Seen by pulmonary team this morning. Still on Sebastien-Synephrine. Chest tube had to be clamped yesterday after there was slight increase in the pneumothorax yesterday, chest x-ray today however shows some improvement in this. O: VS- see below PE: Intubated, sedated Lungs clear anteriorly R sided chest tube in place RRR Soft nt nd Ext with mild edema, warm 2D echo January 29, 2019: Conclusions: Normal left ventricular cavity size. Normal left ventricular wall thickness. Mild left ventricular systolic dysfunction. Ejection fraction is visually estimated at 45 %. Abnormal Diastolic Function. Normal right ventricular size. Normal right ventricular systolic function. The left atrium is normal in size. The right atrium is normal in size. Normal appearance of the tricuspid valve. Estimated peak PA systolic pressure 67 mmHg. There is mild tricuspid regurgitation. No significant valvular stenosis or regurgitation seen of remaining visualized valves. Normal pericardium with no significant pericardial effusion. CT neck January 29, 2019: IMPRESSION: 1. Right laminectomies of C3 - C6 with internal fixation plate and screws. 2. Nondisplaced fractures of the C3 - C6 left lamina. 3. Small right pneumothorax with chest tube in place. 4. Bilateral subsegmental atelectasis involving the upper lobes . 5. Postsurgical edema and scar located in the midline of C2 - C6. A/P: 58 yo male with likely COPD and CHF though exact history unknown who presented with respiratory distress and hypercapnic respiratory failure. Was on BIPAP when decompensated and found to have pneumothorax, intubated and with R chest tube on admission. # Acute hypercapnic respiratory failure- likely from COPD per reports and respiratory acidosis - slowly improving, but again failed CPAP trial yesterday. -For now continue as needed Bronchodilators, tapering steroids, continue antibiotics -Monitor white blood cell (trending down now), continue mechanical ventilation per pulmonary -they are now recommending patient will likely need tracheostomy in the near future # Pneumothorax: Found on chest x-ray 6 days ago, chest tube has been in place and was repositioned 2 days ago, patient again has some subcutaneous emphysema but based on the serial chest x-rays since then the pneumothorax appears to have resolved now. Again has been showing subcutaneous emphysema as well. -Monitor, follow-up further recommendations from CTS team for chest tube management -Also follow up pulmonary recommendations #Leukocytosis: trending down; no fevers. Patient is on last day of steroids which we have been tapering over the last few days -Continue broad-spectrum antibiotics follow-up final culture results -Follow-up further recommendations from infectious disease consult #Hypertension/shock: Again still requiring pressor support. No fevers -Monitor, try to wean off pressor support as tolerated -Obviously holding patient's home blood pressure medicines for now # C-spine sx -occurred at outside hospital recently within the last one 1 week apparently -Again, awaiting medical records from [facility] for further investigate this since the patient was discharged from there 7 days ago after be ing treated there for C neck pathology and apparently had surgery there at that time on the cervical spine. -Monitor, follow-up recommendations from PT alejandra #History of CML: -Patient on Gleevec at home, but we are not able to give it here as it is not able to be crushed for the G-tube #History of likely MIGEL and pulmonary hypertension: Again presently intubated. -Monitor for now, holding off on restarting patient's home sildenafil because of patient's current hypotension #Paroxysmal A. fib: Takes Pradaxa at home. However patient has been in sinus rhythm -Monitor, continue Lovenox 1 mg/kg as we cannot crush the Pradaxa now to give to him Dispo: Further management pending clinical course Critical care time spent in patient care today equals 45 minutes. Result Diagram: 02/05/19 0422 02/05/19421 Results 24hrs Laboratory Tests Test 02/04/19 11:36 02/04/19 13:28 02/04/19 18:38 02/04/19 21:01 Free Thyroxine 1.70 Bedside Glucose 207 240 H 242 H Test 02/05/19 02:18 02/05/19 04:22 02/05/19 05:52 02/05/19 08:11 Bedside Glucose 160 165 182 White Blood Count 10.3 Red Blood Count 2.54 L Hemoglobin 8.3 L Hematocrit 25.3 L Mean Corpuscular 99.6 Volume Mean Corpuscular 32.7 Hemoglobin Mean Corpuscular 32.8 Hemoglobin Concent Red Cell 12.5 Distribution Width Platelet Count 272 Mean Platelet Volume 9.7 Immature 4.600 H Granulocytes % Neutrophils % 78.3 H Lymphocytes % 11.2 L Monocytes % 3.6 Eosinophils % 2.1 Basophils % 0.2 Nucleated Red Blood 0.6 H Cells % Immature 0.470 H Granulocytes # Neutrophils # 8.0 H Lymphocytes # 1.2 Monocytes # 0.4 Eosinophils # 0.2 Basophils # 0.0 Nucleated Red Blood 0.1 H Cells # Sodium Level 140 Potassium Level 3.9 Chloride Level 103 Carbon Dioxide Level 34 H Anion Gap 3 L Blood Urea Nitrogen 36 H Creatinine 0.69 Est Glomerular > 60 Filtrat Rate mL/min Glucose Level 153 Calcium Level 7.8 L Phosphorus Level 2.8 Magnesium Level 2.5 Exam/Review of Systems Exam Vitals Vital Signs Date Temp Pulse Resp B/P (MAP) Pulse Ox O2 O2 Flow FiO2 Time Delivery Rate 02/05/19 58 18 100 30 09:36 02/05/19 88/52 (64) 09:30 02/05/19 Mechanical 09:00 Ventilator 02/05/19 98.5 08:00 Intake and Output 02/04/19 02/04/19 02/05/19 1515:00 23:00 07:00 IntakeIntake Total 1210.204 ml 1437.102 ml 1607.556 ml OutputOutput Total 375 ml 680 ml 650 ml BalanceBalance 835.204 ml 757.102 ml 957.556 ml Results Results 24hrs Laboratory Tests Test 02/04/19 11:36 02/04/19 13:28 02/04/19 18:38 02/04/19 21:01 Free Thyroxine 1.70 Bedside Glucose 207 240 H 242 H Test 02/05/19 02:18 02/05/19 04:22 02/05/19 05:52 02/05/19 08:11 Bedside Glucose 160 165 182 White Blood Count 10.3 Red Blood Count 2.54 L Hemoglobin 8.3 L Hematocrit 25.3 L Mean Corpuscular 99.6 Volume Mean Corpuscular 32.7 Hemoglobin Mean Corpuscular 32.8 Hemoglobin Concent Red Cell 12.5 Distribution Width Platelet Count 272 Mean Platelet Volume 9.7 Immature 4.600 H Granulocytes % Neutrophils % 78.3 H Lymphocytes % 11.2 L Monocytes % 3.6 Eosinophils % 2.1 Basophils % 0.2 Nucleated Red Blood 0.6 H Cells % Immature 0.470 H Granulocytes # Neutrophils # 8.0 H Lymphocytes # 1.2 Monocytes # 0.4 Eosinophils # 0.2 Basophils # 0.0 Nucleated Red Blood 0.1 H Cells # Sodium Level 140 Potassium Level 3.9 Chloride Level 103 Carbon Dioxide Level 34 H Anion Gap 3 L Blood Urea Nitrogen 36 H Creatinine 0.69 Est Glomerular > 60 Filtrat Rate mL/min Glucose Level 153 Calcium Level 7.8 L Phosphorus Level 2.8 Magnesium Level 2.5 Medications Medication Current Medications IV Flush (NS 3 ml) 3 ml PER PROTOCOL IV ; Start 01/29/19 at 19:30 Norepinephrine 250 ml @ 1.875 mls/ hr TITRATE IV Last administered on 02/05/19 02:09; Admin Dose 9.375 MLS/HR; Start 01/29/19 at 21:00 Fentanyl 100 ml @ 2.5 mls/hr TITRATE IV Last administered on 02/04/19 23:29; Admin Dose 5 MLS/HR; Start 01/29/19 at 21:00 Midazolam HCl 50 ml @ 1 mls/hr TITRATE IV Last administered on 01/30/19 19:53; Admin Dose 10 MLS/HR; Start 01/29/19 at 21:00 Ipratropium [place] (Atrovent Hfa) 4 puff Q4H RESP THERAPY INH Last adminis tered on 02/05/19 05:15; Admin Dose 4 PUFF; Start 01/29/19 at 21:28 Propofol 100 ml @ 2.964 mls/ hr Q12H IV Last administered on 02/05/19 09:45; Admin Dose 17.784 MLS/HR; Start 01/30/19 at 03:00 Albuterol (Ventolin Hfa) 4 puff Q4H RESP THERAPY PRN INH SHORTNESS OF BREATH; Start 01/30/19 at 11:00 Cefepime HCl 50 ml @ 100 mls/hr Q12 IVPB Last administered on 5/26/19at 08:05; Admin Dose 100 MLS/HR; Start 01/30/19 at 12:30 Vancomycin HCl (Vanco Iv Per Pharmacy) VANCOMYCIN PER PHARMACY PER PROTOCOL XX ; Start 01/30/19 at 11:30 Miscellaneous Information 1 ea NOTE XX ; Start 01/30/19 at 15:00 Glucose (Glutose) 15 gm Q15M PRN PO DECREASED GLUCOSE; Start 01/30/19 at 15:00 Glucose (Glutose) 22.5 gm Q15M PRN PO DECREASED GLUCOSE; Start 01/30/19 at 15:00 Dextrose (D50w Syringe) 25 ml Q15M PRN IV DECREASED GLUCOSE; Start 01/30/19 at 15:00 Dextrose (D50w Syringe) 50 ml Q15M PRN IV DECREASED GLUCOSE; Start 01/30/19 at 15:00 Glucagon (Glucagen) 1 mg Q15M PRN IM DECREASED GLUCOSE; Start 01/30/19 at 15:00 Glucose (Glutose) 15 gm Q15M PRN BUCCAL DECREASED GLUCOSE; Start 01/30/19 at 15:00 Insulin Aspart (Novolog Insulin Pen) NOVOLOG *MODERATE* ALGORI... Q4 SC Last administered on 02/05/19at 08:12; Admin Dose 4 UNIT; Start 02/02/19 at 09:00 Famotidine (Pepcid Iv) 20 mg DAILY IV Last administered on 02/05/19at 08:05; Admin Dose 20 MG; Start 02/02/19 at 09:00 Acetaminophen (Tylenol Liquid) 650 mg Q4H PRN NGT MILD PAIN(1-3)OR ELEVATED TEMP Last administered on 02/03/19at 04:21; Admin Dose 650 MG; Start 02/02/19 at 20:30 Furosemide (Lasix) 20 mg BID DIURETICS NGT Last administered on 02/05/19at 05:55; Admin Dose 20 MG; Start 02/03/19 at 18:00 Trazodone HCl (Desyrel) 25 mg QHS NGT Last administered on 02/04/19at 21:03; Admin Dose 25 MG; Start 02/03/19 at 21:00 Atorvastatin Calcium (Lipitor) 20 mg HS NGT Last administered on 02/04/19at 21:03; Admin Dose 20 MG; Start 02/03/19 at 21:00 Docusate Sodium (Colace Liquid Cup) 100 mg BID NGT Last administered on 02/05/19 08:05; Admin Dose 100 MG; Start 02/03/19 at 11:00 Enoxaparin Sodium (Lovenox) 100 mg Q12H SC Last administered on 02/04/19at 23:28; Admin Dose 100 MG; Start 02/03/19 at 11:30 Vancomycin HCl 1.25 gm/Sodium Chloride 250 ml @ 83.333 mls/ hr Q24H IVPB Last administered on 02/05/19 02:23; Admin Dose 83.333 MLS/HR; Start 02/04/19 at 02:00 Phenylephrine HCl 250 ml @ 75 mls/hr TITRATE IV Last administered on 02/05/19 08:20; Admin Dose 75 MLS/HR; Start 02/03/19 at 18:30 Insulin Glargine (Lantus) 20 units DAILY@2000 SC Last administered on 02/04/19at 21:09; Admin Dose 20 UNITS; Start 02/04/19 at 20:00 Lorazepam (Ativan) 0.5 mg Q6H PRN IV AGITATION/ANXIETY; Start 02/04/19 at 11:30 Prednisone (Prednisone) 20 mg ONCE NGT Last administered on 02/05/19 08:11; Admin Dose 20 MG; Start 02/05/19 at 09:00; Stop 02/05/19 at 10:00 DUSTY VILLASENOR February 05, 2019 09:57
--- NOTE | 2019-02-05 10:32 | CONS ---
Assessment/Plan Assessment/Plan Hospital Course (Demo Recall) ID PROGRESS NOTE CURRENT ABX: DAY #=>Vanco IV + Cefepime 02/05/19 0422 02/05/19 0422 24H INTERVAL SUMMARY * Still on pressors -- fevers resolved --non-communicative * Orally intubated on the Vent, obese M * Indwelling: Endotracheal tube NG tube Ferrera right chest tube, right femoral triple-lumen catheter IMAGING * 02/05/19 CXR: IMPRESSION:Small residual right pneumothorax in patient with chest tube.Extensive subcutaneous emphysema unchanged.Scattered increased interstitial lung markings. No alveolar infiltrate. * 02/04/19 CT CHEST IMPRESSION: * 1. Right-sided chest tube is in place. Mild residual right pneumothorax is noted. Right chest wall subcutaneous emphysema is present. * 2. Patchy areas of ground-glass opacity are noted in the bilateral lower lobes - considerations include aspiration and/or pneumonia. * 3. Endotracheal and nasogastric tubes are in place. * 4. No evidence of mass or lymphadenopathy. No significant pulmonary emphysema or bullous disease is identified. MICRO/OTHER * (-) BCX on 01/29; 01/30; 02/03 * (-)MRSA Nares * 02/03/19 RESPIRATORY CULTURE Preliminary Organism 1 NORMAL RESPIRATORY ZACH QUANTITY SCANT GROWTH PHYSICAL EXAMINATION: GENERAL: Acute hypoxic respiratory failure, septic in the ICU HEENT: AT, NC, ETT-> secure to patient and Vent NECK: Increase neck circumference = obesity CHEST: Equal chest rise bilaterally -- Vented w/course BS, CT in place ABD: Obese, Soft, ND EXTREMITIES: Warm, dry, Extremities with bilateral trace edema SKIN: No rash, no diaphoresis - Decub ID ASSESSMENT 58 yo M admit with: 1. Sepsis -- S/p septic shock , fevers, leukocytosis RESOLVED, Procalcitonin 0.63 2. Acute hypoxemic respiratory failure/COPD exacerbation 3. Right pneumothorax 4. Severe emphysema w/bullous disease 5. Obesity 6.History of recent C-spine surgery (-)MRSA Nares ABX ALLERGIES: NKDA INVASIVES: R-FEM TLC, ETT, NGT, FC, CXT-Tube CURRENT ABX: DAY # =>Vanco IV + Cefepime ID RECOMMENDATIONS/PLAN: 1. Continue current ABX and supportive care -- await clinical improvement . Consultation Date/Type/Reason Admit Date/Time January 29, 2019 at 18:27 Initial Consult Date 01/30/19 Requesting Provider: DUSTY VILLASENOR Date/Time of Note DATE: 02/05/19 TIME: 10:28 Exam/Review of Systems Exam Vitals Vital Signs Date Temp Pulse Resp B/P (MAP) Pulse Ox O2 O2 Flow FiO2 Time Delivery Rate 02/05/19 58 18 100 30 09:36 02/05/19 88/52 (64) 09:30 02/05/19 Mechanical 09:00 Ventilator 02/05/19 98.5 08:00 Intake and Output 02/04/19 02/04/19 02/05/19 1515:00 23:00 07:00 IntakeIntake Total 1210.204 ml 1437.102 ml 1607.556 ml OutputOutput Total 375 ml 680 ml 650 ml BalanceBalance 835.204 ml 757.102 ml 957.556 ml Results Result Diagram: 02/05/19 0422 02/05/19 0422 Results 24hrs Laboratory Tests Test 02/04/19 11:36 02/04/19 13:28 02/04/19 18:38 02/04/19 21:01 Free Thyroxine 1.70 Bedside Glucose 207 240 H 242 H Test 02/05/19 02:18 02/05/19 04:22 02/05/19 05:52 02/05/19 08:11 Bedside Glucose 160 165 182 White Blood Count 10.3 Red Blood Count 2.54 L Hemoglobin 8.3 L Hematocrit 25.3 L Mean Corpuscular 99.6 Volume Mean Corpuscular 32.7 Hemoglobin Mean Corpuscular 32.8 Hemoglobin Concent Red Cell 12.5 Distribution Width Platelet Count 272 Mean Platelet Volume 9.7 Immature 4.600 H Granulocytes % Neutrophils % 78.3 H Lymphocytes % 11.2 L Monocytes % 3.6 Eosinophils % 2.1 Basophils % 0.2 Nucleated Red Blood 0.6 H Cells % Immature 0.470 H Granulocytes # Neutrophils # 8.0 H Lymphocytes # 1.2 Monocytes # 0.4 Eosinophils # 0.2 Basophils # 0.0 Nucleated Red Blood 0.1 H Cells # Sodium Level 140 Potassium Level 3.9 Chloride Level 103 Carbon Dioxide Level 34 H Anion Gap 3 L Blood Urea Nitrogen 36 H Creatinine 0.69 Est Glomerular > 60 Filtrat Rate mL/min Glucose Level 153 Calcium Level 7.8 L Phosphorus Level 2.8 Magnesium Level 2.5 Medications Medication Current Medications IV Flush (NS 3 ml) 3 ml PER PROTOCOL IV ; Start 01/29/19 at 19:30 Norepinephrine 250 ml @ 1.875 mls/ hr TITRATE IV Last administered on 02/05/19at 02:09; Admin Dose 9.375 MLS/HR; Start 01/29/19 at 21:00 Fentanyl 100 ml @ 2.5 mls/hr TITRATE IV Last administered on 02/04/19at 23:29; Admin Dose 5 MLS/HR; Start 01/29/19 at 21:00 Midazolam HCl 50 ml @ 1 mls/hr TITRATE IV Last administered on 01/30/19at 19:53; Admin Dose 10 MLS/HR; Start 01/29/19 at 21:00 Ipratropium [place] (Atrovent Hfa) 4 puff Q4H RESP THERAPY INH Last administered on 02/05/19at 05:15; Admin Dose 4 PUFF; Start 01/29/19 at 21:28 Propofol 100 ml @ 2.964 mls/ hr Q12H IV Last administered on 02/05/19at 09:45; Admin Dose 17.784 MLS/HR; Start 01/30/19 at 03:00 Albuterol (Ventolin Hfa) 4 puff Q4H RESP THERAPY PRN INH SHORTNESS OF BREATH; Start 01/30/19 at 11:00 Cefepime HCl 50 ml @ 100 mls/hr Q12 IVPB Last administered on 02/05/19at 08:05; Admin Dose 100 MLS/HR; Start 01/30/19 at 12:30 Vancomycin HCl (Vanco Iv Per Pharmacy) VANCOMYCIN PER PHARMACY PER PROTOCOL XX ; Start 01/30/19 at 11:30 Miscellaneous Information 1 ea NOTE XX ; Start 01/30/19 at 15:00 Glucose (Glutose) 15 gm Q15M PRN PO DECREASED GLUCOSE; Start 01/30/19 at 15:00 Glucose (Glutose) 22.5 gm Q15M PRN PO DECREASED GLUCOSE; Start 01/30/19 at 15:00 Dextrose (D50w Syringe) 25 ml Q15M PRN IV DECREASED GLUCOSE; Start 01/30/19 at 15:00 Dextrose (D50w Syringe) 50 ml Q15M PRN IV DECREASED GLUCOSE; Start 01/30/19 at 15:00 Glucagon (Glucagen) 1 mg Q15M PRN IM DECREASED GLUCOSE; Start 01/30/19 at 15:00 Glucose (Glutose) 15 gm Q15M PRN BUCCAL DECREASED GLUCOSE; Start 01/30/19 at 15:00 Insulin Aspart (Novolog Insulin Pen) NOVOLOG *MODERATE* ALGORI... Q4 SC Last administered on 02/05/19at 08:12; Admin Dose 4 UNIT; Start 02/02/19 at 09:00 Famotidine (Pepcid Iv) 20 mg DAILY IV Last administered on 02/05/19 08:05; Admin Dose 20 MG; Start 02/02/19 at 09:00 Acetaminophen (Tylenol Liquid) 650 mg Q4H PRN NGT MILD PAIN(1-3)OR ELEVATED T EMP Last administered on 02/03/19 04:21; Admin Dose 650 MG; Start 02/02/19 at 20:30 Furosemide (Lasix) 20 mg BID DIURETICS NGT Last administered on 02/05/19at 05:55; Admin Dose 20 MG; Start 02/03/19 at 18:00 Trazodone HCl (Desyrel) 25 mg QHS NGT Last administered on 02/04/19 21:03; Admin Dose 25 MG; Start 02/03/19 at 21:00 Atorvastatin Calcium (Lipitor) 20 mg HS NGT Last administered on 02/04/19 21:03; Admin Dose 20 MG; Start 02/03/19 at 21:00 Docusate Sodium (Colace Liquid Cup) 100 mg BID NGT Last administered on 02/05/19 08:05; Admin Dose 100 MG; Start 02/03/19 at 11:00 Enoxaparin Sodium (Lovenox) 100 mg Q12H SC Last administered on 02/04/19 23:28; Admin Dose 100 MG; Start 02/03/19 at 11:30 Vancomycin HCl 1.25 gm/Sodium Chloride 250 ml @ 83.333 mls/ hr Q24H IVPB Last administered on 02/05/19at 02:23; Admin Dose 83.333 MLS/HR; Start 02/04/19 at 02:00 Phenylephrine HCl 250 ml @ 75 mls/hr TITRATE IV Last administered on 02/05/19at 08:20; Admin Dose 75 MLS/HR; Start 02/03/19 at 18:30 Insulin Glargine (Lantus) 20 units DAILY@2000 SC Last administered on 02/04/19at 21:09; Admin Dose 20 UNITS; Start 02/04/19 at 20:00 Lorazepam (Ativan) 0.5 mg Q6H PRN IV AGITATION/ANXIETY; Start 02/04/19 at 11:30 STEPHANIE PEACOCK NP February 05, 2019 10:32
[2019-02-05] MEDS: ENOXAPARIN 100 MG/ML SYG SC SCH ×2 (11:07→23:30)
[2019-02-05] MEDS ORDERED: MIDAZOLAM (DRIP) 50 mg/50 mL 50 ML IV SCH (14:00)
[2019-02-05] MEDS: PHENYLephrine 40 MG in DEXTROSE 5% 246 ML IV SCH ×2 (15:56→23:31)
[2019-02-05] MEDS: FENTAnyl (DRIP) 1000 mcg/100mL 100 ML IV SCH (15:57)
--- NOTE | 2019-02-05 16:31 | PN ---
Date/Time of Note Date/Time of Note DATE: 02/05/19 TIME: 16:30 Assessment/Plan Lines/Catheters IV Catheter Type (from Nrsg): Central Line Ferrera in Place (from Nrsg): Yes Assessment/Plan Assessment/Plan Right pneumothorax Status post chest tube placement And still with small pneumothorax Will continue chest tube suction Repeat chest x-ray in the morning Subjective 24 Hr Interval Summary Constitutional: improved Pain Control: mild Exam/Review of Systems Vital Signs Vitals Vital Signs Date Temp Pulse Resp B/P (MAP) Pulse Ox O2 O2 Flow FiO2 Time Delivery Rate 02/05/19 97.7 96 17 95/80 (85) 100 Mechanical 16:00 Ventilator 02/05/19 30 15:09 Intake and Output 02/04/19 02/04/19 02/05/19 1515:00 23:00 07:00 IntakeIntake Total 1210.204 ml 1437.102 ml 1607.556 ml OutputOutput Total 375 ml 680 ml 650 ml BalanceBalance 835.204 ml 757.102 ml 957.556 ml Exam Eyes: nl conjunctiva, EOMI, nl lids, nl sclera ENMT: nl external ears & nose, nl lips & teeth, nl nasal mucosa & septum, mucosa pink and moist Neck: supple, non-tender Respiratory: clear to auscultation, normal air movement Cardiovascular: regular rate and rhythm, nl pulses Gastrointestinal: soft, nl liver, spleen, non-tender Musculoskeletal: nl extremities to inspection, nl gait and stance Results Result Diagram: 02/05/19 0422 02/05/19 042 GAYLA BURLESON MD February 05, 2019 16:31
[2019-02-05] MEDS: traZODone 50 MG TAB NGT SCH (21:15)
[2019-02-05] MEDS: ATORVASTATIN 20 MG TAB NGT SCH (21:15)
[2019-02-05] MEDS: INSULIN GLARGINE [LANTus] (100 UNITS/ML) SYG SC SCH (21:17)
[2019-02-06] VITALS (95 sets, daily range): BP systolic 53–183; BP diastolic 31–138; PULSE 45–125; RESP 13–22
[2019-02-06] MEDS: IPRATROPIUM (HFA) 12.9 GM INHALER INH SCH ×6 (01:00→21:22)
[2019-02-06] MEDS: VANCOMYCIN HCL 1.25 GM in SOD CHLORIDE 0.9% 250 ML IVPB SCH (01:03)
[2019-02-06] MEDS: INSULIN ASPART [NOVOLOG] 3 ML PEN SC SCH ×6 (01:10→20:33)
[2019-02-06] MEDS: FUROSEMIDE 20 MG TAB NGT SCH ×2 (05:14→17:26)
[2019-02-06] MEDS: PROPOFOL 100 ML IV SCH ×5 (05:15→22:00)
[2019-02-06] MEDS: MIDAZOLAM (DRIP) 50 mg/50 mL 50 ML IV SCH (05:23)
[2019-02-06] MEDS: PHENYLephrine 40 MG in DEXTROSE 5% 246 ML IV SCH ×5 (05:25→20:14)
[2019-02-06] MEDS: FENTAnyl (DRIP) 1000 mcg/100mL 100 ML IV SCH ×2 (07:34→10:42)
[2019-02-06] MEDS: DOCUSATE SODIUM 10 MG/ML (10ML CUP) NGT SCH ×2 (08:21→20:31)
[2019-02-06] MEDS: CEFEPIME 2GM/50 ML (PMX) 50 ML IVPB SCH ×2 (08:21→20:31)
[2019-02-06] MEDS: FAMOTIDINE 20 MG INJ IV SCH (08:21)
--- NOTE | 2019-02-06 08:26 | PN ---
Date/Time of Note Date/Time of Note DATE: 02/06/19 TIME: 08:22 Assessment/Plan VTE Prophylaxis Risk score (from [facility])>0 risk: 11 SCD applied (from [facility]): No SCD contraindicated: other Pharmacological prophylaxis: LMWH Lines/Catheters IV C[facility] Type (from [facility]): Central Line Central line still needed: Yes Urinary Cath still in place: Yes Reason Cath still needed: urinary retention Assessment/Plan Hospital Course S: Patient still intubated, still on pressor support, still with chest tube in place with possible leakage occurring when he coughs. Seen by CTS team yesterday. O: VS- see below PE: Intubated, sedated Lungs clear anteriorly R sided chest tube in place RRR Soft nt nd Ext with mild edema, warm 2D echo January 29, 2019: Conclusions: Normal left ventricular cavity size. Normal left ventricular wall thickness. Mild left ventricular systolic dysfunction. Ejection fraction is visually estimated at 45 %. Abnormal Diastolic Function. Normal right ventricular size. Normal right ventricular systolic function. The left atrium is normal in size. The right atrium is normal in size. Normal appearance of the tricuspid valve. Estimated peak PA systolic pressure 67 mmHg. There is mild tricuspid regurgitation. No significant valvular stenosis or regurgitation seen of remaining visualized valves. Normal pericardium with no significant pericardial effusion. CT neck January 29, 2019: IMPRESSION: 1. Right laminectomies of C3 - C6 with internal fixation plate and screws. 2. Nondisplaced fractures of the C3 - C6 left lamina. 3. Small right pneumothorax with chest tube in place. 4. Bilateral subsegmental atelectasis involving the upper lobes . 5. Postsurgical edema and scar located in the midline of C2 - C6. A/P: 58 yo male with likely COPD and CHF though exact history unknown who presented with respiratory distress and hypercapnic respiratory failure. Was on BIPAP when decompensated and found to have pneumothorax, intubated and with R chest tube on admission. # Acute hypercapnic respiratory failure- likely from COPD per reports and respiratory acidosis - slowly improving, but again failed CPAP trial yesterday. -For now continue as needed Bronchodilators, tapering steroids, continue antibiotics -Monitor white blood cell (trending down now), continue mechanical ventilation per pulmonary -they are now recommending patient will likely need tracheostomy in the near future # Pneumothorax: Found on chest x-ray 7 days ago, chest tube has been in place and was repositioned 3 days ago, patient again has some subcutaneous emphysema but based on the serial chest x-rays since then the pneumothorax was appearing to have been resolved. Again patient still has subcutaneous emphysema as well. -Monitor, follow-up further recommendations from CTS team for chest tube management -Also follow up pulmonary recommendations -chest x-ray ordered for today and is pending #Leukocytosis: trending down; no fevers. Patient is on last day of steroids which we have been tapering over the last few days -Continue broad-spectrum antibiotics follow-up final culture results -Follow-up further recommendations from infectious disease consult #Hypertension/shock: Systolic blood pressure lowered this morning, still on Sebastien- Synephrine, now may be started on levo fed because of this. No fevers -Monitor, continue pressor support and try to wean off as tolerated if possible -Obviously holding patient's home blood pressure medicines for now # C-spine sx -occurred at outside hospital recently within the last one 1 week apparently -Again, awaiting medical records from [facility] for further investigate this since the patient was discharged from there 7 days ago after being treated there for C neck pathology and apparently had surgery there at that time on the cervical spine. -Monitor, follow-up recommendations from PT alejandra #History of CML: -Patient on Gleevec at home, but we are not able to give it here as it is not able to be crushed for the G-tube #History of likely MIGEL and pulmonary hypertension: Again presently intubated. -Monitor for now, holding off on restarting patient's home sildenafil because of patient's current hypotension #Paroxysmal A. fib: Takes Pradaxa at home. However patient has been in sinus rhythm -Monitor, continue Lovenox 1 mg/kg as we cannot crush the Pradaxa now to give to him Dispo: Further management pending clinical course, again because patient has been failing weaning trials consideration for tracheostomy will be considered as well. Critical care time spent in patient care today equals 45 minutes. Result Diagram: 02/06/19 0500 02/06/19 0500 Results 24hrs Laboratory Tests Test 02/05/19 13:03 02/05/19 17:32 02/05/19 21:13 02/06/19 01:01 Bedside Glucose 183 188 173 142 Test 02/06/19 05:00 02/06/19 05:13 White Blood Count 8.2 # Red Blood Count 2.54 L Hemoglobin 8.1 L Hematocrit 25.0 L Mean Corpuscular 98.4 Volume Mean Corpuscular 31.9 Hemoglobin Mean Corpuscular 32.4 Hemoglobin Concent Red Cell 12.6 Distribution Width Platelet Count 318 Mean Platelet Volume 9.9 Immature 6.500 H Granulocytes % Neutrophils % Segmented 84 H Neutrophils % (Manual) Lymphocytes % Lymphocytes % 5 L (Manual) Monocytes % Monocytes % (Manual) 4 Eosinophils % Eosinophils % 6 (Manual) Basophils % Metamyelocytes % 1 H (manual) Nucleated Red Blood 1 H Cells % Immature 0.530 H Granulocytes # Neutrophils # Lymphocytes (Manual) 0.4 L Lymphocytes # Monocytes # Monocytes # (Manual) 0.3 Eosinophils # Basophils # Metamyelocytes # 0.0 Nucleated Red Blood Cells # Platelet Estimate NORMAL Giant Platelets 1 H Polychromasia 1+ Anisocytosis 1+ Microcytosis 1+ Sodium Level 138 Potassium Level 3.9 Chloride Level 100 Carbon Dioxide Level 35 H Anion Gap 3 L Blood Urea Nitrogen 31 H Creatinine 0.79 Est Glomerular > 60 Filtrat Rate mL/min Glucose Level 159 Calcium Level 8.1 L Phosphorus Level 2.8 Magnesium Level 2.3 Bedside Glucose 173 Exam/Review of Systems Exam Vitals Vital Signs Date Temp Pulse Resp B/P (MAP) Pulse Ox O2 O2 Flow FiO2 Time Delivery Rate 02/06/19 53 18 100 30 07:38 02/06/19 138/84 06:00 (102) 02/06/19 Mechanical 05:00 Ventilator 02/06/19 98.0 04:00 Intake and Output 02/05/19 02/05/19 02/06/19 1515:00 23:00 07:00 IntakeIntake Total 1233.6323 ml 957.996 ml 1162.172 ml OutputOutput Total 570 ml 400 ml 350 ml BalanceBalance 663.6323 ml 557.996 ml 812.172 ml Results Results 24hrs Laboratory Tests Test 02/05/19 13:03 02/05/19 17:32 02/05/19 21:13 02/06/19 01:01 Bedside Glucose 183 188 173 142 Test 02/06/19 05:00 02/06/19 05:13 White Blood Count 8.2 # Red Blood Count 2.54 L Hemoglobin 8.1 L Hematocrit 25.0 L Mean Corpuscular 98.4 Volume Mean Corpuscular 31.9 Hemoglobin Mean Corpuscular 32.4 Hemoglobin Concent Red Cell 12.6 Distribution Width Platelet Count 318 Mean Platelet Volume 9.9 Immature 6.500 H Granulocytes % Neutrophils % Segmented 84 H Neutrophils % (Manual) Lymphocytes % Lymphocytes % 5 L (Manual) Monocytes % Monocytes % (Manual) 4 Eosinophils % Eosinophils % 6 (Manual) Basophils % Metamyelocytes % 1 H (manual) Nucleated Red Blood 1 H Cells % Immature 0.530 H Granulocytes # Neutrophils # Lymphocytes (Manual) 0.4 L Lymphocytes # Monocytes # Monocytes # (Manual) 0.3 Eosinophils # Basophils # Metamyelocytes # 0.0 Nucleated Red Blood Cells # Platelet Estimate NORMAL Giant Platelets 1 H Polychromasia 1+ Anisocytosis 1+ Microcytosis 1+ Sodium Level 138 Potassium Level 3.9 Chloride Level 100 Carbon Dioxide Level 35 H Anion Gap 3 L Blood Urea Nitrogen 31 H Creatinine 0.79 Est Glomerular > 60 Filtrat Rate mL/min Glucose Level 159 Calcium Level 8.1 L Phosphorus Level 2.8 Magnesium Level 2.3 Bedside Glucose 173 Medications Medication Current Medications IV Flush (NS 3 ml) 3 ml PER PROTOCOL IV ; Start 01/29/19 at 19:30 Norepinephrine 250 ml @ 1.875 mls/ hr TITRATE IV Last administered on 02/05/19 02:09; Admin Dose 9.375 MLS/HR; Start 01/29/19 at 21:00 Fentanyl 100 ml @ 2.5 mls/hr TITRATE IV Last administered on 02/06/19 07:34; Admin Dose 10 MLS/HR; Start 01/29/19 at 21:00 Midazolam HCl 50 ml @ 1 mls/hr TITRATE IV Last administered on 02/06/19 05:23; Admin Dose 4 MLS/HR; Start 01/29/19 at 21:00 Ipratropium [place] (Atrovent Hfa) 4 puff Q4H RESP THERAPY INH Last administered on 02/06/19 05:00; Admin Dose 4 PUFF; Start 01/29/19 at 21:28 Propofol 100 ml @ 2.964 mls/ hr Q12H IV Last administered on 02/06/19 05:15; Admin Dose 11.856 MLS/HR; Start 01/30/19 at 03:00 Albuterol (Ventolin Hfa) 4 puff Q4H RESP THERAPY PRN INH SHORTNESS OF BREATH; Start 01/30/19 at 11:00 Cefepime HCl 50 ml @ 100 mls/hr Q12 IVPB Last administered on 02/05/19at 21:15; Admin Dose 100 MLS/HR; Start 01/30/19 at 12:30 Vancomycin HCl (Vanco Iv Per Pharmacy) VANCOMYCIN PER PHARMACY PER PROTOCOL XX ; Start 01/30/19 at 11:30 Miscellaneous Information 1 ea NOTE XX ; Start 01/30/19 at 15:00 Glucose (Glutose) 15 gm Q15M PRN PO DECREASED GLUCOSE; Start 01/30/19 at 15:00 Glucose (Glutose) 22.5 gm Q15M PRN PO DECREASED GLUCOSE; Start 01/30/19 at 15:00 Dextrose (D50w Syringe) 25 ml Q15M PRN IV DECREASED GLUCOSE; Start 01/30/19 at 15:00 Dextrose (D50w Syringe) 50 ml Q15M PRN IV DECREASED GLUCOSE; Start 01/30/19 at 15:00 Glucagon (Glucagen) 1 mg Q15M PRN IM DECREASED GLUCOSE; Start 01/30/19 at 15:00 Glucose (Glutose) 15 gm Q15M PRN BUCCAL DECREASED GLUCOSE; Start 01/30/19 at 15:00 Insulin Aspart (Novolog Insulin Pen) NOVOLOG *MODERATE* ALGORI... Q4 SC Last administered on 02/06/19at 05:24; Admin Dose 2 UNIT; Start 02/02/19 at 09:00 Famotidine (Pepcid Iv) 20 mg DAILY IV Last administered on 02/05/19at 08:05; Admin Dose 20 MG; Start 02/02/19 at 09:00 Acetaminophen (Tylenol Liquid) 650 mg Q4H PRN NGT MILD PAIN(1-3)OR ELEVATED TEMP Last administered on 02/03/19at 04:21; Admin Dose 650 MG; Start 02/02/19 at 20:30 Furosemide (Lasix) 20 mg BID DIURETICS NGT Last administered on 02/06/19at 05:14; Admin Dose 20 MG; Start 02/03/19 at 18:00 Trazodone HCl (Desyrel) 25 mg QHS NGT Last administered on 5/26/19at 21:15; Admin Dose 25 MG; Start 02/03/19 at 21:00 Atorvastatin Calcium (Lipitor) 20 mg HS NGT Last administered on 02/05/19 21:15; Admin Dose 20 MG; Start 02/03/19 at 21:00 Docusate Sodium (Colace Liquid Cup) 100 mg BID NGT Last administered on 02/05/19 21:15; Admin Dose 100 MG; Start 02/03/19 at 11:00 Enoxaparin Sodium (Lovenox) 100 mg Q12H SC Last administered on 02/05/19 23:30; Admin Dose 100 MG; Start 02/03/19 at 11:30 Vancomycin HCl 1.25 gm/Sodium Chloride 250 ml @ 83.333 mls/ hr Q24H IVPB Last administered on 02/06/19 01:03; Admin Dose 83.333 MLS/HR; Start 02/04/19 at 02:00 Insulin Glargine (Lantus) 20 units DAILY@2000 SC Last administered on 02/05/19 21:17; Admin Dose 20 UNITS; Start 02/04/19 at 20:00 Lorazepam (Ativan) 0.5 mg Q6H PRN IV AGITATION/ANXIETY; Start 02/04/19 at 11:30 Phenylephrine HCl 40 mg/Dextrose 250 ml @ 37.5 mls/hr TITRATE IV Last administered on 02/06/19 05:25; Admin Dose 45 MLS/HR; Start 02/05/19 at 12:00 DUSTY VILLASENOR February 06, 2019 08:26
[2019-02-06] MEDS ORDERED: SENNA TAB PO PRN (09:00)
--- NOTE | 2019-02-06 09:57 | CONS ---
Consult Date/Type/Reason Admit Date/Time January 29, 2019 at 18:27 Initial Consult Date 01/30/19 Type of Consult Pulmonary Requesting Provider: DUSTY VILLASENOR Date/Time of Note DATE: 02/06/19 TIME: 09:56 Subjective Still has significant subcutaneous emphysema. Objective Vital Signs Date Temp Pulse Resp B/P (MAP) Pulse Ox O2 O2 Flow FiO2 Time Delivery Rate 02/06/19 64 18 100 30 09:27 02/06/19 138/91 Mechanical 09:00 (107) Ventilator 02/06/19 98.7 08:00 Intake and Output 02/05/19 02/05/19 02/06/19 1515:00 23:00 07:00 IntakeIntake Total 1233.6323 ml 957.996 ml 1162.172 ml OutputOutput Total 570 ml 400 ml 350 ml BalanceBalance 663.6323 ml 557.996 ml 812.172 ml Exam GENERAL: Well-nourished well-developed gentleman on mechanical ventilation. VITAL SIGNS: per chart NECK: Supple. No JVD or lymphadenopathy. Marked subcutaneous emphysema CARDIAC EXAM: S1, S2. No added sounds or murmurs. CHEST: Diminished air entry bilaterally ABDOMEN: Soft, nontender. No guarding or rebound. EXTREMITIES: No cyanosis, clubbing edema +2 NEUROLOGIC: Generalized weakness. Vent Setting Ventilator Support Mode: AC Fraction of Inspired Oxygen pe: 30 Positive End Expiratory Pressu: 5.0 Results/Medications Result Diagram: 02/06/19 0500 02/06/19 0500 Results 24 hrs Laboratory Tests Test 02/05/19 13:03 02/05/19 17:32 02/05/19 21:13 02/06/19 01:01 Bedside Glucose 183 188 173 142 Test 02/06/19 05:00 02/06/19 05:13 02/06/19 08:29 White Blood Count 8.2 # Red Blood Count 2.54 L Hemoglobin 8.1 L Hematocrit 25.0 L Mean Corpuscular 98.4 Volume Mean Corpuscular 31.9 Hemoglobin Mean Corpuscular 32.4 Hemoglobin Concent Red Cell 12.6 Distribution Width Platelet Count 318 Mean Platelet Volume 9.9 Immature 6.500 H Granulocytes % Neutrophils % Segmented 84 H Neutrophils % (Manual) Lymphocytes % Lymphocytes % 5 L (Manual) Monocytes % Monocytes % (Manual) 4 Eosinophils % Eosinophils % 6 (Manual) Basophils % Metamyelocytes % 1 H (manual) Nucleated Red Blood 1 H Cells % Immature 0.530 H Granulocytes # Neutrophils # Lymphocytes (Manual) 0.4 L Lymphocytes # Monocytes # Monocytes # (Manual) 0.3 Eosinophils # Basophils # Metamyelocytes # 0.0 Nucleated Red Blood Cells # Platelet Estimate NORMAL Giant Platelets 1 H Polychromasia 1+ Anisocytosis 1+ Microcytosis 1+ Sodium Level 138 Potassium Level 3.9 Chloride Level 100 Carbon Dioxide Level 35 H Anion Gap 3 L Blood Urea Nitrogen 31 H Creatinine 0.79 Est Glomerular > 60 Filtrat Rate mL/min Glucose Level 159 Calcium Level 8.1 L Phosphorus Level 2.8 Magnesium Level 2.3 Bedside Glucose 173 176 Medications Current Medications IV Flush (NS 3 ml) 3 ml PER PROTOCOL IV ; Start 01/29/19 at 19:30 Norepinephrine 250 ml @ 1.875 mls/ hr TITRATE IV Last administered on 02/05/19 02:09; Admin Dose 9.375 MLS/HR; Start 01/29/19 at 21:00 Fentanyl 100 ml @ 2.5 mls/hr TITRATE IV Last administered on 02/06/19 07:34; Admin Dose 10 MLS/HR; Start 01/29/19 at 21:00 Midazolam HCl 50 ml @ 1 mls/hr TITRATE IV Last administered on 02/06/19 05:23; Admin Dose 4 MLS/HR; Start 01/29/19 at 21:00 Ipratropium [place] (Atrovent Hfa) 4 puff Q4H RESP THERAPY INH Last administer ed on 02/06/19 09:30; Admin Dose 4 PUFF; Start 01/29/19 at 21:28 Propofol 100 ml @ 2.964 mls/ hr Q12H IV Last administered on 02/06/19 05:15; Admin Dose 11.856 MLS/HR; Start 01/30/19 at 03:00 Albuterol (Ventolin Hfa) 4 puff Q4H RESP THERAPY PRN INH SHORTNESS OF BREATH; Start 01/30/19 at 11:00 Cefepime HCl 50 ml @ 100 mls/hr Q12 IVPB Last administered on 02/06/19 08:21; Admin Dose 100 MLS/HR; Start 01/30/19 at 12:30 Vancomycin HCl (Vanco Iv Per Pharmacy) VANCOMYCIN PER PHARMACY PER PROTOCOL XX ; Start 01/30/19 at 11:30 Miscellaneous Information 1 ea NOTE XX ; Start 01/30/19 at 15:00 Glucose (Glutose) 15 gm Q15M PRN PO DECREASED GLUCOSE; Start 01/30/19 at 15:00 Glucose (Glutose) 22.5 gm Q15M PRN PO DECREASED GLUCOSE; Start 01/30/19 at 15:00 Dextrose (D50w Syringe) 25 ml Q15M PRN IV DECREASED GLUCOSE; Start 01/30/19 at 15:00 Dextrose (D50w Syringe) 50 ml Q15M PRN IV DECREASED GLUCOSE; Start 01/30/19 at 15:00 Glucagon (Glucagen) 1 mg Q15M PRN IM DECREASED GLUCOSE; Start 01/30/19 at 15:00 Glucose (Glutose) 15 gm Q15M PRN BUCCAL DECREASED GLUCOSE; Start 01/30/19 at 15:00 Insulin Aspart (Novolog Insulin Pen) NOVOLOG *MODERATE* ALGORI... Q4 SC Last administered on 02/06/19 08:31; Admin Dose 2 UNIT; Start 02/02/19 at 09:00 Famotidine (Pepcid Iv) 20 mg DAILY IV Last administered on 02/06/19 08:21; Admin Dose 20 MG; Start 02/02/19 at 09:00 Acetaminophen (Tylenol Liquid) 650 mg Q4H PRN NGT MILD PAIN(1-3)OR ELEVATED TEMP Last administered on 02/03/19 04:21; Admin Dose 650 MG; Start 02/02/19 at 20:30 Furosemide (Lasix) 20 mg BID DIURETICS NGT Last administered on 02/06/19at 05:14; Admin Dose 20 MG; Start 02/03/19 at 18:00 Trazodone HCl (Desyrel) 25 mg QHS NGT Last administered on 02/05/19 21:15; Admin Dose 25 MG; Start 02/03/19 at 21:00 Atorvastatin Calcium (Lipitor) 20 mg HS NGT Last administered on 02/05/19at 21:15; Admin Dose 20 MG; Start 02/03/19 at 21:00 Docusate Sodium (Colace Liquid Cup) 100 mg BID NGT Last administered on 02/06/19 08:21; Admin Dose 100 MG; Start 02/03/19 at 11:00 Enoxaparin Sodium (Lovenox) 100 mg Q12H SC Last administered on 02/05/19at 23:30; Admin Dose 100 MG; Start 02/03/19 at 11:30 Vancomycin HCl 1.25 gm/Sodium Chloride 250 ml @ 83.333 mls/ hr Q24H IVPB Last administered on 02/06/19at 01:03; Admin Dose 83.333 MLS/HR; Start 02/04/19 at 02:00 Insulin Glargine (Lantus) 20 units DAILY@2000 SC Last administered on 02/05/19at 21:17; Admin Dose 20 UNITS; Start 02/04/19 at 20:00 Lorazepam (Ativan) 0.5 mg Q6H PRN IV AGITATION/ANXIETY; Start 02/04/19 at 11:30 Phenylephrine HCl 40 mg/Dextrose 250 ml @ 37.5 mls/hr TITRATE IV Last administered on 02/06/19at 09:19; Admin Dose 75 MLS/HR; Start 02/05/19 at 12:00 Senna (Senokot) 1 tab BID PRN PO CONSTIPATION; Start 02/06/19 at 09:00 Assessment/Plan Hospital Course (Demo Recall) IMPRESSION 1. Chronic obstructive pulmonary disease exacerbation. 2. Right pneumothorax, likely secondary to positive pressure ventilation. Still with persistent air leak. Significant subcutaneous emphysema noted. Chest tube in situ air leak noted 3. Possible underlying bullous lung disease. 4. Morbid obesity. 5. Septic shock source continues Sebastien-Synephrine 6. History of CML 7. History of obstructive sleep apnea, and pulmonary hypertension 8. History of substance abuse in the past. History of anxiety disorder. Plan 1. Trial of SIMV 2. Bronchodilators. 3. Antibiotics. 4. Chest tube to waterseal 5. Vasopressors as needed. 6. Deep vein thrombosis and gastrointestinal prophylaxis. 7. Resume anxiolytics psych medications Critical care time 40 minutes. Prognosis guarded. YESENIA ALCANTAR MD, [facility] February 06, 2019 09:57
[2019-02-06] MEDS: ENOXAPARIN 100 MG/ML SYG SC SCH (11:00)
--- NOTE | 2019-02-06 11:23 | CONS ---
Assessment/Plan Assessment/Plan Hospital Course (Demo Recall) ID PROGRESS NOTE CURRENT ABX: DAY #=>Vanco IV + Cefepime 24H INTERVAL SUMMARY * Clinically not much change -- t subcutaneous emphysema, Still on pressors -- fevers resolved --non-communicative * Orally intubated on the Vent, obese M * Indwelling: Endotracheal tube NG tube Ferrera right chest tube, right femoral triple-lumen catheter IMAGING * 02/05/19 CXR: IMPRESSION:Small residual right pneumothorax in patient with chest tube.Extensive subcutaneous emphysema unchanged.Scattered increased interstitial lung markings. No alveolar infiltrate. * 02/04/19 CT CHEST IMPRESSION: * 1. Right-sided chest tube is in place. Mild residual right pneumothorax is noted. Right chest wall subcutaneous emphysema is present. * 2. Patchy areas of ground-glass opacity are noted in the bilateral lower lobes - considerations include aspiration and/or pneumonia. * 3. Endotracheal and nasogastric tubes are in place. * 4. No evidence of mass or lymphadenopathy. No significant pulmonary emphysema or bullous disease is identified. MICRO/OTHER * (-) BCX on 01/29; 01/30; 02/03 * (-)MRSA Nares * 02/03/19 RESPIRATORY CULTURE Preliminary Organism 1 NORMAL RESPIRATORY ZACH QUANTITY SCANT GROWTH PHYSICAL EXAMINATION: GENERAL: Acute hypoxic respiratory failure, septic in the ICU HEENT: AT, NC, ETT-> secure to patient and Vent NECK: Increase neck circumference = obesity CHEST: Equal chest rise bilaterally -- Vented w/course BS, CT in place ABD: Obese, Soft, ND EXTREMITIES: Warm, dry, Extremities with bilateral trace edema SKIN: No rash, no diaphoresis - Decub ID ASSESSMENT 58 yo M admit with: 1. Sepsis -- S/p septic shock , fevers, leukocytosis RESOLVED, Procalcitonin 0.63 2. Acute hypoxemic respiratory failure/COPD exacerbation 3. Right pneumothorax 4. Severe emphysema w/bullous disease 5. Obesity 6.History of recent C-spine surgery (-)MRSA Nares ABX ALLERGIES: NKDA INVASIVES: R-FEM TLC, ETT, NGT, FC, CXT-Tube CURRENT ABX: DAY # =>Vanco IV + Cefepime ID RECOMMENDATIONS/PLAN: 1. Continue current ABX and supportive care -- await clinical improvement . Consultation Date/Type/Reason Admit Date/Time January 29, 2019 at 18:27 Initial Consult Date 01/30/19 Requesting Provider: DUSTY VILLASENOR Date/Time of Note DATE: 02/06/19 TIME: 11:22 Exam/Review of Systems Exam Vitals Vital Signs Date Temp Pulse Resp B/P (MAP) Pulse Ox O2 O2 Flow FiO2 Time Delivery Rate 02/06/19 30 10:12 02/06/19 64 18 100 09:27 02/06/19 138/91 Mechanical 09:00 (107) Ventilator 02/06/19 98.7 08:00 Intake and Output 02/05/19 02/05/19 02/06/19 1515:00 23:00 07:00 IntakeIntake Total 1233.6323 ml 957.996 ml 1248.972 ml OutputOutput Total 570 ml 400 ml 350 ml BalanceBalance 663.6323 ml 557.996 ml 898.972 ml Results Result Diagram: 02/06/19 0500 02/06/19 0500 Results 24hrs Laboratory Tests Test 02/05/19 13:03 02/05/19 17:32 02/05/19 21:13 02/06/19 01:01 Bedside Glucose 183 188 173 142 Test 02/06/19 05:00 02/06/19 05:13 02/06/19 08:29 White Blood Count 8.2 # Red Blood Count 2.54 L Hemoglobin 8.1 L Hematocrit 25.0 L Mean Corpuscular 98.4 Volume Mean Corpuscular 31.9 Hemoglobin Mean Corpuscular 32.4 Hemoglobin Concent Red Cell 12.6 Distribution Width Platelet Count 318 Mean Platelet Volume 9.9 Immature 6.500 H Granulocytes % Neutrophils % Segmented 84 H Neutrophils % (Manual) Lymphocytes % Lymphocytes % 5 L (Manual) Monocytes % Monocytes % (Manual) 4 Eosinophils % Eosinophils % 6 (Manual) Basophils % Metamyelocytes % 1 H (manual) Nucleated Red Blood 1 H Cells % Immature 0.530 H Granulocytes # Neutrophils # Lymphocytes (Manual) 0.4 L Lymphocytes # Monocytes # Monocytes # (Manual) 0.3 Eosinophils # Basophils # Metamyelocytes # 0.0 Nucleated Red Blood Cells # Platelet Estimate NORMAL Giant Platelets 1 H Polychromasia 1+ Anisocytosis 1+ Microcytosis 1+ Sodium Level 138 Potassium Level 3.9 Chloride Level 100 Carbon Dioxide Level 35 H Anion Gap 3 L Blood Urea Nitrogen 31 H Creatinine 0.79 Est Glomerular > 60 Filtrat Rate mL/min Glucose Level 159 Calcium Level 8.1 L Phosphorus Level 2.8 Magnesium Level 2.3 Bedside Glucose 173 176 Medications Medication Current Medications IV Flush (NS 3 ml) 3 ml PER PROTOCOL IV ; Start 01/29/19 at 19:30 Norepinephrine 250 ml @ 1.875 mls/ hr TITRATE IV Last administered on 02/05/19 02:09; Admin Dose 9.375 MLS/HR; Start 01/29/19 at 21:00 Fentanyl 100 ml @ 2.5 mls/hr TITRATE IV Last administered on 02/06/19 10:42; Admin Dose 10 MLS/HR; Start 01/29/19 at 21:00 Midazolam HCl 50 ml @ 1 mls/hr TITRATE IV Last administered on 02/06/19 05:23; Admin Dose 4 MLS/HR; Start 01/29/19 at 21:00 Ipratropium [place] (Atrovent Hfa) 4 puff Q4H RESP THERAPY INH Last administered on 02/06/19at 09:30; Admin Dose 4 PUFF; Start 01/29/19 at 21:28 Propofol 100 ml @ 2.964 mls/ hr Q12H IV Last administered on 02/06/19at 10:32; Admin Dose 17.784 MLS/HR; Start 01/30/19 at 03:00 Albuterol (Ventolin Hfa) 4 puff Q4H RESP THERAPY PRN INH SHORTNESS OF BREATH; Start 01/30/19 at 11:00 Cefepime HCl 50 ml @ 100 mls/hr Q12 IVPB Last administered on 02/06/19at 08:21; Admin Dose 100 MLS/HR; Start 01/30/19 at 12:30 Vancomycin HCl (Vanco Iv Per Pharmacy) VANCOMYCIN PER PHARMACY PER PROTOCOL XX ; Start 01/30/19 at 11:30 Miscellaneous Information 1 ea NOTE XX ; Start 01/30/19 at 15:00 Glucose (Glutose) 15 gm Q15M PRN PO DECREASED GLUCOSE; Start 01/30/19 at 15:00 Glucose (Glutose) 22.5 gm Q15M PRN PO DECREASED GLUCOSE; Start 01/30/19 at 15:00 Dextrose (D50w Syringe) 25 ml Q15M PRN IV DECREASED GLUCOSE; Start 01/30/19 at 15:00 Dextrose (D50w Syringe) 50 ml Q15M PRN IV DECREASED GLUCOSE; Start 01/30/19 at 15:00 Glucagon (Glucagen) 1 mg Q15M PRN IM DECREASED GLUCOSE; Start 01/30/19 at 15:00 Glucose (Glutose) 15 gm Q15M PRN BUCCAL DECREASED GLUCOSE; Start 01/30/19 at 15:00 Insulin Aspart (Novolog Insulin Pen) NOVOLOG *MODERATE* ALGORI... Q4 SC Last administered on 02/06/19 08:31; Admin Dose 2 UNIT; Start 02/02/19 at 09:00 Famotidine (Pepcid Iv) 20 mg DAILY IV Last administered on 02/06/19 08:21; Admin Dose 20 MG; Start 02/02/19 at 09:00 Acetaminophen (Tylenol Liquid) 650 mg Q4H PRN NGT MILD PAIN(1-3)OR ELEVATED TEMP Last administered on 02/03/19 04:21; Admin Dose 650 MG; Start 02/02/19 at 20:30 Furosemide (Lasix) 20 mg BID DIURETICS NGT Last administered on 02/06/19 05:14; Admin Dose 20 MG; Start 02/03/19 at 18:00 Trazodone HCl (Desyrel) 25 mg QHS NGT Last administered on 02/05/19 21:15; Admin Dose 25 MG; Start 02/03/19 at 21:00 Atorvastatin Calcium (Lipitor) 20 mg HS NGT Last administered on 02/05/19 2 1:15; Admin Dose 20 MG; Start 02/03/19 at 21:00 Docusate Sodium (Colace Liquid Cup) 100 mg BID NGT Last administered on 02/06/19 08:21; Admin Dose 100 MG; Start 02/03/19 at 11:00 Enoxaparin Sodium (Lovenox) 100 mg Q12H SC Last administered on 02/06/19 11:00; Admin Dose 100 MG; Start 02/03/19 at 11:30 Vancomycin HCl 1.25 gm/Sodium Chloride 250 ml @ 83.333 mls/ hr Q24H IVPB Last administered on 02/06/19 01:03; Admin Dose 83.333 MLS/HR; Start 02/04/19 at 02:00 Insulin Glargine (Lantus) 20 units DAILY@2000 SC Last administered on 02/05/19at 21:17; Admin Dose 20 UNITS; Start 02/04/19 at 20:00 Lorazepam (Ativan) 0.5 mg Q6H PRN IV AGITATION/ANXIETY; Start 02/04/19 at 11:30 Phenylephrine HCl 40 mg/Dextrose 250 ml @ 37.5 mls/hr TITRATE IV Last administered on 02/06/19at 09:19; Admin Dose 75 MLS/HR; Start 02/05/19 at 12:00 Senna (Senokot) 1 tab BID PRN PO CONSTIPATION; Start 02/06/19 at 09:00 STEPHANIE PEACOCK NP February 06, 2019 11:23
--- NOTE | 2019-02-06 12:38 | CONS ---
Assessment/Plan Assessment/Plan Assessment/Plan (Daily) Dictating a palliative care consultation on this 58-year-old male who presents [facility] on the presenting with a history of congestive heart failure COPD morbid obesity actually developed respiratory failure that required intubation. Patient developed right pneumothorax requiring chest tube placement, subcutaneous emphysema sepsis syndrome. Patient is on low-dose press ors. The decision maker and family member who holds DURABLE POWER OF SLABBER for healthcare is his who has spoken with today. Apparently patient has had had very poor quality of life secondary to end-stage COPD, congestive heart failure, AML, MIGEL with pulmonary hypertension treated and according to family member he has been suffering for some period of time prior to this catastrophic change in his clinical course. They were not surprised that he became extremely ill, almost expecting the inevitability of his soon. The sister has made it very clear he would not want to live on a ventilator, or have a prolonged hospitalization on assisted ventilation or tracheostomy. They have asked me about hospice care I told them that he qualifies for hospice care even in-house general inpatient care but today I suggest we change his CODE STATUS and tomorrow will have a sitdown talk with the family including his . Patient's sister takes the responsibility for ongoing level of care legally but ethically I believe we should include his and brother therefore I deferred further conversation about level of care. Consultation Date/Type/Reason Admit Date/Time January 29, 2019 at 18:27 Date/Time of Note DATE: 02/06/19 TIME: 12:35 Past Medical History Medical History: no pertinent history, congestive heart failure, other (Obesity acute myelogenous leukemia attic obstructive pulmonary disease) Home Meds Reported Medications Valsartan* (Diovan*) 160 Mg Tablet, 160 MG PO BID, TAB 01/29/19 Trazodone Hcl* (Trazodone Hcl*) 50 Mg Tablet, 50 MG PO QHS, #30 TAB 01/29/19 Tiotropium Hiawatha* (Spiriva*) 18 Mcg Cap.w.dev, 1 CAP INHALATION DAILY, #30 CAP 01/29/19 Spironolactone* (Aldactone*) 25 Mg Tablet, 25 MG PO DAILY, #30 TAB 01/29/19 Sildenafil Citrate* (Viagra*) 100 Mg Tablet, 100 MG PO TID PRN for FOR PULMONAREY HTN, TAB 01/29/19 Prednisone* (Prednisone*) 10 Mg Tab, 10 MG PO DIRECTED, TAB 2TAB DAILY-FOR 2 DAYS 1TAB DAILY-FOR 2 DAYS 01/29/19 Omeprazole* (Omeprazole*) 40 Mg Capsule.dr, 40 MG PO DAILY, #30 CAP 01/29/19 Metoprolol Succinate* (Toprol XL*) 100 Mg Tab.sr.24h, 100 MG PO DAILY, #30 TAB 01/29/19 Metformin Hcl* (Metformin Hcl*) 500 Mg Tablet, 500 MG PO WITH BREAKFAST DINNE, #60 TAB 01/29/19 Lurasidone Hcl (LATUDA) 40 Mg Tablet, 40 MG PO DAILY, #30 TAB 01/29/19 Loperamide Hcl* (Loperamide Hcl*) 2 Mg Cap, 2 MG PO Q6H, CAP 01/29/19 Iron Sucrose (Venofer) 200 Mg/10 Ml Vial, 10 ML IV Q7D, VIAL 01/29/19 Imatinib Mesylate* (Gleevec*) 100 Mg Tablet, 200 MG PO BID, TAB 01/29/19 Guaifenesin* (Refenesen*) 400 Mg Tablet, 400 MG PO BID PRN for COUGH, TAB 01/29/19 Furosemide* (Furosemide*) 20 Mg Tablet, 20 MG PO BID, #30 TAB 01/29/19 Dabigatran Etexilate Mesylate* (Pradaxa*) 150 Mg Capsule, 150 MG PO Q12H, CAP 01/29/19 Budesonide-Formoterol Fumarate* (Symbicort*) 160-4.5 Hfa.aer.ad, 2 PUFF INHALATION BID, #1 EACH 01/29/19 Azithromycin* (Azithromycin*) 250 Mg Tablet, 250 MG PO DAILY, #4 TAB THREE TIMES A WEEK FOR COPD 01/29/19 Atorvastatin Calcium* (Atorvastatin Calcium*) 20 Mg Tablet, 20 MG PO QHS, #30 TAB 01/29/19 Albuterol Sulfate (Proair Respiclick) 90 Mcg Aer.pow.ba, 2 PUFF INHALATION Q4 PRN for SHORTNESS OF BREATH, #1 BOTTLE 01/29/19 Medications Current Medications IV Flush (NS 3 ml) 3 ml PER PROTOCOL IV ; Start 01/29/19 at 19:30 Norepinephrine 250 ml @ 1.875 mls/ hr TITRATE IV Last administered on 02/05/19 02:09; Admin Dose 9.375 MLS/HR; Start 01/29/19 at 21:00 Fentanyl 100 ml @ 2.5 mls/hr TITRATE IV Last administered on 02/06/19at 10:42; Admin Dose 10 MLS/HR; Start 01/29/19 at 21:00 Midazolam HCl 50 ml @ 1 mls/hr TITRATE IV Last administered on 02/06/19 05:23; Admin Dose 4 MLS/HR; Start 01/29/19 at 21:00 Ipratropium Hiawatha (Atrovent Hfa) 4 puff Q4H RESP THERAPY INH Last administered on 02/06/19 09:30; Admin Dose 4 PUFF; Start 01/29/19 at 21:28 Propofol 100 ml @ 2.964 mls/ hr Q12H IV Last administered on 02/06/19at 10:32; Admin Dose 17.784 MLS/HR; Start 01/30/19 at 03:00 Albuterol (Ventolin Hfa) 4 puff Q4H RESP THERAPY PRN INH SHORTNESS OF BREATH; Start 01/30/19 at 11:00 Cefepime HCl 50 ml @ 100 mls/hr Q12 IVPB Last administered on 02/06/19at 08:21; Admin Dose 100 MLS/HR; Start 01/30/19 at 12:30 Vancomycin HCl (Vanco Iv Per Pharmacy) VANCOMYCIN PER PHARMACY PER PROTOCOL XX ; Start 01/30/19 at 11:30 Miscellaneous Information 1 ea NOTE XX ; Start 01/30/19 at 15:00 Glucose (Glutose) 15 gm Q15M PRN PO DECREASED GLUCOSE; Start 01/30/19 at 15:00 Glucose (Glutose) 22.5 gm Q15M PRN PO DECREASED GLUCOSE; Start 01/30/19 at 15:00 Dextrose (D50w Syringe) 25 ml Q15M PRN IV DECREASED GLUCOSE; Start 01/30/19 at 15:00 Dextrose (D50w Syringe) 50 ml Q15M PRN IV DECREASED GLUCOSE; Start 01/30/19 at 15:00 Glucagon (Glucagen) 1 mg Q15M PRN IM DECREASED GLUCOSE; Start 01/30/19 at 15:00 Glucose (Glutose) 15 gm Q15M PRN BUCCAL DECREASED GLUCOSE; Start 01/30/19 at 15:00 Insulin Aspart (Novolog Insulin Pen) NOVOLOG *MODERATE* ALGORI... Q4 SC Last administered on 02/06/19 08:31; Admin Dose 2 UNIT; Start 02/02/19 at 09:00 Famotidine (Pepcid Iv) 20 mg DAILY IV Last administered on 02/06/19 08:21; Admin Dose 20 MG; Start 02/02/19 at 09:00 Acetaminophen (Tylenol Liquid) 650 mg Q4H PRN NGT MILD PAIN(1-3)OR ELEVATED TEMP Last administered on 02/03/19 04:21; Admin Dose 650 MG; Start 02/02/19 at 20:30 Furosemide (Lasix) 20 mg BID DIURETICS NGT Last administered on 02/06/19 05:14; Admin Dose 20 MG; Start 02/03/19 at 18:00 Trazodone HCl (Desyrel) 25 mg QHS NGT Last administered on 02/05/19 21:15; Admin Dose 25 MG; Start 02/03/19 at 21:00 Atorvastatin Calcium (Lipitor) 20 mg HS NGT Last administered on 02/05/19 21:15; Admin Dose 20 MG; Start 02/03/19 at 21:00 Docusate Sodium (Colace Liquid Cup) 100 mg BID NGT Last administered on 02/06/19 08:21; Admin Dose 100 MG; Start 02/03/19 at 11:00 Enoxaparin Sodium (Lovenox) 100 mg Q12H SC Last administered on 02/06/19 11:00; Admin Dose 100 MG; Start 02/03/19 at 11:30 Vancomycin HCl 1.25 gm/Sodium Chloride 250 ml @ 83.333 mls/ hr Q24H IVPB Last administered on 02/06/19 01:03; Admin Dose 83.333 MLS/HR; Start 02/04/19 at 02:00 Insulin Glargine (Lantus) 20 units DAILY@2000 SC Last administered on 02/05/19 21:17; Admin Dose 20 UNITS; Start 02/04/19 at 20:00 Lorazepam (Ativan) 0.5 mg Q6H PRN IV AGITATION/ANXIETY; Start 02/04/19 at 11:30 Phenylephrine HCl 40 mg/Dextrose 250 ml @ 37.5 mls/hr TITRATE IV Last administered on 02/06/19at 09:19; Admin Dose 75 MLS/HR; Start 02/05/19 at 12:00 Senna (Senokot) 1 tab BID PRN PO CONSTIPATION; Start 02/06/19 at 09:00 Allergies: Coded Allergies: No Known Allergy (Unverified , 01/29/19) Past Surgical History Past Surgical Hx: no surgical history, other (Recent cervical spine stabilization) Social History Alcohol Use: none Smoking Status: Current some day smoker Drug Use: none Exam/Review of Systems Exam Vitals Vital Signs Date Temp Pulse Resp B/P (MAP) Pulse Ox O2 O2 Flow FiO2 Time Delivery Rate 02/06/19 69 16 96 30 11:25 02/06/19 119/60 11:15 (79) 02/06/19 Mechanical 11:00 Ventilator 02/06/19 98.7 08:00 Intake and Output 02/05/19 02/05/19 02/06/19 1515:00 23:00 07:00 IntakeIntake Total 1233.6323 ml 957.996 ml 1248.972 ml OutputOutput Total 570 ml 400 ml 350 ml BalanceBalance 663.6323 ml 557.996 ml 898.972 ml Constitutional: obese, other (Sedated) Head: normocephalic, atraumatic, other (Trached) Respiratory: congested cough, crackles/rales, diminished breath sounds, labored breathing Cardiovascular: regular rate and rhythm, nl pulses Extremities: edema Neurological: other (Sedated) Results Result Diagram: 02/06/19 0500 02/06/19 0500 Results 24hrs Laboratory Tests Test 02/05/19 13:03 02/05/19 17:32 02/05/19 21:13 02/06/19 01:01 Bedside Glucose 183 188 173 142 Test 02/06/19 05:00 02/06/19 05:13 02/06/19 07:00 02/06/19 08:29 White Blood Count 8.2 # Red Blood Count 2.54 L Hemoglobin 8.1 L Hematocrit 25.0 L Mean Corpuscular 98.4 Volume Mean Corpuscular 31.9 Hemoglobin Mean Corpuscular 32.4 Hemoglobin Concen t Red Cell 12.6 Distribution Width Platelet Count 318 Mean Platelet 9.9 Volume Immature 6.500 H Granulocytes % Neutrophils % Segmented 84 H Neutrophils % (Manual) Lymphocytes % Lymphocytes % 5 L (Manual) Monocytes % Monocytes % 4 (Manual) Eosinophils % Eosinophils % 6 (Manual) Basophils % Metamyelocytes % 1 H (manual) Nucleated Red 1 H Blood Cells % Immature 0.530 H Granulocytes # Neutrophils # Lymphocytes 0.4 L (Manual) Lymphocytes # Monocytes # Monocytes # 0.3 (Manual) Eosinophils # Basophils # Metamyelocytes # 0.0 Nucleated Red Blood Cells # Platelet Estimate NORMAL Giant Platelets 1 H Polychromasia 1+ Anisocytosis 1+ Microcytosis 1+ Sodium Level 138 Potassium Level 3.9 Chloride Level 100 Carbon Dioxide 35 H Level Anion Gap 3 L Blood Urea 31 H Nitrogen Creatinine 0.79 Est Glomerular > 60 Filtrat Rate mL/min Glucose Level 159 Calcium Level 8.1 L Phosphorus Level 2.8 Magnesium Level 2.3 Bedside Glucose 173 176 Blood Gas Blood arterial Specimen Source Arterial Blood 02/06/2019 8:00:0 Date Drawn 0 AM Arterial Blood pH 7.416 (Temp corrected) Arterial Blood 51.0 H pCO2 (Temp correct) Arterial Blood 127.1 H pO2 (Temp corrected) Arterial Blood 32.0 H HCO3 Arterial Blood 6.5 H Base Excess Arterial Blood 97.8 Oxygen Saturation Adeel Test ACCEPTAB Arterial Blood Left Radial Gas Puncture Site Arterial 0.3 Blood Carboxyhemo globin Arterial Blood 0 Methemoglobin Blood Gas A-a O2 26.9 H Differential Oxyhemoglobin 97.5 Percent Blood Gas 37.0 Temperature Blood Gas 18.0 Respiration Rate Blood Gas Actual 18 Respiration Rate Blood Gas VENT - AC Modality FiO2 30.0 Blood Gas Tidal 600.0 Volume Blood Gas High 5.0 PEEP Setting Blood Gas T [facility] Notified Whom Blood Gas 02/06/2019 8:13:1 Notified Time 8 AM Test 02/06/19 12:14 Bedside Glucose 202 Medications Medication Current Medications IV Flush (NS 3 ml) 3 ml PER PROTOCOL IV ; Start 01/29/19 at 19:30 Norepinephrine 250 ml @ 1.875 mls/ hr TITRATE IV Last administered on 02/05/19at 02:09; Admin Dose 9.375 MLS/HR; Start 01/29/19 at 21:00 Fentanyl 100 ml @ 2.5 mls/hr TITRATE IV Last administered on 02/06/19 10:42; Admin Dose 10 MLS/HR; Start 01/29/19 at 21:00 Midazolam HCl 50 ml @ 1 mls/hr TITRATE IV Last administered on 02/06/19 05:23; Admin Dose 4 MLS/HR; Start 01/29/19 at 21:00 Ipratropium Hiawatha (Atrovent Hfa) 4 puff Q4H RESP THERAPY INH Last administered on 02/06/19at 09:30; Admin Dose 4 PUFF; Start 01/29/19 at 21:28 Propofol 100 ml @ 2.964 mls/ hr Q12H IV Last administered on 02/06/19 10:32; Admin Dose 17.784 MLS/HR; Start 01/30/19 at 03:00 Albuterol (Ventolin Hfa) 4 puff Q4H RESP THERAPY PRN INH SHORTNESS OF BREATH; Start 01/30/19 at 11:00 Cefepime HCl 50 ml @ 100 mls/hr Q12 IVPB Last administered on 02/06/19 08:21; Admin Dose 100 MLS/HR; Start 01/30/19 at 12:30 Vancomycin HCl (Vanco Iv Per Pharmacy) VANCOMYCIN PER PHARMACY PER PROTOCOL XX ; Start 01/30/19 at 11:30 Miscellaneous Information 1 ea NOTE XX ; Start 01/30/19 at 15:00 Glucose (Glutose) 15 gm Q15M PRN PO DECREASED GLUCOSE; Start 01/30/19 at 15:00 Glucose (Glutose) 22.5 gm Q15M PRN PO DECREASED GLUCOSE; Start 01/30/19 at 15:00 Dextrose (D50w Syringe) 25 ml Q15M PRN IV DECREASED GLUCOSE; Start 01/30/19 at 15:00 Dextrose (D50w Syringe) 50 ml Q15M PRN IV DECREASED GLUCOSE; Start 01/30/19 at 15:00 Glucagon (Glucagen) 1 mg Q15M PRN IM DECREASED GLUCOSE; Start 01/30/19 at 15:00 Glucose (Glutose) 15 gm Q15M PRN BUCCAL DECREASED GLUCOSE; Start 01/30/19 at 15:00 Insulin Aspart (Novolog Insulin Pen) NOVOLOG *MODERATE* ALGORI... Q4 SC Last administered on 5/27/19at 08:31; Admin Dose 2 UNIT; Start 02/02/19 at 09:00 Famotidine (Pepcid Iv) 20 mg DAILY IV Last administered on 02/06/19 08:21; Admin Dose 20 MG; Start 02/02/19 at 09:00 Acetaminophen (Tylenol Liquid) 650 mg Q4H PRN NGT MILD PAIN(1-3)OR ELEVATED TEMP Last administered on 02/03/19 04:21; Admin Dose 650 MG; Start 02/02/19 at 20:30 Furosemide (Lasix) 20 mg BID DIURETICS NGT Last administered on 02/06/19 05:14; Admin Dose 20 MG; Start 02/03/19 at 18:00 Trazodone HCl (Desyrel) 25 mg QHS NGT Last administered on 02/05/19 21:15; Admin Dose 25 MG; Start 02/03/19 at 21:00 Atorvastatin Calcium (Lipitor) 20 mg HS NGT Last administered on 02/05/19 21:15; Admin Dose 20 MG; Start 02/03/19 at 21:00 Docusate Sodium (Colace Liquid Cup) 100 mg BID NGT Last administered on 02/06/19 08:21; Admin Dose 100 MG; Start 02/03/19 at 11:00 Enoxaparin Sodium (Lovenox) 100 mg Q12H SC Last administered on 02/06/19 11:00; Admin Dose 100 MG; Start 02/03/19 at 11:30 Vancomycin HCl 1.25 gm/Sodium Chloride 250 ml @ 83.333 mls/ hr Q24H IVPB Last administered on 02/06/19 01:03; Admin Dose 83.333 MLS/HR; Start 02/04/19 at 02:00 Insulin Glargine (Lantus) 20 units DAILY@2000 SC Last administered on 02/05/19 21:17; Admin Dose 20 UNITS; Start 02/04/19 at 20:00 Lorazepam (Ativan) 0.5 mg Q6H PRN IV AGITATION/ANXIETY; Start 02/04/19 at 11:30 Phenylephrine HCl 40 mg/Dextrose 250 ml @ 37.5 mls/hr TITRATE IV Last adminis tered on 02/06/19 09:19; Admin Dose 75 MLS/HR; Start 02/05/19 at 12:00 Senna (Senokot) 1 tab BID PRN PO CONSTIPATION; Start 02/06/19 at 09:00 CARLITOS GUZMAN February 06, 2019 12:37
[2019-02-06] MEDS ORDERED: LIDOCAINE 1% (MDV) 20 ML INJ ONE (13:15)
[2019-02-06] MEDS ORDERED: morphine 4 MG/ML VIAL ONE (13:15)
[2019-02-06] MEDS ORDERED: morphine 2 MG INJ ONE (13:16)
[2019-02-06] MEDS ORDERED: LIDOCAINE 1% (MPF) 30 ML INJ INJ PRN (13:30)
[2019-02-06] MEDS ORDERED: morphine 2 MG INJ IV ONE (13:30)
[2019-02-06] MEDS ORDERED: morphine 4 MG/ML VIAL IV ONE (13:30)
[2019-02-06] MEDS ORDERED: morphine 10 MG INJ IV ONE (13:30)
--- NOTE | 2019-02-06 14:24 | OPR ---
DATE OF OPERATION: PREOPERATIVE DIAGNOSIS: Right hydropneumothorax. POSTOPERATIVE DIAGNOSIS: Right hydropneumothorax. OPERATION PERFORMED: Right chest tube placement. SURGEON: Gayla Mac MD ANESTHESIA: Local plus IV sedation. CONSENT: Risks, benefits, complications, alternative therapies were explained to the patient and the family. Consent was obtained. OPERATIVE TECHNIQUE: The patient was placed in supine position, prepped and draped in usual sterile fashion.. This is a patient who consistently had a pneumothorax despite having one chest tube. I mohamud d a long discussion with the sister and we proceeded. A 2 cm incision was made in right 7th intercostal space in horizontal fashion. Incision was taken do wn to subcutaneous tissue which was then opened using Metzenbaum scissors. Access was gained into th e pleural cavity. Chest tube was advanced into the pleural cavity without any difficulties. A large air leak was noted. Chest tube was secured to skin using 2-0 Vicryl suture. Appropriate dressings were applied. The patient tolerated procedure well. Dictated By: GAYLA CRUMP/AUGUSTO Conf#: [id number] DID#: [id number]
[2019-02-06] MEDS ORDERED: NORepinephrine 8MG/250 ML (PMX 250 ML IV SCH (20:30)
[2019-02-06] MEDS: ATORVASTATIN 20 MG TAB NGT SCH (20:31)
[2019-02-06] MEDS: traZODone 50 MG TAB NGT SCH (20:37)
[2019-02-06] MEDS: INSULIN GLARGINE [LANTus] (100 UNITS/ML) SYG SC SCH (21:32)
[2019-02-07] VITALS (46 sets, daily range): BP systolic 0–145; BP diastolic 0–89; PULSE 0–123; RESP 7–23
[2019-02-07] MEDS: ENOXAPARIN 100 MG/ML SYG SC SCH ×2 (00:29→10:53)
[2019-02-07] MEDS: FENTAnyl (DRIP) 1000 mcg/100mL 100 ML IV SCH ×2 (00:49→09:11)
[2019-02-07] MEDS: NORepinephrine 8MG/250 ML (PMX 250 ML IV SCH ×2 (00:51→07:06)
[2019-02-07] MEDS: PHENYLephrine 80 MG in DEXTROSE 5% 242 ML IV SCH ×2 (00:54→05:26)
[2019-02-07] MEDS: INSULIN ASPART [NOVOLOG] 3 ML PEN SC SCH ×3 (01:16→08:37)
[2019-02-07] MEDS: IPRATROPIUM (HFA) 12.9 GM INHALER INH SCH ×3 (01:19→08:08)
[2019-02-07] MEDS: VANCOMYCIN HCL 1.25 GM in SOD CHLORIDE 0.9% 250 ML IVPB SCH (02:59)
[2019-02-07] MEDS: PROPOFOL 100 ML IV SCH ×2 (03:00→08:47)
[2019-02-07] MEDS ORDERED: VASOPRESSIN 60 UNIT in DEXTROSE 5% 57 ML IV SCH (03:30)
[2019-02-07] MEDS: FUROSEMIDE 20 MG TAB NGT SCH (05:31)
[2019-02-07] MEDS: CEFEPIME 2GM/50 ML (PMX) 50 ML IVPB SCH (08:32)
[2019-02-07] MEDS: DOCUSATE SODIUM 10 MG/ML (10ML CUP) NGT SCH (08:32)
[2019-02-07] MEDS: FAMOTIDINE 20 MG INJ IV SCH (08:34)
--- NOTE | 2019-02-07 09:08 | CONS ---
Consult Date/Type/Reason Admit Date/Time January 29, 2019 at 18:27 Initial Consult Date 01/30/19 Type of Consult Pulmonary Requesting Provider: DUSTY VILLASENOR Date/Time of Note DATE: 02/07/19 TIME: 09:06 Subjective Patient had chest tube replaced yesterday. Clinically less subcutaneous emphysema although radiographically no significant changes. No pneumothorax seen. Objective Vital Signs Date Temp Pulse Resp B/P (MAP) Pulse Ox O2 O2 Flow FiO2 Time Delivery Rate 02/07/19 98.4 89 18 115/71 100 Mechanical 07:45 (86) Ventilator 02/07/19 30 05:20 Intake and Output 02/06/19 02/06/19 02/07/19 1515:00 23:00 07:00 IntakeIntake Total 1304.8 ml 1198.5 ml 1441.221 ml OutputOutput Total 805 ml 505 ml 225 ml BalanceBalance 499.8 ml 693.5 ml 1216.221 ml Exam GENERAL: Elderly gentleman orally intubated on mechanical ventilation appears comfortable at rest VITAL SIGNS: per chart NECK: Supple. No JVD or lymphadenopathy. Decreased subcutaneous emphysema CARDIAC EXAM: S1, S2. No added sounds or murmurs. CHEST: Diminished air entry bilaterally ABDOMEN: Soft, nontender. No guarding or rebound. EXTREMITIES: No cyanosis, clubbing edema +2 NEUROLOGIC: Generalized weakness. Vent Setting Ventilator Support Mode: AC Fraction of Inspired Oxygen pe: 30 Positive End Expiratory Pressu: 5.0 Results/Medications Result Diagram: 02/07/19 0300 02/07/19 0300 Results 24 hrs Laboratory Tests Test 02/06/19 12:14 02/06/19 17:28 02/06/19 19:49 02/07/19 01:12 Bedside Glucose 202 170 147 214 Test 02/07/19 03:00 02/07/19 05:24 02/07/19 08:30 White Blood Count 11.8 #H Red Blood Count 2.71 L Hemoglobin 8.8 L Hematocrit 26.7 L Mean Corpuscular 98.5 Volume Mean Corpuscular 32.5 Hemoglobin Mean Corpuscular 33.0 Hemoglobin Concent Red Cell 12.4 Distribution Width Platelet Count 350 Mean Platelet Volume 9.8 Immature 7.400 H Granulocytes % Neutrophils % Segmented 60 Neutrophils % (Manual) Band Neutrophils % 15 H (Manual) Lymphocytes % Lymphocytes % 12 L (Manual) Monocytes % Monocytes % (Manual) 5 Eosinophils % Eosinophils % 4 (Manual) Basophils % Myelocytes % 3 H (Manual) Promyelocytes % 1 H (Manual) Nucleated Red Blood 4 H Cells % Immature 0.870 H Granulocytes # Neutrophils # Neutrophils # 7.3 (Manual) Band Neutrophils # 1.7 H Lymphocytes (Manual) 1.4 Lymphocytes # Monocytes # Monocytes # (Manual) 0.5 Eosinophils # Basophils # Myelocytes # 0.3 H Promyelocytes # 0.1 H Nucleated Red Blood Cells # Platelet Estimate NORMAL Polychromasia 2+ Poikilocytosis 1+ Anisocytosis 1+ Microcytosis 1+ Sodium Level 136 Potassium Level 4.1 Chloride Level 98 Carbon Dioxide Level 35 H Anion Gap 3 L Blood Urea Nitrogen 31 H Creatinine 1.00 Est Glomerular > 60 Filtrat Rate mL/min Glucose Level 185 Calcium Level 8.1 L Phosphorus Level 4.1 Magnesium Level 2.3 Bedside Glucose 220 238 H Medications Current Medications IV Flush (NS 3 ml) 3 ml PER PROTOCOL IV ; Start 01/29/19 at 19:30 Norepinephrine 250 ml @ 1.875 mls/ hr TITRATE IV Last administered on 02/07/19 07:06; Admin Dose 33.75 MLS/HR; Start 01/29/19 at 21:00 Fentanyl 100 ml @ 2.5 mls/hr TITRATE IV Last administered on 02/07/19at 00:49; Admin Dose 10 MLS/HR; Start 01/29/19 at 21:00 Midazolam HCl 50 ml @ 1 mls/hr TITRATE IV Last administered on 02/06/19 05:23; Admin Dose 4 MLS/HR; Start 01/29/19 at 21:00 Ipratropium Holliday (Atrovent Hfa) 4 puff Q4H RESP THERAPY INH Last administered on 02/07/19 08:08; Admin Dose 4 PUFF; Start 01/29/19 at 21:28 Propofol 100 ml @ 2.964 mls/ hr Q12H IV Last administered on 02/07/19 08:47; Admin Dose 17.784 MLS/HR; Start 01/30/19 at 03:00 Albuterol (Ventolin Hfa) 4 puff Q4H RESP THERAPY PRN INH SHORTNESS OF BREATH; Start 01/30/19 at 11:00 Cefepime HCl 50 ml @ 100 mls/hr Q12 IVPB Last administered on 02/07/19at 08:32; Admin Dose 100 MLS/HR; Start 01/30/19 at 12:30 Vancomycin HCl (Vanco Iv Per Pharmacy) VANCOMYCIN PER PHARMACY PER PROTOCOL XX ; Start 01/30/19 at 11:30 Miscellaneous Information 1 ea NOTE XX ; Start 01/30/19 at 15:00 Glucose (Glutose) 15 gm Q15M PRN PO DECREASED GLUCOSE; Start 01/30/19 at 15:00 Glucose (Glutose) 22.5 gm Q15M PRN PO DECREASED GLUCOSE; Start 01/30/19 at 15:00 Dextrose (D50w Syringe) 25 ml Q15M PRN IV DECREASED GLUCOSE; Start 01/30/19 at 15:00 Dextrose (D50w Syringe) 50 ml Q15M PRN IV DECREASED GLUCOSE; Start 01/30/19 at 15:00 Glucagon (Glucagen) 1 mg Q15M PRN IM DECREASED GLUCOSE; Start 01/30/19 at 15:00 Glucose (Glutose) 15 gm Q15M PRN BUCCAL DECREASED GLUCOSE; Start 01/30/19 at 15:00 Insulin Aspart (Novolog Insulin Pen) NOVOLOG *MODERATE* ALGORI... Q4 SC Last administered on 02/07/19at 08:37; Admin Dose 6 UNIT; Start 02/02/19 at 09:00 Famotidine (Pepcid Iv) 20 mg DAILY IV Last administered on 02/07/19at 08:34; Admin Dose 20 MG; Start 02/02/19 at 09:00 Acetaminophen (Tylenol Liquid) 650 mg Q4H PRN NGT MILD PAIN(1-3)OR ELEVATED TEMP Last administered on 02/03/19at 04:21; Admin Dose 650 MG; Start 02/02/19 at 20:30 Furosemide (Lasix) 20 mg BID DIURETICS NGT Last administered on 02/07/19at 05:31; Admin Dose 20 MG; Start 02/03/19 at 18:00 Trazodone HCl (Desyrel) 25 mg QHS NGT Last administered on 02/06/19at 20:37; Admin Dose 25 MG; Start 02/03/19 at 21:00 Atorvastatin Calcium (Lipitor) 20 mg HS NGT Last administered on 02/06/19 20:31; Admin Dose 20 MG; Start 02/03/19 at 21:00 Docusate Sodium (Colace Liquid Cup) 100 mg BID NGT Last administered on 02/07/19 08:32; Admin Dose 100 MG; Start 02/03/19 at 11:00 Enoxaparin Sodium (Lovenox) 100 mg Q12H SC Last administered on 02/07/19 00:29; Admin Dose 100 MG; Start 02/03/19 at 11:30 Vancomycin HCl 1.25 gm/Sodium Chloride 250 ml @ 83.333 mls/ hr Q24H IVPB Last administered on 02/07/19 02:59; Admin Dose 83.333 MLS/HR; Start 02/04/19 at 02:00 Insulin Glargine (Lantus) 20 units DAILY@2000 SC Last administered on 02/06/19 21:32; Admin Dose 20 UNITS; Start 02/04/19 at 20:00 Lorazepam (Ativan) 0.5 mg Q6H PRN IV AGITATION/ANXIETY; Start 02/04/19 at 11:30 Senna (Senokot) 1 tab BID PRN PO CONSTIPATION; Start 02/06/19 at 09:00 Phenylephrine HCl 80 mg/Dextrose 250 ml @ 18.75 mls/ hr TITRATE IV Last administered on 02/07/19 05:26; Admin Dose 56.25 MLS/HR; Start 02/06/19 at 22:30 Vasopressin 60 unit/Dextrose 60 ml @ 1.2 mls/hr Q12H IV Last administered on 02/07/19 04:00; Admin Dose 1.2 MLS/HR; Start 02/07/19 at 03:30 Assessment/Plan Hospital Course (Demo Recall) IMPRESSION 1. Chronic obstructive pulmonary disease exacerbation. 2. Right pneumothorax, likely secondary to positive pressure ventilation. Still with persistent air leak. Significant subcutaneous emphysema noted. Chest tube in situ air leak noted 3. Possible underlying bullous lung disease. 4. Morbid obesity. 5. Septic shock source continues Sebastien-Synephrine multiple vasopressors 6. History of CML 7. History of obstructive sleep apnea, and pulmonary hypertension 8. History of substance abuse in the past. History of anxiety disorder. Plan 1. Trial of SIMV 2. Bronchodilators. 3. Antibiotics. 4. Chest tube replaced continue to suction 5. Vasopressors as needed. 6. Deep vein thrombosis and gastrointestinal prophylaxis. 7. Resume anxiolytics psych medications Critical care time 40 minutes. Prognosis guarded. Appreciate palliative care recommendations YESENIA ALCANTAR MD, [facility] February 07, 2019 09:08
--- NOTE | 2019-02-07 10:31 | PN ---
Date/Time of Note Date/Time of Note DATE: 02/07/19 TIME: 10:19 Assessment/Plan VTE Prophylaxis Risk score (from Nsg)>0 risk: 9 SCD applied (from Nsg): Yes Pharmacological prophylaxis: LMWH Lines/Catheters IV Catheter Type (from Nrsg): Central Line Central line still needed: Yes Urinary Cath still in place: Yes Reason Cath still needed: other (indicate) (intubated) Assessment/Plan Assessment/Plan 58 yo man with NICM (40-45%), CML on imatinib since 05/2017, pAF on pradaza, DM, pulm HTN (mPAP 37), CHF with frequent exacerbations (last December 2018), former smoker, former cocaine and amphetamine use. Presented with respiratory distress and hypercapnic respiratory failure. Was on BIPAP when decompensated and found to have pneumothorax, intubated and with R chest tube on admission. # Acute hypercapnic respiratory failure - Chronic severe pulmonary hypertension, CHF. - Currently intubated. Failing CPAP trials. - For now continue as needed Bronchodilators, tapering steroids, continue antibiotics - Monitor white blood cell (trending down now), continue mechanical ventilation per pulmonary - Previously declined for lung transplant due to CML. # Pneumothorax: Found on chest x-ray , chest tube has been in place and was repositioned on 02/06, patient again has some subcutaneous emphysema but based on the serial chest x-rays since then the pneumothorax was appearing to have been resolved. Again patient still has subcutaneous emphysema as well. -Monitor, follow-up further recommendations from CTS team for chest tube management -Also follow up pulmonary recommendations -chest x-ray ordered for today and is pending #Leukocytosis: trending down; no fevers. Patient is on last day of steroids which we have been tapering over the last few days -Continue broad-spectrum antibiotics follow-up final culture results -Follow-up further recommendations from infectious disease consult #Hypertension/shock: Systolic blood pressure lowered this morning, still on Sebastien- Synephrine, now may be started on levo fed because of this. No fevers -Monitor, continue pressor support and try to wean off as tolerated if possible -Obviously holding patient's home blood pressure medicines for now # C-spine sx -occurred at outside hospital recently within the last one 1 week apparently -Again, awaiting medical records from [facility] for further investigate this since the patient was discharged from there 7 days ago after being treated there for C neck pathology and apparently had surgery there at that time on the cervical spine. -Monitor, follow-up recommendations from PT alejandra #History of CML: -Patient on Gleevec at home, but we are not able to give it here as it is not able to be crushed for the G-tube #History of likely MIGEL and pulmonary hypertension: Again presently intubated. -Monitor for now, holding off on restarting patient's home sildenafil because of patient's current hypotension #Paroxysmal A. fib: Takes Pradaxa at home. However patient has been in sinus rhythm -Monitor, continue Lovenox 1 mg/kg as we cannot crush the Pradaxa now to give to him Dispo: Further management pending clinical course, again because patient has been failing weaning trials consideration for tracheostomy will be considered as well. Patient previously expressed no desire for prolonged mechanical ventilation, palliative following for possible terminal extubation. Critical care time spent in patient care today equals 45 minutes. Result Diagram: 02/07/19 0300 02/07/19 0300 Subjective 24 Hr Interval Summary Free Text/Dictation Had chest tube placement yesterday 02/06. Currently intubated, sedated on propofol. On pressors. Exam/Review of Systems Exam Vitals Vital Signs Date Temp Pulse Resp B/P (MAP) Pulse Ox O2 O2 Flow FiO2 Time Delivery Rate 02/07/19 87 08:00 02/07/19 98.4 18 115/71 100 Mechanical 07:45 (86) Ventilator 02/07/19 30 05:20 Intake and Output 02/06/19 02/06/19 02/07/19 1515:00 23:00 07:00 IntakeIntake Total 1304.8 ml 1198.5 ml 1441.221 ml OutputOutput Total 805 ml 505 ml 225 ml BalanceBalance 499.8 ml 693.5 ml 1216.221 ml Exam Gen: Obese man intubated, sedated. HEENT: Moist mucous membranes. ET tube in place. Card: Regular rate and rhythm. Pulm: Mechanical breath sounds bilaterally Chest: R flank chest tube in place, some bloody drainage. Abd: Soft, nondistended. Ext: No cyanosis/clubbing/edema Skin: Subcutaneous emphysema throughout chest, abdomen, even down to feet. Results Results 24hrs Laboratory Tests Test 02/06/19 12:14 02/06/19 17:28 02/06/19 19:49 02/07/19 01:12 Bedside Glucose 202 170 147 214 Test 02/07/19 03:00 02/07/19 05:24 02/07/19 08:30 White Blood Count 11.8 #H Red Blood Count 2.71 L Hemoglobin 8.8 L Hematocrit 26.7 L Mean Corpuscular 98.5 Volume Mean Corpuscular 32.5 Hemoglobin Mean Corpuscular 33.0 Hemoglobin Concent Red Cell 12.4 Distribution Width Platelet Count 350 Mean Platelet Volume 9.8 Immature 7.400 H Granulocytes % Neutrophils % Segmented 60 Neutrophils % (Manual) Band Neutrophils % 15 H (Manual) Lymphocytes % Lymphocytes % 12 L (Manual) Monocytes % Monocytes % (Manual) 5 Eosinophils % Eosinophils % 4 (Manual) Basophils % Myelocytes % 3 H (Manual) Promyelocytes % 1 H (Manual) Nucleated Red Blood 4 H Cells % Immature 0.870 H Granulocytes # Neutrophils # Neutrophils # 7.3 (Manual) Band Neutrophils # 1.7 H Lymphocytes (Manual) 1.4 Lymphocytes # Monocytes # Monocytes # (Manual) 0.5 Eosinophils # Basophils # Myelocytes # 0.3 H Promyelocytes # 0.1 H Nucleated Red Blood Cells # Platelet Estimate NORMAL Polychromasia 2+ Poikilocytosis 1+ Anisocytosis 1+ Microcytosis 1+ Sodium Level 136 Potassium Level 4.1 Chloride Level 98 Carbon Dioxide Level 35 H Anion Gap 3 L Blood Urea Nitrogen 31 H Creatinine 1.00 Est Glomerular > 60 Filtrat Rate mL/min Glucose Level 185 Calcium Level 8.1 L Phosphorus Level 4.1 Magnesium Level 2.3 Bedside Glucose 220 238 H Medications Medication Current Medications IV Flush (NS 3 ml) 3 ml PER PROTOCOL IV ; Start 01/29/19 at 19:30 Norepinephrine 250 ml @ 1.875 mls/ hr TITRATE IV Last administered on 02/07/19at 07:06; Admin Dose 33.75 MLS/HR; Start 01/29/19 at 21:00 Fentanyl 100 ml @ 2.5 mls/hr TITRATE IV Last administered on 02/07/19at 09:11; Admin Dose 10 MLS/HR; Start 01/29/19 at 21:00 Midazolam HCl 50 ml @ 1 mls/hr TITRATE IV Last administered on 02/06/19 05:23; Admin Dose 4 MLS/HR; Start 01/29/19 at 21:00 Ipratropium [place] (Atrovent Hfa) 4 puff Q4H RESP THERAPY INH Last administered on 02/07/19 08:08; Admin Dose 4 PUFF; Start 01/29/19 at 21:28 Propofol 100 ml @ 2.964 mls/ hr Q12H IV Last administered on 02/07/19 08:47; Admin Dose 17.784 MLS/HR; Start 01/30/19 at 03:00 Albuterol (Ventolin Hfa) 4 puff Q4H RESP THERAPY PRN INH SHORTNESS OF BREATH; Start 01/30/19 at 11:00 Cefepime HCl 50 ml @ 100 mls/hr Q12 IVPB Last administered on 02/07/19 08:32; Admin Dose 100 MLS/HR; Start 01/30/19 at 12:30 Vancomycin HCl (Vanco Iv Per Pharmacy) VANCOMYCIN PER PHARMACY PER PROTOCOL XX ; Start 01/30/19 at 11:30 Miscellaneous Information 1 ea NOTE XX ; Start 01/30/19 at 15:00 Glucose (Glutose) 15 gm Q15M PRN PO DECREASED GLUCOSE; Start 01/30/19 at 15:00 Glucose (Glutose) 22.5 gm Q15M PRN PO DECREASED GLUCOSE; Start 01/30/19 at 15:00 Dextrose (D50w Syringe) 25 ml Q15M PRN IV DECREASED GLUCOSE; Start 01/30/19 at 15:00 Dextrose (D50w Syringe) 50 ml Q15M PRN IV DECREASED GLUCOSE; Start 01/30/19 at 15:00 Glucagon (Glucagen) 1 mg Q15M PRN IM DECREASED GLUCOSE; Start 01/30/19 at 15:00 Glucose (Glutose) 15 gm Q15M PRN BUCCAL DECREASED GLUCOSE; Start 01/30/19 at 15:00 Insulin Aspart (Novolog Insulin Pen) NOVOLOG *MODERATE* ALGORI... Q4 SC Last administered on 02/07/19 08:37; Admin Dose 6 UNIT; Start 02/02/19 at 09:00 Famotidine (Pepcid Iv) 20 mg DAILY IV Last administered on 02/07/19 08:34; Admin Dose 20 MG; Start 02/02/19 at 09:00 Acetaminophen (Tylenol Liquid) 650 mg Q4H PRN NGT MILD PAIN(1-3)OR ELEVATED TEMP Last administered on 02/03/19 04:21; Admin Dose 650 MG; Start 02/02/19 at 20:30 Furosemide (Lasix) 20 mg BID DIURETICS NGT Last administered on 02/07/19 05:31; Admin Dose 20 MG; Start 02/03/19 at 18:00 Trazodone HCl (Desyrel) 25 mg QHS NGT Last administered on 02/06/19 20:37; Admin Dose 25 MG; Start 02/03/19 at 21:00 Atorvastatin Calcium (Lipitor) 20 mg HS NGT Last administered on 02/06/19 20:31; Admin Dose 20 MG; Start 02/03/19 at 21:00 Docusate Sodium (Colace Liquid Cup) 100 mg BID NGT Last administered on 02/07/19 08:32; Admin Dose 100 MG; Start 02/03/19 at 11:00 Enoxaparin Sodium (Lovenox) 100 mg Q12H SC Last administered on 02/07/19 00:29; Admin Dose 100 MG; Start 02/03/19 at 11:30 Vancomycin HCl 1.25 gm/Sodium Chloride 250 ml @ 83.333 mls/ hr Q24H IVPB Last administered on 02/07/19 02:59; Admin Dose 83.333 MLS/HR; Start 02/04/19 at 0 2:00 Insulin Glargine (Lantus) 20 units DAILY@2000 SC Last administered on 02/06/19 21:32; Admin Dose 20 UNITS; Start 02/04/19 at 20:00 Lorazepam (Ativan) 0.5 mg Q6H PRN IV AGITATION/ANXIETY; Start 02/04/19 at 11:30 Senna (Senokot) 1 tab BID PRN PO CONSTIPATION Last administered on 02/07/19 09:08; Admin Dose 1 TAB; Start 02/06/19 at 09:00 Phenylephrine HCl 80 mg/Dextrose 250 ml @ 18.75 mls/ hr TITRATE IV Last administered on 02/07/19 05:26; Admin Dose 56.25 MLS/HR; Start 02/06/19 at 22:3 0 Vasopressin 60 unit/Dextrose 60 ml @ 1.2 mls/hr Q12H IV Last administered on 02/07/19at 04:00; Admin Dose 1.2 MLS/HR; Start 02/07/19 at 03:30 HENRIETTA CLEMONS MD February 07, 2019 10:31
--- NOTE | 2019-02-07 13:25 | PN ---
Date/Time of Note Date/Time of Note DATE: 02/07/19 TIME: 13:24 Assessment/Plan Lines/Catheters IV Catheter Type (from Nrsg): Central Line Ferrera in Place (from Nrsg): Yes Assessment/Plan Assessment/Plan Status post second chest tube Pneumothorax resolved Still with subcutaneous emphysema Continue chest tube suction Subjective 24 Hr Interval Summary Constitutional: no complaints, improved, ambulates, BM, flatus, urine output Pain Control: well controlled Exam/Review of Systems Vital Signs Vitals Vital Signs Date Temp Pulse Resp B/P (MAP) Pulse Ox O2 O2 Flow FiO2 Time Delivery Rate 02/07/19 0 18 0/0 (0) Mechanical 11:00 Ventilator 02/07/19 100 09:45 02/07/19 30 08:00 02/07/19 98.4 07:45 Intake and Output 02/06/19 02/06/19 02/07/19 1515:00 23:00 07:00 IntakeIntake Total 1304.8 ml 1198.5 ml 1720.321 ml OutputOutput Total 805 ml 505 ml 325 ml BalanceBalance 499.8 ml 693.5 ml 1395.321 ml Exam Head: normocephalic, atraumatic Eyes: nl conjunctiva, EOMI, nl lids, nl sclera ENMT: nl external ears & nose, nl lips & teeth, nl nasal mucosa & septum, mucosa pink and moist Neck: supple, non-tender Respiratory: clear to auscultation, normal air movement Cardiovascular: regular rate and rhythm, nl pulses Gastrointestinal: soft, nl liver, spleen, non-tender Musculoskeletal: nl extremities to inspection, nl gait and stance Results Result Diagram: 02/07/19 03002/07/190 GAYLA BURLESON MD February 07, 2019 13:25
--- NOTE | 2019-02-07 20:06 | DES ---
Date/Time of Note Date/Time of Note DATE: 02/07/19 TIME: 19:56 Discharge/ Summary Admission/Discharge Info Admit Date/Time January 29, 2019 at 18:27 Date/Time February 07, 2019 at 11:12 Final Diagnosis Cardiac arrest (instantly) Due to hypotension (days) Due to severe decompensated heart failure and pulmonary hypertension Preliminary Cause of Cardiac arrest Admit History 58 yo man with NICM (40-45%), CML on imatinib since 05/2017, pAF on pradaza, DM, pulm HTN (mPAP 37), CHF with frequent exacerbations (last December 2018), former smoker, former cocaine and amphetamine use. Presented with respiratory distress and hypercapnic respiratory failure. Was on BIPAP when decompensated and found to have pneumothorax, intubated and with R chest tube on admission. Hospital Course The patient was admitted to the ICU after being intubated, and requiring a chest tube for pneumothorax as above. This pneumothorax resolved. For his COPD he was started on steroids and bronchodilators. He was started on empiric antibiotics, blood and sputum cultures were negative. He was very mildly fluid overloaded and was started on low dose Lasix. Throughout hospital course he was hypotensive and required several pressors. Attempted ventilator weaning daily, but he was unable to be weaned. Probably from severe COPD, CHF, and severe pulmonary hypertension. After speaking to family, they explained that the patient had expressed several times that he did not want to be dependent on artificial ventilation for a prolonged period of time. His sister is durable power of health care attorney. After consulting palliative care, a shared decision was made to change code status to DNR. This morning of his passing, the patient was on high levels of propofol due to the family's wish that he not suffer at all. In the late morning his blood pressure began dropping, even after maxing out four pressors. He went bradycardic then developed PEA arrest. No resuscitation was attempted. I examined the patient at 11:12 and found no carotid or femoral pulse, and no heart sounds. Pupils fixed and dilated. I notified his sister of the patient's p assing via phone. Pending Labs/Cultures Laboratory Tests Test 02/07/19 01:12 02/07/19 03:00 02/07/19 05:24 02/07/19 08:30 Bedside 214 220 238 Glucose mg/dL (70-220) mg/dL (70-220) mg/dL (70-220) White Blood 11.8 Count 10^3/ul (4.8-1 0.8) Red Blood 2.71 Count 10^6/ul (4.70- 6.10) Hemoglobin 8.8 g/dl (14.0-18. 0) Hematocrit 26.7 % (42.0-52.0) Mean 98.5 Corpuscular fl (82.0-101.0 Volume ) Mean 32.5 Corpuscular pg (29.0-33.0) Hemoglobin Mean 33.0 Corpuscular g/dl (32.0-37. Hemoglobin Conc 0) ent Red Cell 12.4 Distribution % (11.5-14.5) Width Platelet Count 350 10^3/UL (140-4 15) Mean Platelet 9.8 Volume fl (7.4-10.4) Immature 7.400 Granulocytes % % (0.001-0.429 ) Neutrophils % % (39.0-77.0) Segmented 60 % (39-77) Neutrophils % (Manual) Band 15 % (0-4) Neutrophils % (Manual) Lymphocytes % % (15.0-51.0) Lymphocytes % 12 % (15-51) (Manual) Monocytes % % (0.0-11.0) Monocytes % 5 % (0-11) (Manual) Eosinophils % % (0.0-7.0) Eosinophils % 4 % (0-7) (Manual) Basophils % % (0.0-2.0) Myelocytes % 3 % (0-0) (Manual) Promyelocytes % 1 % (0-0) (Manual) Nucleated Red 4 % (0-0) Blood Cells % Immature 0.870 Granulocytes # 10^3/ul (0.0-0 .031) Neutrophils # 10^3/ul (1.6-7 .5) Neutrophils # 7.3 (Manual) 10^3/ul (1.6-7 .5) Band 1.7 Neutrophils # 10^3/ul (0.0-0 .6) Lymphocytes 1.4 (Manual) 10^3/ul (0.8-2 .9) Lymphocytes # 10^3/ul (0.8-2 .9) Monocytes # 10^3/ul (0.3-0 .9) Monocytes # 0.5 (Manual) 10^3/ul (0.3-0 .9) Eosinophils # 10^3/ul (0.0-0 .5) Basophils # 10^3/ul (0.0-0 .1) Myelocytes # 0.3 10^3/ul (0.0-0 .0) Promyelocytes 0.1 # 10^3/ul (0-0) Nucleated Red 10^3/ul (0.0-0 Blood Cells # .0) Platelet NORMAL Estimate Polychromasia 2+ (0-0) Poikilocytosis 1+ (0-0) Anisocytosis 1+ (0-0) Microcytosis 1+ (0-0) Sodium Level 136 mmol/L (135-14 4) Potassium 4.1 Level mmol/L (3.5-5. 1) Chloride Level 98 mmol/L (97-110 ) Carbon Dioxide 35 Level mmol/L (21-31) Anion Gap 3 (5-13) Blood Urea 31 Nitrogen mg/dl (7-20) Creatinine 1.00 mg/dl (0.61-1. 24) Est Glomerular > 60 Filtrat mL/min (>60) Rate mL/min Glucose Level 185 mg/dl (70-220) Calcium Level 8.1 mg/dl (8.4-10. 2) Phosphorus 4.1 Level mg/dl (2.5-4.9 ) Magnesium 2.3 Level mg/dl (1.7-2.5 ) HENRIETTA CLEMONS MD February 07, 2019 20:06
== END 2019-02-07 11:12 | disposition expired | DRG 207 ==
LOC: E/R 16:12 → ICU 18:27 → SUATTDRO 19:07
PROVIDERS: ADMIT Internal Medicine; ATTEND Internal Medicine
PROC: 0BH17EZ Insertion of Endotracheal Airway into Trachea, Via Natural or Artificial Opening (ICD-10-PCS; principal; 2019-01-29)
PROC: 5A1955Z Respiratory Ventilation, Greater than 96 Consecutive Hours (ICD-10-PCS; 2019-01-29)
PROC: 06HY33Z Insertion of Infusion Device into Lower Vein, Percutaneous Approach (ICD-10-PCS; 2019-01-29)
PROC: 0W9930Z Drainage of Right Pleural Cavity with Drainage Device, Percutaneous Approach (ICD-10-PCS; 2019-01-29)
PROC: 0W9930Z Drainage of Right Pleural Cavity with Drainage Device, Percutaneous Approach (ICD-10-PCS; 2019-02-01)
PROC: 0WP930Z Removal of Drainage Device from Right Pleural Cavity, Percutaneous Approach (ICD-10-PCS; 2019-02-01)
PROC: 0W9930Z Drainage of Right Pleural Cavity with Drainage Device, Percutaneous Approach (ICD-10-PCS; 2019-02-06)
DX: J96.02 Acute respiratory failure with hypercapnia (principal); A41.9 Sepsis, unspecified organism; R65.21 Severe sepsis with septic shock; C92.10 Chronic myeloid leukemia, BCR/ABL-positive, not having achieved remission; J95.812 Postprocedural air leak; J93.9 Pneumothorax, unspecified; E66.01 Morbid (severe) obesity due to excess calories; F17.200 Nicotine dependence, unspecified, uncomplicated; G47.33 Obstructive sleep apnea (adult) (pediatric); I27.20 Pulmonary hypertension, unspecified; I48.0 Paroxysmal atrial fibrillation; I50.9 Heart failure, unspecified; J96.01 Acute respiratory failure with hypoxia; Z66 Do not resuscitate; T81.82XA Emphysema (subcutaneous) resulting from a procedure, initial encounter; Y83.8 Other surgical procedures as the cause of abnormal reaction of the patient, or of later complication, without mention of misadventure at the time of the procedure; Z68.31 Body mass index [BMI] 31.0-31.9, adult; Z98.890 Other specified postprocedural states; Z79.01 Long term (current) use of anticoagulants; Z79.899 Other long term (current) drug therapy
CPT/HCPCS: 31500; 36415; 36600; 70450; 70490; 71045; 71250; 80048; 80053; 80202; 81001; 81003; 82550; 82553; 82803; 82962; 83036; 83605; 83735; 83880; 84100; 84145; 84235; 84439; 84484; 85025; 85610; 85730; 87070; 87081; 87086; 93005; 93306; 94002; 94003; 94640; 94644; 94660; 94664; 94770; 96365; 96375; 96376; C1751; J0153; J0282; J0692; J1100; J1650; J1815; J1940; J1956; J2250; J2270; J2370; J2405; J2920; J3010; J3370; J3475; J7030; J7050; J7060; J7070; J7512